=== PATIENT | male | born 1990 | race African-American/Black ===

== ENCOUNTER 2020-01-26 12:09 | Emergency (ER) | payer MEDICARE, MEDICAID, SELFPAY ==
--- NOTE | ~2020-01-26 | XR_ITS ---
EXAMINATION: XR chest 2V EXAM DATE: 01/26/2020 13:12 INDICATION: Chest pain and tightness. TECHNIQUE: Frontal and lateral projections of the chest obtained and reviewed. Comparison is made to prior examination from 10/21/2019. FINDINGS: There is a right-sided portacatheter. The lungs are clear. There are no pleural effusions . Cardiac silhouette is prominent but magnified on this AP technique. There is no pneumothorax elke pected. The bones and soft tissues are unremarkable. IMPRESSION: No acute cardiopulmonary findings. Reviewed, dictated and finalized at location B.
[2020-01-26 12:07] VITALS: BP 138/75; PULSE 74; RESP 16; TEMP 36.3; O2SAT 100
[2020-01-26 12:19] VITALS: PULSE 75
--- NOTE | 2020-01-26 12:29 | ECG_ITS ---
Measurements Intervals [place] Rate: 70 P: 45 MS: 174 QRS: 31 QRSD: 96 T: 28 QT: 389 QTc: 422 Interpretive Statements SINUS RHYTHM POSSIBLE LEFT ATRIAL ENLARGEMENT BORDERLINE ECG Electronically Signed On 01-26-2020 13:02:21 CDT by Jasper Ruiz D.O.
--- NOTE | 2020-01-26 12:30 | ED.GENADULT ---
HPI - General Adult General Chief complaint: Unspecified Stated complaint: CP Time Seen by Provider: 01/26/20 12:21 Source: patient and family Mode of arrival: ambulatory Limitations: no limitations History of Present Illness HPI narrative: Pt is a 29 y/o male who presents to the ED with c/o a sudden onset of lightheadedness, CP, sweats, SOB, and numbness/tingling to his fingers and toes that lasted about 10 minutes. Pt states that he was about to start his dialysis treatment when the Sx started. 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 Ram and he has been getting dialysis for 3 years. Pt got out of [facility] yesterday after he had a parathyroidectomy on Friday. Pt's mother states that he had 3.5 nodules removed. He was Rx Calcium after he had his surgery. He denies a H/o anxiety or panic attacks, but he reports a H/O depression. Pt did not start new medications today. He states that he is not in any pain in the ED bed. MD complaint: lightheadedness Onset (ago): day(s) (this morning) Pain Consistency: now resolved Associated symptoms: other ( CP, sweats, SOB, and numbness/tingling to his fingers and toes) Treatments prior to arrival: none Related Data Home Medications Medication Instructions Recorded Confirmed B complex with C 20-folic acid 1 cap PO DAILY 10/07/19 10/07/19 [[place] Caps] atorvastatin 5 mg PO DAILY 10/07/19 10/07/19 calcitriol 0.25 mcg PO 3XW 10/07/19 10/07/19 cholecalciferol (vitamin D3) 5,000 unit PO DAILY 10/07/19 10/07/19 [Vitamin D3] cinacalcet 90 mg PO DAILY 10/07/19 10/07/19 docusate sodium 100 mg PO BID 10/07/19 10/07/19 folic acid 1 mg PO DAILY 10/07/19 10/07/19 furosemide 80 mg PO BID 10/07/19 10/07/19 metoprolol tartrate 100 mg PO Q12H 10/07/19 10/07/19 mirtazapine 7.5 mg PO HS 10/07/19 10/07/19 omeprazole 40 mg PO BID 10/07/19 10/07/19 ondansetron HCl 4 mg PO DAILY 10/07/19 10/07/19 potassium chloride [Klor-Con M10] 10 meq PO DAILY 10/07/19 10/07/19 senna 8.6 mg PO DAILY 10/07/19 10/07/19 sevelamer carbonate 800 mg PO DIRECTED 10/07/19 10/07/19 warfarin 10 mg PO DAILY 10/07/19 10/07/19 Allergies Allergy/AdvReac Type Severity Reaction Status Date / Time bacitracin Allergy Unknown RASH THAT Verified 10/22/19 10:31 SPREADS benzalkonium chloride Allergy Unknown RASH THAT Verified 10/22/19 10:31 SPREADS gramicidin D Allergy Unknown RASH THAT Verified 10/22/19 10:31 SPREADS hydrocortisone Allergy Unknown RASH THAT Verified 10/22/19 10:31 SPREADS neomycin Allergy Unknown Rash Verified 11/11/19 09:37 polymyxin B Allergy Unknown RASH THAT Verified 10/22/19 10:31 SPREADS Review of Systems Review of Systems: All systems reviewed & are unremarkable except as noted in HPI and below Constitutional: Constitutional: Reports other (sweats) Cardiovascular: Cardiovascular: Reports chest pain and Reports lightheadedness Respiratory: Respiratory: Reports dyspnea Neurologic: Reports numbness (to fingers and toes) and Reports tingling (to fingers and toes) PMFSH Past Medical History Medical History (Updated 01/26/20 @ 14:48 by Marcelo Helm MD) A-fib Anemia Asthma 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 Chronic renal failure CVA (cerebral vascular accident) Dialysis patient DVT (deep venous thrombosis) GERD (gastroesophageal reflux disease) H/O: HTN (hypertension) History of angina History of Clostridium difficile colitis IBS (irritable bowel syndrome) Pneumonia Sleep apnea Surgical History Surgical History (Updated 01/26/20 @ 12:57 by Ila Stanton) H/O parathyroidectomy History of tonsillectomy Social History Social History Smoking status: Never smoker Alcohol intake: never Gender identity (if verbalized by the patient): Male Exam Narrative: Exam Narrative: General appearance: Well-developed, well-nourished Skin: Normal color Head: Normocephalic, nontraumatic
[2020-01-26 12:45] LABS: Basophils Percent Auto 0.2 % (0.2-1.2); Eosinophils Absolute Auto 0.2 K/mm3 (0-0.3); Eosinophils Percent Auto 3.6 % (0-4.4); Hematocrit 28.5 % (42.0-52.0); Immature Granulocyte Absolute 0.02 K/mm3 (0.00-0.031); Immature Granulocyte Percent A 0.3 % (0-0.5); Lymphocytes Absolute Auto 1.72 K/mm3 (0.9-3.2); Lymphocytes Percent Auto 29.6 % (18.3-44.2); Mean Corpuscular HGB Conc 31.6 g/dl (32-36); Mean Corpuscular Hemoglobin 32.4 pg (26-34); Mean Corpuscular Volume 102.5 fl (80-100); Mean Platelet Volume 9.6 fl (7.4-10.4); Monocytes Absolute Auto 0.6 K/mm3 (0.1-0.6); Monocytes Percent Auto 9.8 % (2.6-8.5); Neutrophils Absolute Auto 3.3 K/mm3 (1.3-6.7); Neutrophils Percent Auto 56.5 % (45.5-73.1); Platelet Count Result 202 k/mm3 (150-375); Red Blood Count 2.78 M/mm3 (4.6-6.20); Red Cell Distribution Width 14.2 % (11.5-14.5); White Blood Count 5.8 K/mm3 (4.5-10.0)
[2020-01-26 12:55] LABS: INR 1.1; Prothrombin Time 13.4 Seconds (11.1-14.7)
[2020-01-26 12:56] LABS: Partial Thromboplastin Time 41.3 SECONDS (22.3-36.8)
[2020-01-26 13:03] LABS: Blood Urea Nitrogen 98 mg/dL (9-20); Calcium 8.3 mg/dL (8.4-10.2); Carbon Dioxide 22 mmol/L (22-30); Chloride 96 mmol/L (98-107); Glucose 89 mg/dL (75-110); Potassium 6.3 mmol/L (3.4-5.0); Sodium 132 mmol/L (137-145)
[2020-01-26 13:10] LABS: Estimated CRCL calculation 8 ml/min; Estimated Glomerular Filt Rate 4; Troponin I < 0.012 ng/mL (0.000-0.034)
[2020-01-26 13:31] LABS: Thyroid Stimulating Hormone 0.074 uIU/mL (0.465-4.680)
[2020-01-26 14:02] VITALS: BP 138/87; PULSE 74; RESP 16; O2SAT 96
[2020-01-26 15:13] VITALS: BP 140/84; PULSE 80; RESP 16; O2SAT 98
== END 2020-01-26 15:20 | disposition home or self-care (01) ==
PROVIDERS: Emergency Provider Emergency Medicine; PCP Emergency Medicine
DX: R20.2 Paresthesia of skin (principal); I48.91 Unspecified atrial fibrillation; D64.9 Anemia, unspecified; J45.909 Unspecified asthma, uncomplicated; I12.0 Hypertensive chronic kidney disease with stage 5 chronic kidney disease or end stage renal disease; N18.6 End stage renal disease; Z99.2 Dependence on renal dialysis; G47.30 Sleep apnea, unspecified; Z86.73 Personal history of transient ischemic attack (TIA), and cerebral infarction without residual deficits; Z86.718 Personal history of other venous thrombosis and embolism; Z79.01 Long term (current) use of anticoagulants
CPT/HCPCS: 36415; 71046; 80048; 84443; 84484; 85025; 85610; 85730; 93005; 99284

== ENCOUNTER → 2020-06-21 11:16 | Outpatient (CLI) | payer MEDICARE, MEDICAID, SELFPAY ==
--- NOTE | ~2020-06-21 | MR_ITS ---
EXAMINATION: MR thoracic spine wo con EXAM DATE: 06/21/2020 12:31 INDICATION: Acute mid to low back pain. TECHNIQUE: Multi-sequential, multiplanar MR images of the thoracic spine were obtained without contra st. Sagittal T1, T2, T2 fat saturation, axial T2 weighted images reviewed. Comparison is made to vanesa or examination from 10/15/2017. FINDINGS: There is fluid signal within the T7-8 disc level, with edema throughout these vertebral bod ies. This is new compared to previous examination. Most likely an acute inflammatory process such as discitis and osteomyelitis. No paraspinal or epidural fluid collection suspected. The spinal cord sig nal intensity and intrinsic morphology is normal. Mild diffuse thoracic facet arthropathy. Central ca nal and neural foramen are widely patent. Several small hemangiomata. IMPRESSION: 1. Acute inflammatory process centered at T7-8, suspicious for discitis/osteomyelitis. 2. Mild thoracic facet arthropathy. Kemal Land MD acknowledged receipt of suspected acute finding at 20:52 this evening. Reviewed, dictated and finalized at location A. IMPRESSION: 1. Acute inflammatory process centered at T7-8, suspicious for discitis/osteom yelitis. 2. Mild thoracic facet arthropathy. Kemal Land MD acknowledged receipt of suspected acute finding at 20:52 thi s evening.
--- NOTE | ~2020-06-21 | MR_ITS ---
EXAMINATION: MR lumbar spine wo con EXAM DATE: 06/21/2020 12:38 INDICATION: Acute low back pain. TECHNIQUE: Multi-sequential, multiplanar MR images of the lumbar spine were obtained without contrast . Sagittal T1, T2, T2 fat saturation images. Axial T2 weighted images. Comparison is made to prior examination from 10/15/2017. FINDINGS: There is moderate disc disease at L4-5, mild disc disease at L2-3 and L3-4. The conus medul isabela terminates at the T12-L1 level and has normal signal intensity and morphology. There are scatt ered focal signal abnormalities consistent with hemangiomata, otherwise without focal suspicious adrian ow signal abnormalities. There is 3 mm retrolisthesis L4 on L5. The vertebral bodies are otherwise al igned. Paraspinal soft tissue is unremarkable. Level by level evaluation: T12-L1: Disc does not extend beyond the endplate margin. Facet arthropathy: Mild. Neural foraminal stenosis: No stenosis. Central canal stenosis: No stenosis. L1-L2: Disc does not extend beyond the endplate margin. Facet arthropathy: Mild. Neural foraminal stenosis: No stenosis. Central canal stenosis: No stenosis. L2-L3: There is a mild diffuse disc bulge. Facet arthropathy: Mild. Neural foraminal stenosis: Mild left. Central canal stenosis: No stenosis. L3-L4: There is a mild diffuse disc bulge. Facet arthropathy: Mild to moderate. Neural foraminal stenosis: Mild left. Central canal stenosis: Mild. L4-L5: There is a moderate diffuse disc bulge. Facet arthropathy: Moderate. Neural foraminal stenosis: Mild to moderate bilateral. Central canal stenosis: Moderate. L5-S1: There is a minimal diffuse disc bulge. Facet arthropathy: Mild. Neural foraminal stenosis: No stenosis. Central canal stenosis: No stenosis. There is been mild progression of the disc disease and retrolisthesis at L4-5, and the central canal stenosis. IMPRESSION: 1. L4-5 grade 1 retrolisthesis, moderate disc disease, arthropathy and central canal stenosis. 2. Otherwise mild lumbar spondylosis. Reviewed, dictated and finalized at location A.
== END ==
PROVIDERS: Visit Provider Internal Medicine Hematology & Oncology
DX: D59.3 Hemolytic-uremic syndrome (principal); M47.896 Other spondylosis, lumbar region
CPT/HCPCS: 72146; 72148

== ENCOUNTER 2021-10-18 09:31 | Emergency (ER) | payer OTHER, SELFPAY ==
--- NOTE | ~2021-10-18 | CT_ITS ---
EXAMINATION: CT abdomen pelvis w con EXAM DATE: 10/18/2021 10:30 INDICATION: Abdominal pain, multiple lumps in abdomen. On dialysis. TECHNIQUE: Spiral CT of the abdomen and pelvis was performed following intravenous injection of 100 m L Omnipaque 350. Axial, coronal and sagittal images of the abdomen and pelvis were reviewed. The do se-length product (DLP) for this examination was 1632.53 mGy-cm. The exposure was tailored according to patient size (auto mA exposure control), and iterative reconstruction (ASIR) was used as addition al dose reduction technique. Comparison is made to prior examination from 06/19/2019. FINDINGS: Calcified vasa deferentia indicating patient may have diabetes. Additionally, multiple smal l nodules of subcutaneous density likely insulin injection site granulomas which are not present on p revious examination. Perhaps these correlate to patient's multiple lumps reported, please clinically correlate. Previously seen peritoneal dialysis catheter no longer present. Appearance to kidneys consistent with end-stage renal disease. There is bilateral nephrolithiasis. No hydronephrosis. Liver, spleen, adren al glands and pancreas are unremarkable. There is moderate diffuse colonic colonic diverticulosis. There is no adjacent inflammatory change t o suggest diverticulitis. Expected amount of colonic stool. Small bowel and stomach are unremarkable. No retroperitoneal or pelvic lymphadenopathy. Right femoral bone islands. Lung bases unremarkable. IMPRESSION: 1. Moderate colonic diverticulosis. 2. No acute intra-abdominal findings. Reviewed, dictated and finalized at location A. OLATE PACKER
[2021-10-18 09:33] VITALS: BP 123/70; PULSE 92; RESP 20; O2SAT 99
[2021-10-18 10:00] VITALS: BP 102/51; PULSE 87; RESP 14; O2SAT 97
[2021-10-18] MEDS: HYDROmorphone HCL INJ (*CRX) 1 MG/ML SYR 0.5 MG IV PUSH (10:13)
[2021-10-18] MEDS: ONDANSETRON INJ 4 MG/2 ML VIAL IV PUSH (10:14)
[2021-10-18] MEDS: SODIUM CHLORIDE 0.9% IV 1,000 ML 999 ML IV CONT (10:15)
[2021-10-18 10:57] LABS: Basophils Percent Auto 0.5 % (0.2-1.2); Eosinophils Absolute Auto 0.2 K/mm3 (0-0.3); Eosinophils Percent Auto 1.9 % (0-4.4); Hematocrit 37.9 % (42.0-52.0); Immature Granulocyte Absolute 0.07 K/mm3 (0.00-0.031); Immature Granulocyte Percent A 0.8 % (0-0.5); Lymphocytes Absolute Auto 2.66 K/mm3 (0.9-3.2); Lymphocytes Percent Auto 30.4 % (18.3-44.2); Mean Corpuscular HGB Conc 31.7 g/dl (32-36); Mean Corpuscular Volume 104.1 fl (80-100); Mean Platelet Volume 9.7 fl (7.4-10.4); Monocytes Absolute Auto 0.7 K/mm3 (0.1-0.6); Monocytes Percent Auto 8.2 % (2.6-8.5); Neutrophils Absolute Auto 5.1 K/mm3 (1.3-6.7); Neutrophils Percent Auto 58.2 % (45.5-73.1); Platelet Count Result 282 k/mm3 (150-375); Red Blood Count 3.64 M/mm3 (4.6-6.20); Red Cell Distribution Width 13.9 % (11.5-14.5); White Blood Count 8.7 K/mm3 (4.5-10.0)
[2021-10-18 11:00] VITALS: BP 110/68; PULSE 79; RESP 14; O2SAT 97
[2021-10-18 11:09] LABS: Alanine Aminotransferase 12 U/L (4-50); Albumin Level 4.9 g/dL (3.5-5.1); Alkaline Phosphatase 100 U/L (38-126); Anion Gap 15 mmol/L (8-16); Aspartate Amino Transferase 21 U/L (17-59); Bilirubin,Total 0.4 mg/dL (0.2-1.3); Blood Urea Nitrogen 25 mg/dL (9-20); Calcium 9.2 mg/dL (8.4-10.2); Carbon Dioxide 27 mmol/L (22-30); Chloride 93 mmol/L (98-107); Estimated CRCL calculation 15 ml/min; Estimated Glomerular Filt Rate 8; Glucose 98 mg/dL (65-110); Lipase 212 U/L (23-300); Potassium 4.1 mmol/L (3.4-5.0); Sodium 135 mmol/L (137-145)
--- NOTE | 2021-10-18 12:16 | ED.ABDPAIN ---
HPI - Abdominal Pain General Chief Complaint: Abdominal Pain Stated Complaint: abd pain Time Seen by Provider: 10/18/21 09:52 Source: patient and RN notes reviewed Mode of arrival: ambulatory Limitations: no limitations History of Present Illness HPI narrative: Patient presents with right upper quadrant pain for the last few weeks. Got worse today. Worse with movement, better with certain position. Associated with nausea. Patient reported history of constipation because of the dialysis medication. Patient had hemodialysis this morning prior to arrival to the emergency room. Patient denies any fever, chills, vomiting, or diarrhea. Patient denies any history of abdominal surgery, history of peritoneal dialysis catheter years ago. History of hypertension, hemodialysis, hyperlipidemia, asthma. Also history of parathyroidectomy Related Data Home Medications Medication Instructions Recorded Confirmed B complex with C 20-folic acid 1 cap PO DAILY 10/07/19 09/14/21 [[place] Caps] atorvastatin 5 mg PO DAILY 10/07/19 09/14/21 cholecalciferol (vitamin D3) 5,000 unit PO DAILY 10/07/19 09/14/21 [Vitamin D3] folic acid 1 mg PO DAILY 10/07/19 09/14/21 furosemide 80 mg PO BID 10/07/19 09/14/21 metoprolol tartrate 100 mg PO Q12H 10/07/19 09/14/21 omeprazole 40 mg PO BID 10/07/19 09/14/21 warfarin 9 mg PO DAILY 10/07/19 09/14/21 gabapentin 100 mg capsule 300 mg PO BID cap 04/04/21 09/14/21 potassium chloride 20 meq PO DAILY 07/19/21 09/14/21 Allergies Allergy/AdvReac Type Severity Reaction Status Date / Time bacitracin Allergy Unknown RASH THAT Verified 10/03/21 14:02 SPREADS benzalkonium chloride Allergy Unknown RASH THAT Verified 10/03/21 14:02 SPREADS gramicidin D Allergy Unknown RASH THAT Verified 10/03/21 14:02 SPREADS hydrocortisone Allergy Unknown RASH THAT Verified 10/03/21 14:02 SPREADS neomycin Allergy Unknown Rash Verified 10/03/21 14:02 polymyxin B Allergy Unknown RASH THAT Verified 10/03/21 14:02 SPREADS Review of Systems Review of Systems: CONSTITUTIONAL: Denies fever, chills, or sweats. EYES: Denies visual changes, redness, or discharge. ENT: Denies rhinorrhea, congestion, sore throat, or otalgia. CARDIOVASCULAR: Denies chest pain, palpitations, or edema. RESPIRATORY: Denies cough or dyspnea. GASTROINTESTINAL: Denies abdominal pain, nausea, vomiting, or diarrhea. GENITOURINARY: Denies dysuria or hematuria. SKIN: Denies rash or itching. MUSCULOSKELETAL: Denies back pain, joint pain, or myalgia. NEUROLOGIC: Denies headache, numbness, or weakness. PSYCHIATRIC: Denies anxiety or depression. 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 Chronic renal failure CVA (cerebral vascular accident) Dialysis patient DVT (deep venous thrombosis) GERD (gastroesophageal reflux disease) H/O: HTN (hypertension) History of angina History of Clostridium difficile colitis IBS (irritable bowel syndrome) Pneumonia Sleep apnea Surgical History Surgical History H/O parathyroidectomy History of tonsillectomy Family History Family History Sibling Hypertension Patient's sister is in good health Patient's brother is in good health Mother Family history of rheumatoid arthritis Family history of neuropathy Father Patient's father is in good health Carcinoma of colon Social History Social History Smoking status: Former smoker Alcohol intake: never Gender identity (if verbalized by the patient): Male Exam Narrative: General appearance: Well-developed, well-nourished Skin: Normal color Head: Normocephalic, nontraumatic Eyes: Clear conjunctiva ENT: Oropharynx normal, ears normal, nose
[2021-10-18 12:31] VITALS: BP 113/81; PULSE 78; RESP 14; O2SAT 97
== END 2021-10-18 12:31 | disposition home or self-care (01) ==
PROVIDERS: Emergency Provider Emergency Medicine; PCP Emergency Medicine
DX: R10.9 Unspecified abdominal pain (principal); E78.5 Hyperlipidemia, unspecified; I48.91 Unspecified atrial fibrillation; I12.9 Hypertensive chronic kidney disease with stage 1 through stage 4 chronic kidney disease, or unspecified chronic kidney disease; N18.9 Chronic kidney disease, unspecified; G47.30 Sleep apnea, unspecified; Z99.2 Dependence on renal dialysis; Z86.2 Personal history of diseases of the blood and blood-forming organs and certain disorders involving the immune mechanism; Z87.09 Personal history of other diseases of the respiratory system; Z87.891 Personal history of nicotine dependence; Z86.73 Personal history of transient ischemic attack (TIA), and cerebral infarction without residual deficits; Z86.718 Personal history of other venous thrombosis and embolism; Z87.19 Personal history of other diseases of the digestive system; Z87.01 Personal history of pneumonia (recurrent); Z79.899 Other long term (current) drug therapy; Z79.01 Long term (current) use of anticoagulants
CPT/HCPCS: 36415; 74177; 80053; 83690; 85025; 96361; 96374; 96375; 99284; J1170; J2405; J7030; Q9967

== ENCOUNTER 2022-03-30 23:51 | Emergency (ER) | payer OTHER, SELFPAY ==
--- NOTE | ~2022-03-30 | XR_ITS ---
XR chest 1V portable DATE: 03/31/2022 01:16 INDICATION: DARYA TECHNIQUE: Portable upright AP chest on 03/31/2022 at 0113 hours COMPARISON: 01/26/2020 AP and lateral chest FINDINGS: Right Port-A-Cath catheter tip in the superior vena cava. No pulmonary consolidation, pleural effusion or pneumothorax is evident. Heart size is likely within normal range considering magnification associated with AP projection. IMPRESSION: No active disease Right Port-A-Cath Reviewed, dictated and finalized at location A.
[2022-03-30 23:52] VITALS: BP 103/63; PULSE 79; RESP 17; TEMP 35.7; O2SAT 96
[2022-03-31] VITALS: O2SAT 95
--- NOTE | 2022-03-31 00:08 | ECG_ITS ---
Measurements Intervals [place] Rate: 83 P: 36 UT: 156 QRS: 40 QRSD: 101 T: 1 QT: 378 QTc: 445 Interpretive Statements SINUS RHYTHM DELAYED PRECORDIAL R/S TRANSITION NONSPECIFIC ST & T-WAVE ABNORMALITY- INF/HIGH LAT LEADS BASELINE ARTIFACT- I, AVL, V6 BORDERLINE ECG Electronically Signed On 03-31-2022 7:45:53 CDT by Jasper Ruiz D.O.
[2022-03-31] MEDS: IPRATROPIUM BR 0.02% INH SOLN 0.5 MG/2.5 ML VIAL INHALATION ×3 (00:21→01:10)
[2022-03-31] MEDS: ALBUTEROL SULFATE NEB 2.5 MG/3 ML INH 5 MG INHALATION ×3 (00:21→01:10)
[2022-03-31] MEDS: predniSONE 20 MG TABLET 60 MG PO (00:28)
[2022-03-31 00:30] VITALS: PULSE 80; RESP 20
--- NOTE | 2022-03-31 00:41 | PC.NURSE ---
Patient lacey figueredo, quality assurance lab technician and this RN unable to obtain labs at this time. Notified nurse charge rn, she stated to call phlebotomy. Called [facility] with phlebotomy, she stated she will be on her way draw patient.
--- NOTE | 2022-03-31 00:57 | PC.NURSE ---
Phlebotomy here to draw patient.
[2022-03-31 01:17] LABS: Basophils Absolute Auto 0.1 K/mm3 (0.0-0.1); Basophils Percent Auto 0.3 % (0.2-1.2); Eosinophils Absolute Auto 0.3 K/mm3 (0-0.3); Eosinophils Percent Auto 1.7 % (0-4.4); Hematocrit 39.9 % (42.0-52.0); Hemoglobin 12.3 g/dL (14.0-18.0); Immature Granulocyte Absolute 0.09 K/mm3 (0.00-0.031); Immature Granulocyte Percent A 0.6 % (0-0.5); Lymphocytes Absolute Auto 3.63 K/mm3 (0.9-3.2); Lymphocytes Percent Auto 23.2 % (18.3-44.2); Mean Corpuscular HGB Conc 30.8 g/dl (32-36); Mean Corpuscular Hemoglobin 32.3 pg (26-34); Mean Corpuscular Volume 104.7 fl (80-100); Mean Platelet Volume 10.8 fl (7.4-10.4); Monocytes Absolute Auto 0.5 K/mm3 (0.1-0.6); Monocytes Percent Auto 3.4 % (2.6-8.5); Neutrophils Absolute Auto 11.1 K/mm3 (1.3-6.7); Neutrophils Percent Auto 70.8 % (45.5-73.1); Platelet Count Result 223 k/mm3 (150-375); Red Blood Count 3.81 M/mm3 (4.6-6.20); Red Cell Distribution Width 14.4 % (11.5-14.5); White Blood Count 15.7 K/mm3 (4.5-10.0)
[2022-03-31 01:32] LABS: Alanine Aminotransferase 13 U/L (6-50); Albumin Level 4.8 g/dL (3.5-5.1); Alkaline Phosphatase 97 U/L (38-126); Anion Gap 19 mmol/L (8-16); Aspartate Amino Transferase 20 U/L (17-59); Bilirubin,Total 0.3 mg/dL (0.2-1.3); Blood Urea Nitrogen 51 mg/dL (9-20); Calcium 11.1 mg/dL (8.4-10.2); Carbon Dioxide 24 mmol/L (22-30); Chloride 92 mmol/L (98-107); Glucose 113 mg/dL (65-110); Magnesium 2.4 mg/dL (1.6-2.3); Potassium 4.9 mmol/L (3.4-5.0); Sodium 135 mmol/L (137-145)
[2022-03-31 01:36] LABS: Estimated Glomerular Filt Rate 5; NT Pro B Type Natriuretic Pept 1330 pg/mL (5-100)
[2022-03-31 01:39] LABS: D Dimer 1.15 ug/mL (<0.48)
[2022-03-31 01:40] VITALS: PULSE 78; RESP 19
--- NOTE | 2022-03-31 02:15 | ED.SOB ---
HPI - SOB/Dyspnea General Chief Complaint: Shortness of Breath/Dyspnea Stated Complaint: sob on albuterol neb per EMS Time Seen by Provider: 03/31/22 00:08 History of Present Illness HPI Narrative: 32-year-old male with history of asthma, ESRD on hemodialysis presents here with sudden onset difficulty breathing and chest tightness, he has a nebulizer at home with ipratropium, and this did not help, EMS to give him albuterol the way here and he says that immediately helped him with his symptoms. He has been going dialysis and not missed any appointments, he has been taking more fluid off than usual. No fevers or chills, cough. No nausea or vomiting. He is currently on blood thinners. Related Data Home Medications Medication Instructions Recorded Confirmed B complex with C 20-folic acid 1 cap PO DAILY 10/07/19 03/05/22 [[place] Caps] atorvastatin 5 mg PO DAILY 10/07/19 03/05/22 cholecalciferol (vitamin D3) 5,000 unit PO DAILY 10/07/19 03/05/22 [Vitamin D3] folic acid 1 mg PO DAILY 10/07/19 03/05/22 furosemide 80 mg PO BID 10/07/19 03/05/22 metoprolol tartrate 100 mg PO Q12H 10/07/19 03/05/22 omeprazole 40 mg PO BID 10/07/19 03/05/22 warfarin 9 mg PO DAILY 10/07/19 03/05/22 gabapentin 100 mg capsule 300 mg PO BID cap 04/04/21 03/05/22 Allergies Allergy/AdvReac Type Severity Reaction Status Date / Time bacitracin Allergy Unknown RASH THAT Verified 03/30/22 23:59 SPREADS benzalkonium chloride Allergy Unknown RASH THAT Verified 03/30/22 23:59 SPREADS gramicidin D Allergy Unknown RASH THAT Verified 03/30/22 23:59 SPREADS hydrocortisone Allergy Unknown RASH THAT Verified 03/30/22 23:59 SPREADS neomycin Allergy Unknown Rash Verified 03/30/22 23:59 polymyxin B Allergy Unknown RASH THAT Verified 03/30/22 23:59 SPREADS Review of Systems Review of Systems: CONST: No fever. HEENT: No sore throat C/V: Dizziness RESP: No cough GI: No abdominal pain, nausea, vomiting : No dysuria. M/S: No joint pain. SKIN: No rash. 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 Chronic renal failure CVA (cerebral vascular accident) Dialysis patient DVT (deep venous thrombosis) GERD (gastroesophageal reflux disease) H/O: HTN (hypertension) History of angina History of Clostridium difficile colitis IBS (irritable bowel syndrome) Pneumonia Sleep apnea Surgical History Surgical History H/O parathyroidectomy History of tonsillectomy Family History Family History Sibling Hypertension Patient's sister is in good health Patient's brother is in good health Mother Family history of rheumatoid arthritis Family history of neuropathy Father Patient's father is in good health Carcinoma of colon Social History Social History Smoking status: Former smoker Alcohol intake: never Gender identity (if verbalized by the patient): Male Exam Narrative: EXAMINATION OF ORGAN SYSTEMS/BODY AREAS: Constitutional: Vital signs per nursing GENERAL: Appears to be having difficulty with breathing HEAD: Normal with no signs of head trauma. EYES: EOMI, conjunctiva normal ENT: Hearing grossly intact LUNGS: Nonlabored breathing. HEART: Labored respirations but speaking full sentences, decreased air movement ABD: [Soft], [nontender to palpation] EXT: Normal range of motion SKIN: [No rashes or lesions.] NEURO: [Alert and oriented x 3. No gross focal sensory or strength deficits.] PSYCH: Normal affect Course Course Emergency Course: 32-year-old male presenting with difficulty breathing, vital signs stable, exam shows some labored respirations wi
[2022-03-31 02:31] VITALS: BP 107/65; PULSE 83; RESP 17; TEMP 36.6; O2SAT 96
== END 2022-03-31 02:34 | disposition home or self-care (01) ==
PROVIDERS: Emergency Provider Emergency Medicine; PCP Emergency Medicine
DX: J45.901 Unspecified asthma with (acute) exacerbation (principal); I12.0 Hypertensive chronic kidney disease with stage 5 chronic kidney disease or end stage renal disease; N18.6 End stage renal disease; I48.91 Unspecified atrial fibrillation; D64.9 Anemia, unspecified; K21.9 Gastro-esophageal reflux disease without esophagitis; K58.9 Irritable bowel syndrome, unspecified; G47.30 Sleep apnea, unspecified; Z99.2 Dependence on renal dialysis; Z87.01 Personal history of pneumonia (recurrent); Z86.718 Personal history of other venous thrombosis and embolism; Z86.73 Personal history of transient ischemic attack (TIA), and cerebral infarction without residual deficits; E89.2 Postprocedural hypoparathyroidism; Z79.01 Long term (current) use of anticoagulants; Z87.891 Personal history of nicotine dependence; R06.02 Shortness of breath; R94.31 Abnormal electrocardiogram [ECG] [EKG]
CPT/HCPCS: 36415; 71045; 80053; 83735; 83880; 85025; 85380; 93005; 94640; 99284; J7512

== ENCOUNTER 2023-10-28 14:31 | Outpatient (CLI) | payer MEDICARE, MEDICAID, SELFPAY ==
[2023-10-28 15:32] LABS: SARS-CoV-2 RNA PCR Negative (Negative)
== END 2023-10-28 14:32 | disposition home or self-care (01) ==
PROVIDERS: PCP Emergency Medicine
DX: N18.6 End stage renal disease (principal); Z20.822 Contact with and (suspected) exposure to COVID-19; Z94.0 Kidney transplant status
CPT/HCPCS: 87635

== ENCOUNTER 2023-12-27 14:00 | Emergency (ER) | payer MEDICARE, MEDICAID, SELFPAY ==
[2023-12-27 14:06] VITALS: BP 121/74; PULSE 107; RESP 18; TEMP 36.7; O2SAT 100
[2023-12-27 14:46] VITALS: PULSE 97; RESP 16; O2SAT 100
--- NOTE | 2023-12-27 15:10 | ED.ABDPAIN ---
HPI - Abdominal Pain General Chief Complaint: Abdominal Pain Stated Complaint: ABD PAIN HX KIDNEY TRANSPLANT AT [facility] 11/08 Time Seen by Provider: 12/27/23 15:02 Source: patient, family and EMS Mode of arrival: EMS Limitations: no limitations History of Present Illness HPI narrative: 33 YEARS OLD MALE CAME TO THE EMERGENCY ROOM BY BY AMBULANCE FROM HOME COMPLAINING OF RIGHT LOWER QUADRANT PAIN STARTED 3 DAYS AGO, GOT WORSE THIS MORNING PRIOR TO ARRIVAL. 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 PATIENT HAS BEEN ON HEMODIALYSIS SINCE 2016. HE DENIES ANY FEVER, CHILLS, NAUSEA, VOMITING. Related Data Home Medications Medication Instructions Recorded Confirmed folic acid 1 mg tablet 1 mg PO DAILY 10/07/19 12/10/23 omeprazole 40 mg capsule,delayed 40 mg PO BID 10/07/19 12/10/23 release vitamin B complex and vitamin C 1 cap PO DAILY 10/07/19 12/10/23 no.20-folic acid 1 mg capsule (Jorge Caps) gabapentin 100 mg capsule 300 mg PO BID 04/04/21 12/10/23 ondansetron 8 mg disintegrating 8 mg PO Q8H PRN Nausea 04/30/22 12/10/23 tablet zinc 10 mg tablet 10 mg PO DAILY 08/05/23 12/10/23 Bactrim DS 1 tablet PO 3XW 12/10/23 12/10/23 Envarsus XR 4 tablet PO DAILY 12/10/23 12/10/23 Flomax 1 tablet PO DAILY 12/10/23 12/10/23 Myfortic 1 tablet PO BID 12/10/23 12/10/23 Protonix 1 tablet PO DAILY 12/10/23 12/10/23 Valcyte 1 tablet PO 3XW 12/10/23 12/10/23 amoxicillin 1 cap PO BID 12/10/23 12/10/23 aspirin 1 tablet PO DAILY 12/10/23 12/10/23 atorvastatin 1 tablet PO BID 12/10/23 12/10/23 carvedilol 1 tablet PO DAILY 12/10/23 12/10/23 cholecalciferol (vitamin D3) 1 cap PO BID 12/10/23 12/10/23 prednisone 1 tablet PO DAILY 01/24/24 01/24/24 warfarin 8 mg PO DAILY 12/10/23 12/10/23 Allergies Allergy/AdvReac Type Severity Reaction Status Date / Time bacitracin Allergy Unknown RASH THAT Verified 12/10/23 10:11 SPREADS benzalkonium chloride Allergy Unknown RASH THAT Verified 12/10/23 10:11 SPREADS gramicidin D Allergy Unknown RASH THAT Verified 12/10/23 10:11 SPREADS hydrocortisone Allergy Unknown RASH THAT Verified 12/10/23 10:11 SPREADS neomycin Allergy Unknown Rash Verified 12/10/23 10:11 polymyxin B Allergy Unknown RASH THAT Verified 12/10/23 10:11 SPREADS Review of Systems Review of Systems: All systems reviewed & are unremarkable except as noted in HPI and below PMFSH Past Medical History Medical History A-fib Anemia Asthma 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 Chronic renal failure CVA (cerebral vascular accident) Dialysis patient DVT (deep venous thrombosis) GERD (gastroesophageal reflux disease) H/O: HTN (hypertension) History of angina History of Clostridium difficile colitis IBS (irritable bowel syndrome) Pneumonia Sleep apnea Surgical History Surgical History H/O parathyroidectomy History of tonsillectomy Family History Family History Sibling Hypertension Patient's sister is in good health Patient's brother is in good health Mother Family history of rheumatoid arthritis Family history of neuropathy Father Patient's father is in good health Carcinoma of colon Social History Social History Smoking status: Former smoker Alcohol intake: never Substance use: never Substance use type: does not use Lack of Transportation: YES Lack of Food: Never True Current Housing: I Have Housing Concerned About Future Housing: No Difficulty Paying Gas/Electric Bills: No Difficulty Paying for Meds: YES Currently Unemployed: No Education: High School Diploma/GED Difficulty w/ Childca
--- NOTE | 2023-12-27 15:27 | PC.NURSE ---
attempted to access port with no success. Sterile field used and maintained during procedure. Pt states typically is easily to aspirate blood. Two nurses attempted to access port not flushing.
[2023-12-27 15:43] LABS: Basophils Percent Auto 0.2 % (0.2-1.2); Eosinophils Percent Auto 0.2 % (0-4.4); Hematocrit 38.6 % (42.0-52.0); Immature Granulocyte Absolute 0.08 K/mm3 (0.00-0.031); Immature Granulocyte Percent A 0.7 % (0-0.5); Lymphocytes Absolute Auto 0.53 K/mm3 (0.9-3.2); Lymphocytes Percent Auto 4.7 % (18.3-44.2); Mean Corpuscular HGB Conc 31.1 g/dl (32-36); Mean Corpuscular Hemoglobin 29.8 pg (26-34); Mean Corpuscular Volume 95.8 fl (80-100); Mean Platelet Volume 10.4 fl (7.4-10.4); Monocytes Percent Auto 8.8 % (2.6-8.5); Neutrophils Absolute Auto 9.6 K/mm3 (1.3-6.7); Neutrophils Percent Auto 85.4 % (45.5-73.1); Platelet Count Result 196 k/mm3 (150-375); Red Blood Count 4.03 M/mm3 (4.6-6.20); Red Cell Distribution Width 18.4 % (11.5-14.5); White Blood Count 11.2 K/mm3 (4.5-10.0)
[2023-12-27] MEDS: HYDROmorphone HCL INJ (*CRX) 1 MG/ML SYR 0.5 MG IV PUSH (15:51)
[2023-12-27] MEDS: ONDANSETRON INJ 4 MG/2 ML VIAL IV PUSH (15:51)
[2023-12-27] MEDS: SODIUM CHLORIDE 0.9% IV 1,000 ML 999 ML IV CONT (15:52)
[2023-12-27 15:53] LABS: Alanine Aminotransferase 15 U/L (6-50); Albumin Level 3.9 g/dL (3.5-5.1); Alkaline Phosphatase 87 U/L (38-126); Anion Gap 8 mmol/L (8-16); Aspartate Amino Transferase 23 U/L (17-59); Bilirubin,Total 0.9 mg/dL (0.2-1.3); Blood Urea Nitrogen 19 mg/dL (9-20); Calcium 9.7 mg/dL (8.4-10.2); Carbon Dioxide 28 mmol/L (22-30); Chloride 99 mmol/L (98-107); Estimated CRCL calculation 23 ml/min; Estimated Glomerular Filt Rate 15; Glucose 108 mg/dL (65-110); Lipase 30 U/L (23-300); Potassium 3.8 mmol/L (3.4-5.0); Sodium 135 mmol/L (137-145)
[2023-12-27 16:08] LABS: Appearance Urine Clear (Clear); Bacteria Urine None Seen /hpf; Bilirubin Urine Negative (Negative); Color Urine Yellow (Yellow); Glucose Urine UA Negative (Negative); Ketones Urine Negative (Negative); Leukocyte Esterase Ur 1+ LEU/UL (Negative); Nitrate Urine Negative (Negative); Protein Urine 3+ mg/dL (Negative); Specific Grav Ur 1.015 (1.001-1.035); Squamous Epithelial Cell Urine None seen /hpf (Few); Urobilinogen Urine 0.2 mg/dL (<2.0); pH Urine 8.5 (5.0-9.0)
[2023-12-27 16:12] LABS: Anisocytosis 1+ (NORMAL); Ovalocytes 1+ (NORMAL); Platelet Estimate Adequate (Adequate); Schistocytes None Seen (NORMAL)
[2023-12-27 16:13] LABS: Add Urine Microscopic? YES
--- NOTE | 2024-01-02 14:47 | PC.NURSE ---
LATE ENTRY This note is being entered to document information to the patient's record. The following information was omitted on [12/27/23], by [Chano Oviedo Rn]. NS Stop time 4212
== END 2023-12-27 16:46 | disposition left against medical advice (07) ==
PROVIDERS: Physician Assistant; Emergency Provider Emergency Medicine; PCP Emergency Medicine
DX: T86.12 Kidney transplant failure (principal); R10.31 Right lower quadrant pain; I12.0 Hypertensive chronic kidney disease with stage 5 chronic kidney disease or end stage renal disease; N18.6 End stage renal disease; Z99.2 Dependence on renal dialysis; D59.39 Other hemolytic-uremic syndrome; K58.9 Irritable bowel syndrome, unspecified; G47.30 Sleep apnea, unspecified; Z86.73 Personal history of transient ischemic attack (TIA), and cerebral infarction without residual deficits; Z86.718 Personal history of other venous thrombosis and embolism; Z87.01 Personal history of pneumonia (recurrent); Z87.891 Personal history of nicotine dependence; Z90.89 Acquired absence of other organs; Y83.0 Surgical operation with transplant of whole organ as the cause of abnormal reaction of the patient, or of later complication, without mention of misadventure at the time of the procedure
CPT/HCPCS: 36415; 80053; 81001; 83690; 85025; 87086; 96361; 96374; 96375; 99284; J1170; J2405; J7030

== ENCOUNTER 2024-01-03 13:11 | Outpatient (CLI) | payer MEDICARE, MEDICAID, SELFPAY ==
[2024-01-03 13:54] LABS: Hemoglobin 9.8 g/dL (14.0-18.0); Mean Corpuscular HGB Conc 31.6 g/dl (32-36); Mean Corpuscular Hemoglobin 30.1 pg (26-34); Mean Corpuscular Volume 95.1 fl (80-100); Mean Platelet Volume 8.8 fl (7.4-10.4); Platelet Count Result 202 k/mm3 (150-375); Red Blood Count 3.26 M/mm3 (4.6-6.20); Red Cell Distribution Width 17.8 % (11.5-14.5); White Blood Count 7.7 K/mm3 (4.5-10.0)
[2024-01-03 14:05] LABS: Alanine Aminotransferase 12 U/L (6-50); Albumin Level 3.6 g/dL (3.5-5.1); Alkaline Phosphatase 64 U/L (38-126); Anion Gap 10 mmol/L (8-16); Aspartate Amino Transferase 19 U/L (17-59); Bilirubin,Total 0.4 mg/dL (0.2-1.3); Blood Urea Nitrogen 34 mg/dL (9-20); Calcium 9.2 mg/dL (8.4-10.2); Carbon Dioxide 21 mmol/L (22-30); Chloride 107 mmol/L (98-107); Estimated Glomerular Filt Rate 12; Glucose 131 mg/dL (65-110); Potassium 3.4 mmol/L (3.4-5.0); Sodium 138 mmol/L (137-145)
[2024-01-06 16:18] LABS: Tacrolimus Prograf 4.3 mcg/L
== END 2024-01-03 13:12 | disposition home or self-care (01) ==
PROVIDERS: PCP Emergency Medicine; Visit Provider Internal Medicine Nephrology
DX: Z01.810 Encounter for preprocedural cardiovascular examination (principal)
CPT/HCPCS: 36415; 36591; 80053; 80197; 85027; 99211; G0463

== ENCOUNTER 2024-03-22 10:22 | Emergency (ER) | payer MEDICARE, MEDICAID, SELFPAY ==
[2024-03-22 10:25] VITALS: BP 170/100; PULSE 110; RESP 18; TEMP 36.7; O2SAT 100
[2024-03-22 10:48] LABS: Basophils Percent Auto 0.5 % (0.2-1.2); Eosinophils Absolute Auto 0.2 K/mm3 (0-0.3); Eosinophils Percent Auto 4.4 % (0-4.4); Hematocrit 35.7 % (42.0-52.0); Immature Granulocyte Absolute 0.03 K/mm3 (0.00-0.031); Immature Granulocyte Percent A 0.5 % (0-0.5); Lymphocytes Absolute Auto 0.31 K/mm3 (0.9-3.2); Lymphocytes Percent Auto 5.6 % (18.3-44.2); Mean Corpuscular HGB Conc 30.8 g/dl (32-36); Mean Corpuscular Hemoglobin 29.3 pg (26-34); Mean Corpuscular Volume 94.9 fl (80-100); Mean Platelet Volume 10.4 fl (7.4-10.4); Monocytes Absolute Auto 0.7 K/mm3 (0.1-0.6); Monocytes Percent Auto 13.3 % (2.6-8.5); Neutrophils Absolute Auto 4.2 K/mm3 (1.3-6.7); Neutrophils Percent Auto 75.7 % (45.5-73.1); Platelet Count Result 240 k/mm3 (150-375); Red Blood Count 3.76 M/mm3 (4.6-6.20); Red Cell Distribution Width 13.9 % (11.5-14.5); White Blood Count 5.5 K/mm3 (4.5-10.0)
[2024-03-22 11:00] LABS: Alanine Aminotransferase 25 U/L (6-50); Albumin Level 4.4 g/dL (3.5-5.1); Alkaline Phosphatase 108 U/L (38-126); Anion Gap 10 mmol/L (4-12); Aspartate Amino Transferase 25 U/L (17-59); Bilirubin,Total 0.7 mg/dL (0.2-1.3); Blood Urea Nitrogen 14 mg/dL (9-20); Calcium 9.9 mg/dL (8.4-10.2); Carbon Dioxide 22 mmol/L (22-30); Chloride 107 mmol/L (98-107); Estimated CRCL calculation 40 ml/min; Estimated Glomerular Filt Rate 29; Ethanol < 10 mg/dL (<10); Glucose 107 mg/dL (65-110); Potassium 3.5 mmol/L (3.4-5.0); Sodium 139 mmol/L (137-145)
[2024-03-22 11:30] VITALS: BP 156/80; PULSE 90; RESP 16; TEMP 36.6; O2SAT 100
[2024-03-22 11:34] LABS: Influenza A QL RT-PCR Negative (Negative); Influenza B QL RT-PCR Negative (Negative); RSV RNA, RT-PCR Negative (Negative); SARS-CoV-2 RNA PCR Negative (Negative)
[2024-03-22 11:40] LABS: Thyroid Stimulating Hormone Reflex 0.991 uIU/mL (0.465-4.68)
--- NOTE | 2024-03-22 12:25 | ECG_ITS ---
SEE SCANNED COPY FOR CONFIRMED REPORT MTDD
[2024-03-22 12:30] VITALS: BP 146/90; PULSE 91; RESP 18; TEMP 36.7; O2SAT 99
--- NOTE | 2024-03-22 12:40 | PC.NURSE ---
[place] with [facility] poison control, . States since liver values are normal and he took the medication 2 days ago -, just confer with acetaminophen and salicylate levels are negative. Case # [id number]
--- NOTE | 2024-03-22 12:43 | ED.GENADULT ---
HPI - General Adult General Chief complaint: Psychiatric Symptoms Stated complaint: SI w/ attempt a few nights ago Time Seen by Provider: 03/22/24 11:12 History of Present Illness HPI narrative: 34-year-old male with history of kidney transplant and depression presenting to the emergency department for evaluation after an intentional overdose. Patient states on Friday morning approximately 3:00 a.m. he had an intentional overdose for attempted suicide. Patient states that he did take approximately 15 of 650 mg strength acetaminophen and approximately 30 his 12.5 mg carvedilol. Patient reports approximately 20 minutes after taking the was he did have emesis and did notice some pills in the emesis. Patient states he slept until approximately 4:00 p.m. on Friday. Patient presented emergency department today for evaluation. At time of evaluation patient denies any complaints other than depression. Had the renal transplant and [facility] on October of 2023 Related Data Home Medications Medication Instructions Recorded Confirmed folic acid 1 mg tablet 1 mg PO DAILY 10/07/19 02/18/24 omeprazole 40 mg capsule,delayed 40 mg PO BID 10/07/19 02/18/24 release vitamin B complex and vitamin C 1 cap PO DAILY 10/07/19 02/18/24 no.20-folic acid 1 mg capsule (Jorge Caps) gabapentin 100 mg capsule 300 mg PO BID 04/04/21 02/18/24 zinc 10 mg tablet 10 mg PO DAILY 08/05/23 02/18/24 aspirin 81 mg tablet,delayed 81 mg PO DAILY 02/18/24 release atorvastatin 40 mg tablet 40 mg PO DAILY 02/18/24 cholecalciferol (vitamin D3) 50 50 mcg PO BID 02/18/24 mcg (2,000 unit) capsule mycophenolate sodium 360 mg 360 mg PO BID 02/18/24 tablet,delayed release (Myfortic) pantoprazole 40 mg tablet,delayed 40 mg PO DAILY 02/18/24 release (Protonix) prednisone 5 mg tablet 5 mg PO DAILY 02/18/24 sulfamethoxazole 800 1 tablet PO 3XW 02/18/24 mg-trimethoprim 160 mg tablet (Bactrim DS) tacrolimus 4 mg tablet,extended 12 mg PO DAILY 02/18/24 release 24 hr (Envarsus XR) tamsulosin 0.4 mg capsule (Flomax) 0.4 mg PO DAILY 02/18/24 valganciclovir 450 mg tablet 450 mg PO 3XW 02/18/24 (Valcyte) warfarin 4 mg tablet 8 mg PO DAILY 02/18/24 Allergies Allergy/AdvReac Type Severity Reaction Status Date / Time bacitracin Allergy Unknown RASH THAT Verified 03/22/24 10:32 SPREADS benzalkonium chloride Allergy Unknown RASH THAT Verified 03/22/24 10:32 SPREADS gramicidin D Allergy Unknown RASH THAT Verified 03/22/24 10:32 SPREADS hydrocortisone Allergy Unknown RASH THAT Verified 03/22/24 10:32 SPREADS neomycin Allergy Unknown Rash Verified 03/22/24 10:32 polymyxin B Allergy Unknown RASH THAT Verified 03/22/24 10:32 SPREADS Review of Systems Review of Systems: All systems reviewed & are unremarkable except as noted in HPI and below PMFSH Past Medical History Medical History A-fib Anemia Asthma 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 Chronic renal failure CVA (cerebral vascular accident) Dialysis patient DVT (deep venous thrombosis) Gastroesophageal reflux disease without esophagitis GERD (gastroesophageal reflux disease) H/O: HTN (hypertension) Hemolytic-uremic syndrome History of angina History of Clostridium difficile colitis Hypertension secondary to other renal disorders IBS (irritable bowel syndrome) Other specified disorders of kidney and ureter Pneumonia Sleep apnea Weakness of both lower limbs Surgical History Surgical History H/O parathyroidectomy History of tonsillectomy Kidney transplanted Family History Family History Sibling Hypertension Patient's sister is in good health Patient's brother is in good health Mother Family history of rheumatoid arthritis Family history of neuropa
[2024-03-22 12:54] LABS: Acetaminophen < 10 ug/mL (10-30); Salicylate < 1.0 mg/dL (2-20)
[2024-03-22 12:56] LABS: Appearance Urine Turbid (Clear); Bacteria Urine 4+ /hpf; Bilirubin Urine Negative (Negative); Blood Urine 2+ (Negative); Color Urine Yellow (Yellow); Glucose Urine UA Negative (Negative); Ketones Urine Trace mg/dL (Negative); Leukocyte Esterase Ur 3+ LEU/UL (Negative); Nitrate Urine Negative (Negative); Non Pathogenic Casts 0-2; Protein Urine 2+ mg/dL (Negative); Specific Grav Ur 1.013 (1.001-1.035); Squamous Epithelial Cell Urine None Seen /hpf (Few); Urobilinogen Urine 0.2 mg/dL (<2.0); WBC Urine >100 /hpf (0-3)
[2024-03-22 13:00] VITALS: BP 168/94; PULSE 98; RESP 18; TEMP 36.7; O2SAT 100
[2024-03-22 13:01] LABS: Add Urine Microscopic? YES
[2024-03-22 13:35] LABS: Amphetamine Screen Urine Negative (Negative); Benzodiazepines Screen Urine Negative (Negative); Cannabinoid Screen Urine Negative (Negative); Cocaine Screen Urine Negative (Negative); Methadone Screen Urine Negative (Negative); Opiate Screen Urine Negative (Negative); Phencyclidine Screen Urine Negative (Negative)
[2024-03-22 13:59] LABS: Barbiturate Screen Urine Negative (Negative)
--- NOTE | 2024-03-22 14:16 | PC.NURSE ---
Per poison control in regards to case [id number] case is closed
[2024-03-22 14:23] VITALS: BP 158/79; PULSE 96; RESP 24; O2SAT 100
[2024-03-22 20:11] VITALS: TEMP 37
== END 2024-03-22 20:06 | disposition short-term general hospital (02) ==
PROVIDERS: Emergency Provider Emergency Medicine; PCP Emergency Medicine
DX: T39.1X2A Poisoning by 4-Aminophenol derivatives, intentional self-harm, initial encounter (principal); N39.0 Urinary tract infection, site not specified; Z20.822 Contact with and (suspected) exposure to COVID-19; I48.91 Unspecified atrial fibrillation; D64.9 Anemia, unspecified; J45.909 Unspecified asthma, uncomplicated; I12.9 Hypertensive chronic kidney disease with stage 1 through stage 4 chronic kidney disease, or unspecified chronic kidney disease; N18.9 Chronic kidney disease, unspecified; Z86.718 Personal history of other venous thrombosis and embolism; K21.9 Gastro-esophageal reflux disease without esophagitis; Z86.73 Personal history of transient ischemic attack (TIA), and cerebral infarction without residual deficits
CPT/HCPCS: 36415; 80053; 80307; 81001; 84443; 85025; 87040; 87077; 87086; 87088; 87186; 87637; 93005; 96365; 99285; J0696

== ENCOUNTER 2024-08-24 12:09 | Outpatient (CLI) | payer MEDICARE, MEDICAID, SELFPAY ==
--- NOTE | ~2024-08-24 | XR_ITS ---
Left foot Technique: AP and lateral views were obtained. Clinical History: Pain Findings: No acute fracture or dislocation is seen. Osseous alignment is anatomic. Joint spaces are p reserved without erosive or degenerative change. Soft tissues are unremarkable. Impression: Unremarkable left foot radiographs. Reviewed, dictated and finalized at location . Impression: Unremarkable left foot radiographs.
--- NOTE | ~2024-08-24 | XR_ITS ---
Left ankle Technique: AP and lateral views were obtained. Clinical History: Pain Findings: No acute fracture or dislocation is seen. Osseous alignment is anatomic. Ankle mortise and other visualized joint spaces are preserved. Soft tissues are otherwise unremarkable. Impression: Unremarkable left ankle. Reviewed, dictated and finalized at location . Impression: Unremarkable left ankle.
== END 2024-08-24 12:10 | disposition home or self-care (01) ==
LOC: ANHIMG 12:12
PROVIDERS: PCP Emergency Medicine; Visit Provider Emergency Medicine
DX: M79.672 Pain in left foot (principal); M25.572 Pain in left ankle and joints of left foot
CPT/HCPCS: 73600; 73620

== ENCOUNTER 2025-08-10 12:49 | Emergency (ER) | payer MEDICARE, MEDICAID, SELFPAY ==
--- OUTSIDE RECORDS SUMMARY | 2023-07-11 13:30 | XMS_ITS | Encounter Summary ---
Author Organization [facility] Address [address] [place] [address] Care Team Providers Care Library Information Technician Name Role Phone Brooke Lawton RN Unavailable [phone] Kemal Land MD Unavailable [phone] Jesu Alonso MD Primary Care Provide r Shiv Gonslaves MD Unavailable [phone] Aly Mims MD Unavailable Ellen Pickett OD Unavailable [phone] Jasper Ruiz DO Unavailable [phone] Reason for Referral * Diagnostic Imaging (Routine) - Closed Specialty Diagnoses / Procedures Referred By Contac t Referred To Contact Diagnoses Dependence on renal dialysis End stage renal disease Other complication of arteriovenous dialysis fistula, initial encounter Procedures US Hemodialysis Access Bud Moore MD [address] [place] [address] Phone: tel: fax: [facility] 2 [facility] [place] [address] Referral ID Status Reason Start Date Expiration Date Visits Re quested Visits Authorized [id number] Closed 07/11/2023 08/09/2024 1 1 Reason for Visit * Auth/Cert Specialty Diagnoses / Procedures Referred By Arlyn t Referred To Contact Diagnoses ESRD on dialysis Procedures NA Referral ID Status Reason Start Date Expiration Date Visits Re quested Visits Authorized [id number] 1 1 Encounter Details Date Type Department Care Team (Latest Contact Info) Description 07/11/2023 1:30 PM CDT Hospital Encounter [facility] [address] [place] [id number] Dependence on renal dialysis; End stage renal disease (HCC); Other complication of arteriovenous dialysis fistula, initial encounter Social History Tobacco Use Types Packs/Day Years Used Date Smoking Tobacco: Never Smokeless Tobacco: Never Alcohol Use Standard Drinks/Week Comments No 0 (1 standard drink = 0.6 oz pur e alcohol) OASIS D0700: Social Isolation Answer Da te Recorded Frequency of experiencing loneliness or isolatio n Never 02/09/2024 OASIS A1250: Transportation Answer Date Recorded Lack of Transportation (Medical) No 02/09/2024 Lack of Transportation (Non-Medical) No 02/09/2024 Patient Unable or Declines to Respond No 02/09/2024 OASIS B1300: Health Literacy Answer [place] e Recorded Frequency of needing help to read materials from doctor or pharmacy Never 02/09/2024 [facility] Utilities Answer Date Recorded In the past 12 months has e [employer], [employer], oil, or water [employer] threatened to shut off services in your home? No 03/25/2024 Social Connection and Isolation Panel Answer Date Recorded In a typical week, how many times do you talk on the phone with family, friends, or neighbors? Three times a week 03/25/2024 How often do you get togethe r with friends or relatives? Three times a week 03/25/2024 How often do you attend chur or hinduism services? More than 4 times per year 03/25/2024 Do you belong to any clubs o r organizations such as catholic groups, unions, fraternal or athletic groups, or school groups? No 03/25/2024 How often do you attend meet ings of the clubs or organizations you belong to? Never 03/25/2024 Are you , , di vorced, , never , or living with a partner? Never 03/25/2024 AUDIT-C Answer Date Recorded Q1: How often do you have a drink containing alcohol? Never 03/25/2024 Q2: How many drinks containi ng alcohol do you have on a typical day when you are drinking? Patient does not drink Q3: How often do you have si x or more drinks on one occasion? Never 03/25/2024 Overall Financial Resource Strain (CARDIA) Answe r Date Recorded How hard is it for you to pa y for the very basics like food, housing, medical care, and heating? Not very hard 03/25/2024 PHQ-2 Answer Date Recorded PHQ-2 Total Score 0 01/18/2024 [facility] Occupat ional [facility] - Occupational Stress Questionnaire Answer Date Recorded Do you feel stress - tense, restless, nervous, or anxious, or unable to sleep at night because your mind is troubled all the time - these days? Very much 03/25/2024 Exercise Vital Sign Answer Date Recorde d On average, how many days pe r week do you engage in moderate to strenuous exercise (like a brisk walk)? 0 days 03/25/2024 On average, how many minutes do you engage in exercise at this level? 0 min 03/25/2024 Hunger Vital Sign Answer Date Recorded Within the past 12 months, y ou worried that your food would run out before you got the money to buy more. Never true 03/25/20 24 Within the past 12 months, t he food you bought just didn't last and you didn't have money to get more. Never true 03/25/2024 PRAPARE - Transportation Answer Date Re corded In the past 12 months, has l ack of transportation kept you from medical appointments or from getting medications? No 07/2024 In the past 12 months, has l ack of transportation kept you from meetings, work, or from getting things needed for daily living? No 03/25/2024 Housing Stability Vital Sign Answer [place] e Recorded In the last 12 months, was t here a time when you were not able to pay the mortgage or rent on time? No 03/25/2024 In the last 12 months, how many places have you lived? 1 03/25/2024 In the last 12 months, was t here a time when you did not have a steady place to sleep or slept in a half-way (including now)? No 03/25/2024 Personal Safety Answer Date Recorded Have you ever been in or are you currently in a harmful physical or emotional relationship or is someone making you feel afraid or unsafe? Denies 03/24/2024 Education Answer Date Recorded What is the highest level of school you have completed or the highest degree you have received? Some college, no degree 03/25/2024 Sex and Gender Information Value Date Recorded Sex Assigned at Not on file Legal Sex Male 2:58 PM CDT Gender Identity Male 08/11/2020 6:09 AM CDT Sexual Orientation Straight 07/15/2020 10 :56 AM CDT documented as of this encounter Functional Status * AUDIT-C Score Answer Date of Assessment Author 0 03/25/2024 2:52 PM CDT [place] Rich LCSW * Question Answer Date of Assessment Author Q1: How often do you have a drink containing alcohol? Never 03/25/2024 2:52 PM [place] Rich LCSW Q2: How many drinks containing alcohol do you have on a typical day when you are drinking? Patient does not drink 03/25/2024 2:52 PM CDT [place] Rich LCSW Q3: How often do you have six or more drinks on one occasion? Never 03/25/2024 2:52 PM CDT [place] Rich LCSW documented as of this encounter Plan of Treatment Scheduled Procedures Name Priority Associated Diagnoses Date/Ti me TRANSPLANT KIDNEY ESRD (end stage renal disease) (HCC) documented as of this encounter Procedures Procedure Name Priority Date/Time Associated Diagnosis Comments US HEMODIALYSIS ACCESS Schedule Routine, Read Routine (OP Routine) 07/11/2023 2:07 PM CDT Dependence on renal dialysis End stage renal disease (HCC) Other complication of arteriovenous dialysis fistula, initial encounter documented in this encounter Results * US Hemodialysis Access (07/11/2023 2:07 PM CDT) Anatomical Region Laterality Modality Vascular N/A Ultrasound 07/11/2023 Narrative 07/12/2023 12:22 PM CDT Am[employer]ion Job ID: [id number] Amphion Document ID: [id number] Dictated date/time: [id number] REASON FOR STUDY Thrombosed right upper arm AV fistula. The patient has a thrombosed right upper arm AV fistula which is a cephalic vein transposition. There is patency of the right axillary vein. IMPRESSION Thrombosis of the right upper arm AV fistula with patency of the right axillary vein. Job ID/Internal Job ID: [id number] Bud Moore MD [facility] PROCEDURES Final Res ult documented in this encounter Visit Diagnoses Diagnosis Dependence on renal dialysis Renal dialysis status End stage renal disease Other complication of arteriovenous dialysis fistula, initial encounter documented in this encounter Additional Health Concerns Infection Onset Date Last Indicated Resolved Time COVID: Suspected 11/09/2023 11/09/2023 11/09/2023 1:06 PM QUALITY ASSURANCE/R&D LAB TECHNICIAN COVID: Suspected 01/16/2024 01/16/2024 01/16/2024 3:33 PM QUALITY ASSURANCE/R&D LAB TECHNICIAN Rhino/Enterovirus 01/16/2024 01/16/2024 01/23/2024 3:08 AM QUALITY ASSURANCE/R&D LAB TECHNICIAN documented as of this encounter Care Teams Library Information Technician Relationship Specialty Start Date End Date Jesu Alonso MD [address] [place] [address] PCP - General 10/19/20 Brooke Lawton, RN [address] [address] Registered Nurse 09/15/18 10/30/23 Kemal Land MD [address] [facility] [address] [place] [address] Referring Physician Hematology 01/17/19 Shiv Gonsalves MD [address] [place] [address] Consulting Physician Nephrology 01/01/22 Aly Mims MD [address] [place] [address] Surgeon Vascular Surgery 03/15/22 Eleln Pickett, BREE [address] [place] [address] Referring Physician Optometry 07/25/22 Jasper Ruiz DO [address] [place] [address] Cardiology 06/24/23 documented as of this encounter
--- OUTSIDE RECORDS SUMMARY | 2023-07-11 13:30 | XMS_ITS | Encounter Summary ---
Author Organization [facility] Address [address] [place] [address] Care Team Providers Care Security Control Center Operator Name Role Phone Brooke Lawton RN Unavailable [phone] Kemal Land MD Unavailable [phone] Jesu Alonso MD Primary Care Provide r Shiv Gonsalves MD Unavailable [phone] Aly Mims MD Unavailable [phone] Ellen Pickett OD Unavailable [phone] Jasper Ruiz DO Unavailable [phone] Reason for Referral * Diagnostic Imaging (Routine) - Closed Specialty Diagnoses / Procedures Referred By Contac t Referred To Contact Diagnoses Dependence on renal dialysis End stage renal disease Other complication of arteriovenous dialysis fistula, initial encounter Procedures US Hemodialysis Access Bud Moore MD [address] [facility] [address] [address] [place] [address] Phone: tel: fax: [facility] Office Building 2 [facility] [place] [address] Referral ID Status Reason Start Date Expiration Date Visits Re quested Visits Authorized [id number] Closed 07/11/2023 08/09/2024 1 1 Reason for Visit * Auth/Cert Specialty Diagnoses / Procedures Referred By Arlyn t Referred To Contact Diagnoses ESRD on dialysis Procedures NA Referral ID Status Reason Start Date Expiration Date Visits Re quested Visits Authorized [id number] 1 1 Encounter Details Date Type Department Care Team (Latest Contact Info) Description 07/11/2023 1:30 PM CDT Hospital Encounter [facility] Office Building [address] [place] [id number] Dependence on renal dialysis; End stage renal [...] In the past 12 months has e [employer], [employer], oil, or water [employer] threatened to shut off services in your [...] How often do you attend chur or presybeterian services? More than 4 times per year 03/25/2024 Do you belong to any clubs o r organizations such as latter day groups, unions, fraternal or athletic groups, or [...] Date Recorded PHQ-2 Total Score 0 01/18/2024 [facility] of Occupat ional [facility] - Occupational Stress Questionnaire Answer Date Recorded [...] place to sleep or slept in a fci (including now)? No 03/25/2024 Personal Safety Answer [...] 07/12/2023 12:22 PM CDT Amphion Job ID: [id number] Amphion Document ID: [id number] Dictated date/time: [id number] REASON FOR STUDY Thrombosed right upper arm AV fistula. The patient has a thrombosed right upper arm AV fistula which is a cephalic vein transposition. There is patency of the right axillary vein. IMPRESSION Thrombosis of the right upper arm AV fistula with patency of the right axillary vein. Job ID/Internal Job ID: [id number] Bud Moore MD [facility] PROCEDURES Final Res ult documented in this encounter Visit Diagnoses Diagnosis Dependence on renal dialysis Renal dialysis status End stage renal disease Other complication of arteriovenous dialysis fistula, initial encounter documented in this encounter Additional Health Concerns Infection Onset Date Last Indicated Resolved Time COVID: Suspected 11/09/2023 11/09/2023 11/09/2023 1:06 PM BROOMCORN SEEDER COVID: Suspected 01/16/2024 01/16/2024 01/16/2024 3:33 PM BROOMCORN SEEDER Rhino/Enterovirus 01/16/2024 01/16/2024 01/23/2024 3:08 AM BROOMCORN SEEDER documented as of this encounter Care Teams Security Control Center Operator Relationship Specialty Start Date End Date Jesu Alonso MD [address] [place] [address] PCP - General 10/19/20 Brooke Lawton, RN [address] [address] Registered Nurse 09/15/18 10/30/23 Kemal Land MD [address] [facility] [address] [place] [address] Referring Physician Hematology 01/17/19 Shiv Gonsalves MD [address] [place] [address] Consulting Physician Nephrology 01/01/22 Aly Mims MD [address] [place] [address] Surgeon Vascular Surgery 03/15/22 Ellen Pickett, BREE [address] [place] [address] Referring Physician Optometry 07/25/22 Jasper Ruiz DO [address] [place] [address] Cardiology 06/24/23 documented as of this encounter
[2025-08-10] VITALS (13 sets, daily range): BP systolic 160–190; BP diastolic 99–108; PULSE 69–81; RESP 14–27; TEMP 36.6; O2SAT 95–100
--- NOTE | ~2025-08-10 | XR_ITS ---
EXAMINATION: XR chest 1V portable 08/10/2025 14:01 INDICATION: Fever PROCEDURE: AP portable chest COMPARISON: Comparison to multiple prior studies sequentially, with oldest reviewed study dated 01/20/2018. FINDINGS: The lungs are clear. The cardiomediastinal silhouette is within normal limits. There are no pleural effusions. There is no pneumothorax suspected. There is a right-sided portacatheter, tip in the SVC. IMPRESSION: 1: NO ACUTE CARDIOPULMONARY DISEASE. Reviewed, dictated and finalized at location O.
--- NOTE | ~2025-08-10 | CT_ITS ---
EXAMINATION: CT abdomen pelvis w con DATE: 08/10/2025 16:18 INDICATION: Right lower quadrant abdominal pain TECHNIQUE: Computed tomography (CT) of the abdomen and pelvis was performed with 100 mL Omnipaque-350 intravenous contrast. Automated exposure control and iterative reconstruction technique were employed. The dose-length product was 1616.99 mGy-cm. COMPARISON: 10/18/2021 FINDINGS: Mild discoid atelectasis in the left lower lobe. Heart size is normal. No pericardial or pleural effusion. Liver, gallbladder, spleen, pancreas and bilateral adrenal glands are normal. Moderate bilateral renal atrophy and multiple bilateral renal cysts the largest on the left measuring up to 2.8 cm. There are also several nonobstructing bilateral renal stones with 4 stones in the right kidney measuring up to 5 mm and 3 stones in the left kidney measuring up to 7 mm. Right pelvic transplant kidney with mild enhancement at the renal pelvis which suggests possible ascending urinary tract infection. There is extensive diverticulosis throughout the colon without adjacent from trace stranding to suggest diverticulitis. No bowel obstruction. Bladder is normal. Trace amount of free fluid in the deep pelvis. Small fat-containing umbilical hernia. No pathologically enlarged abdominal or pelvic lymphadenopathy. Moderate lower thoracic and mild to moderate lumbar spondylosis. IMPRESSION: 1. Mild urothelial enhancement at the renal pelvis of a right pelvic transplant kidney. Correlate with urinalysis to assess for potential ascending urinary tract infection. 2. Moderate bilateral renal atrophy with multiple renal cysts and nonobstructing bilateral nephrolithiasis. 3. Extensive colonic diverticulosis. Reviewed, dictated and finalized at location A. IMPRESSION: 1. Mild urothelial enhancement at the renal pelvis of a right pelvic transplant kidney. Correlate with urinalysis to assess for potential ascending urinary tr act infection. 2. Moderate bilateral renal atrophy with multiple renal cysts and nonobstructin g bilateral nephrolithiasis. 3. Extensive colonic diverticulosis.
--- OUTSIDE RECORDS SUMMARY | 2025-08-10 12:53 | XMS_ITS | Encounter Summary ---
Author Organization [facility] Address [address] [place] [address] Care Team Providers Care Stereo Map Plotter Operator Name Role Phone Jesu Alonso MD Primary Care Provider [phone] Encounter Details Date Type Department Care Team (Late st Contact Info) Description 02/01/1999 Outpatient Historical [facility] [address] [facility] [address] [place] [phone] [place] [address] [facility] [address] [place] [address] Social History Tobacco Use Types Packs/Day Years Used Date Smoking Tobacco: Never Assessed Sex and Gender Information Value Date Recorded Sex Assigned at Male 09/18/2024 12:16 PM CDT Legal Sex Male 3:26 AM VERSE WRITER Gender Identity Male 09/18/2024 12:16 PM CDT Sexual Orientation Straight 04/26/2025 10 :00 AM CDT documented as of this encounter Plan of Treatment Upcoming Encounters Date Type Department Care Team (Late st Contact Info) Description 09/15/2025 8:30 AM CDT Office Visit [facility] Oncology and Hematology - [place] [address] [facility] [address] [address] Kemal Land MD [address] [facility] [address] [place] [address] documented as of this encounter Visit Diagnoses Not on filedocumented in this encounter Care Teams Stereo Map Plotter Operator Relationship Specialty Start Date End Date Jesu Alonso MD [address] [facility] [place] [address] PCP - General Internal Medicine 11/24/19 documented as of this encounter
--- OUTSIDE RECORDS SUMMARY | 2025-08-10 12:53 | XMS_ITS ---
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 b.i.d. in the setting of infection. - continue Bactrim, valganciclovir prophylaxis. - continue sodium bicarb 650 mg b.i.d. - transplant nephrology follow-up Dyslipidemia 11/25/2023 Assessment & Plan (03/25/2024 6:47 AM CDT): -Atorvastatin 40 mg Perinephric fluid collection 11/19/2023 Localized edema 11/19/2023 Kidney replaced by transplant 11/19/2023 Encounter for long-term (cur rent) use of high-risk medication 11/19/2023 Urine leak in renal parenchyma after kidney castro splant 11/19/2023 Fever, unspecified fever cause 11/09/2023 Delayed renal graft function 10/31/2023 AV fistula thrombosis, initial encounter 023 ESRD (end stage renal disease) on dialysis 07/11 Assessment & Plan (10/06/2023 12:37 PM KETTLE FRY COOK OPERATOR): Impression: He is status post thrombectomy of right upper extremity AV graft. Suture remains intact to the right antecubital fossa no concern for infection. Audible bruit and palpable thrill noted on exam. Patient denies any issues during dialysis. Plan: Sutures removed at bedside. -continue utilizing right upper extremity AV graft for dialysis as per Nephrology. 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 Recommend continued follow-up with his established vascular surgeon. Assessment & Plan (09/19/2023 1:59 PM CDT): Impression: Patient was found to have no bruit or thrill to a right upper extremity AV graft during dialysis today. Patient was last dialyzed on Friday without any complications. Potassium today was 4.8. Patient denies eating or drinking today. Av duplex reveals a thrombosed graft. Plan: Recommend thrombectomy right upper extremity AV graft, possible revision, possible Perma catheter insertion. Risks of the procedure communicate with the patient with full understanding. Patient wishes to proceed. Assessment & Plan (08/12/2023 1:38 PM CDT): Risks benefits alternatives to catheter removal discussed. He wished to proceed. See procedure note. ESRF (end stage renal failure) 07/11/2023 Hyperkalemia 01/06/2023 Interstitial keratitis of left eye 07/25/2022 Assessment & Plan (07/25/2022 9:18 AM CDT): Patient reports seen at [facility] 2018 and prescribed drops OS for cornea infection. Lesions appear inactive. Patient has documented negative RPR within the last year. May be associated with patients significant light sensitivity. Consider referral to cornea for evaluation. Hypertensive retinopathy of both eyes 07/25/2022 Assessment & Plan (07/25/2022 12:40 PM CDT): Pt with history of HUS, ESRD and previously with episodes of severe htn per report. Now very well controlled medically. Vessels appear attenuated and slightly sclerotic OU. Angiography demonstrates some patchy areas of non perfusion in the far periphery of the left eye. However there is no active macular non perfusion or evidence for artery occlusion or vasculitis. I recommend observation at this time Chest pain 03/12/2022 Assessment & Plan (03/14/2022 9:30 AM CDT): - Patient with chest pain intraop for fistulogram - EKG unremarkable - Trop unremarkable - Cardiology consulted: -Coronary CTA shows mild non obstructive coronary disease. Given lack of flow limiting disease, his chest pain is likely not from large epicardial coronary obstruction and he would not benefit from further testing at this time. - Pro BNP 1152 -ASA started this admission (03/14) Anemia in chronic kidney disease 12/14/2021 Chronic ischemic heart disease, unspecified 11/18 Neuropathy 12/09/2021 Assessment & Plan (12/11/2021 3:50 PM KETTLE FRY COOK OPERATOR): Patient complaining of neuropathy of bilateral feet and right hand. This is likely secondary to ESRD - AVERY +1:160. HIV/RF/HIV/B12/folate wnl. - continue gabapentin, cymbalta Assessment & Plan (12/10/2021 11:54 AM KETTLE FRY COOK OPERATOR): Patient complaining of neuropathy of bilateral feet and right hand. This is likely secondary to ESRD - AVERY +1:160. HIV/RF/HIV/B12/folate wnl. - continue gabapentin 100 mg BID Assessment & Plan (12/09/2021 7:18 AM KETTLE FRY COOK OPERATOR): Patient complaining of neuropathy of bilateral feet and right hand. This is likely secondary to ESRD - AVERY pending. HIV/RF/HIV/B12/folate wnl. - continue gabapentin 100 mg BID Subcutaneous nodules 12/09/2021 Assessment & Plan (12/11/2021 3:52 PM KETTLE FRY COOK OPERATOR): Patient reports subcutaneous nodules on abdomen. Unclear etiology, ?ESRD. - Dermatology referral a discharge Assessment & Plan (12/10/2021 11:54 AM KETTLE FRY COOK OPERATOR): Patient reports subcutaneous nodules on abdomen. Unclear etiology, ?ESRD. - Dermatology referral a discharge Assessment & Plan (12/09/2021 7:19 AM KETTLE FRY COOK OPERATOR): Patient reports subcutaneous nodules on abdomen. Unclear etiology, ?ESRD. - Dermatology referral a discharge Leg weakness, bilateral 11/29/2021 Abnormal MRI, spine 08/17/2020 Assessment & Plan (08/22/2020 12:57 PM CDT): - Reviewed lab results with pt, ID workup overall negative. Cocci complement 1:2, discussed with Dr. Varela and not likely to be clinically significant given other test results. Still awaiting final mycobacterial cx results from 08/01/20. 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 - START Vancomycin 2g three times a week after dialysis. - START Cefepime 2g-2g-3g after dialysis. - START Bi-weekly CMP, weekly CBC, bi-weekly Vanc level before dialysis. Pt will be on Vanc dialysis protocol. - Discussed with patient the rational for treatment, culture results, risk of recurrent infection, signs/symptoms of recurrent infection, and to contact ID clinic with any questions or concerns. - Vancomycin can cause renal impairment, neutropenia, eosinophilia, DRESS, ototoxicity, and thrombocytopenia. Due to the side effects, CBC and BMP should be monitored weekly while on vancomycin. - Cefepime may be associated with allergic reactions, diarrhea, but is overall well tolerated. Rarely, may be associated with convulsions, encephalopathy, myoclonus, confusion, hallucinations, neutropenia, thrombocytopenia, hepatitis, hemolytic anemia, agranulocytosis. Therefore, CBC and CMP should be checked weekly while on this medication. Assessment & Plan (08/17/2020 8:47 AM CDT): -Pt noted to have c/f osteomyelitis on MRI of spine, now s/p IR biopsy, NGTD, pathology reveals normal bone marrow elements and no evidence of acute inflammation. -Upon review of lab work, extensive history, and imaging results, it is unlikely, however not conclusive, that pt's symptoms are related to traditional infection. Given his status on the transplant list, would pursue full ID workup, and will likely pursue treatment for Cx negative osteomyelitis. -As pt is currently doing 4x/week home dialysis, he and mother will look into what dialysis center could be used during the 6 weeks of IV abx for 3x/in center dialysis and abx therapy. -Labs ordered today: Bartonella antibody panel, Blasto antibodies, Cocci antibodies, Histo antibody/antigen blood (as pt does not make urine), Q fever. -Will await final results of AFB and fungal Cx from IR biopsy. -Pending negative test results, will plan on treatment for culture negative spinal osteomyelitis with Vanc 3x week after dialysis, and Cefepime 2g-2g-3g after dialysis. - Discussed with patient the rational for treatment, culture results, risk of recurrent infection, signs/symptoms of recurrent infection, and to contact ID clinic with any questions or concerns. 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 Attending reported that pt has transitional lumbar anatomy, imaging was used during biopsy to confirm location. Neuropathy of hand, right 07/19/2020 Assessment & Plan (12/11/2021 3:50 PM KETTLE FRY COOK OPERATOR): - Continue home gabapentin. Assessment & Plan (12/10/2021 11:53 AM KETTLE FRY COOK OPERATOR): - Continue home gabapentin. Assessment & Plan (12/07/2021 1:07 PM KETTLE FRY COOK OPERATOR): Continue home gabapentin. Assessment & Plan (12/05/2021 6:07 PM KETTLE FRY COOK OPERATOR): Continue home gabapentin. Assessment & Plan (07/19/2020 7:37 AM CDT): > new onset progressive numbness and weakness of the RUE beginning distally in the radial distribution and progressing up the arm over 2-3 hours with onset of cold RUE following evolution of AV fistula > pulses intact to signal with palmar arch RUE, temperature symmetric, minimal residual neurological sx improving since presentation - c/f steal from evolving fistula - formal fistula US today - q2 NV checks - NPO until fistula status fully elucidated - holding mIVF given plan for possible HD with nephrology today, will discuss with nephrology Optic neuropathy, bilateral 06/15/2020 Assessment & Plan (07/25/2022 12:41 PM CDT): Previously seen by Dr. Chapa with possibly optic neuropathy vs. Low- tension glaucoma vs. Stroke associated vision loss. Plan previously was for MRI brain/orbits which patient was unable to obtain due to hospitalization. Patient underwent CT hear 11/29/21 which was normal per report. He has noticed recent vision loss in the left eye especially. Will repeat the Anthony visual field size 5 test and see if there has been interval changes. Depending on the results of this test will recommend evaluation with Dr. Chapa. Visual field testing of the left eye was essentially unchanged, however in the right eye he now has a inferonasal visual field defect. Recommend evaluation with Dr. Chapa to help us decipher if optic neuropathy versus cortical changes are part of his visual complaints. ESRD (end stage renal disease) 01/06/2019 Assessment & Plan (07/11/2023 2:23 PM CDT): Impression: Patient has a right brachial axillary AV fistula being utilized for dialysis. Patient was found to have no bruit or thrill during today's dialysis session. Av duplex reveals a thrombosed fistula. Patient reports he has had multiple failed interventions to his left upper extremity AV graft. Potassium today is Plan: Assessment & Plan (03/15/2022 12:31 PM CDT): - Patient presented on 03/12 for fistula gram, found stenosis but no intervention 2/2 chest pain intra op (see other problem) - HD at [facility] through [facility] - Nephrology consult for inpatient HD - 03/15: to OR for fistulogram - HD today with discharge plans Assessment & Plan (12/11/2021 3:49 PM KETTLE FRY COOK OPERATOR): Receiving HD TTS via AVF, having problems with his current facilty and does not want to go back for HD there. Nephrology consulted and recommended outpatient dialysis however due to issue with current facility admitted for HD inpatient until new facility found. Renal SW following. - Nephology consulted, [facility] - stopped sevelamer per renal recs - new outpt HD placement in progress via [facility], with unknown timeframe for completion. Per renal SW, [facility] is still able to accommodate pt's HD until new placement is obtained. Pt and family agreeable to continued HD at [facility] until new placement found. Assessment & Plan (12/10/2021 11:54 AM KETTLE FRY COOK OPERATOR): Receiving HD TTS via [facility], having problems with his current facilty and does not want to go back for HD there. Nephrology consulted and recommended outpatient dialysis however due to issue with current facility admitted for HD inpatient until new facility found. Renal SW following. - Nephology consulted, [facility]. Pending new dialysis facility - stopped sevelamer per renal recs Assessment & Plan (12/09/2021 7:21 AM KETTLE FRY COOK OPERATOR): Receiving HD TTS via [facility], having problems with his current facilty and does not want to go back for HD there. Nephrology consulted and recommended outpatient dialysis however due to issue with current facility admitted for HD inpatient until new facility found. Renal SW following. - Nephology consulted, [facility]. Pending new dialysis facility - Continue home sevelamer Assessment & Plan (12/08/2021 3:21 PM KETTLE FRY COOK OPERATOR): Receiving HD TTS via [facility], having problems with his current facilty and does not want to go back for HD there. Nephrology consulted and recommended outpatient dialysis however due to issue with current facility admitted for HD inpatient until new facility found. Renal SW following. - Nephology consulted, [facility]. Pending new dialysis facility - Continue home sevelamer Assessment & Plan (12/07/2021 1:29 PM KETTLE FRY COOK OPERATOR): Receiving HD TTS via [facility], having problems with his current facilty and does not want to go back for HD there. Nephrology consulted and recommended outpatient dialysis however due to issue with current facility admitted for HD tomorrow and plan for dischage after - Nephology consulted, [facility] - Continue home sevelamer Assessment & Plan (12/06/2021 4:05 PM KETTLE FRY COOK OPERATOR): Receiving HD TTS via [facility], having problems with his current facilty and does not want to go back for HD there. Nephrology consulted and recommended outpatient dialysis however due to issue with current facility admitted for HD tomorrow and plan for dischage after - Nephology consulted, HD today - Continue home sevelamer Assessment & Plan (07/19/2020 7:39 AM CDT): > dialysis access through right upper chest tunneled line, MWF HD at home, did not receive M dialysis - consult to nephrology for management of dialysis - holding home lasix 80 PO BID until renal consult - daily BMP - home phos binder Hyperparathyroidism, tertiary ([facility]) 05/28/20 18 Assessment & Plan (08/25/2018 10:35 AM CDT): Check PTH, Serum Ca Adjust dose of Sensipar , accordingly Assessment & Plan (05/28/2018 3:46 PM CDT): Hypercalcemia, probably related to tertiary hyperparathyroidism. I am going to go ahead and request a repeat BMP with serum levels, PTH and 25 hydroxy vitamin-D Depending on results, should the patient be hypercalcemic with high PTH will start on Sensipar. Depending on serum calcium levels will request some further workup for other causes of hypercalcemia Hypercalcemia 05/28/2018 Assessment & Plan (08/25/2018 10:35 AM CDT): Related to tertiary hyperparathyroidism. 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 05/07/2018 Assessment & Plan (03/14/2022 9:31 AM CDT): - Dx in 2018 patient on warfarin at home (held x3 days preoperatively for fistulogram) - Continue to hold AC - Heparin sub Q for DVT prophylaxis - BLE venous duplex ordered Assessment & Plan (12/11/2021 3:50 PM KETTLE FRY COOK OPERATOR): - On warfarin for DVT, continue warfarin 9 mg daily - Recent LE duplex 11/30/2020 without evidence of DVT - Daily INR, goal 2-3 Assessment & Plan (12/10/2021 11:51 AM KETTLE FRY COOK OPERATOR): - On warfarin for DVT, continue warfarin 9 mg daily - Recent LE duplex 11/30/2020 without evidence of DVT - Daily INR, goal 2-3 Assessment & Plan (12/09/2021 7:22 AM KETTLE FRY COOK OPERATOR): - On warfarin for DVT, continue warfarin 9 mg daily - Recent LE duplex 11/30/2020 without evidence of DVT - Daily INR, goal 2-3. Currently 2.6 (12/09) Assessment & Plan (12/08/2021 3:21 PM KETTLE FRY COOK OPERATOR): - On warfarin for DVT, continue warfarin 9 mg daily - Recent LE duplex 11/30/2020 without evidence of DVT - Daily INR, goal 2-3. Currently 2.9 Assessment & Plan (12/07/2021 1:29 PM KETTLE FRY COOK OPERATOR): - On warfarin for DVT, continue warfarin 9 mg daily - Recent LE duplex 11/30/2020 without evidence of DVT - Daily INR, goal 2-3. Currently 2.8 Assessment & Plan (12/06/2021 4:05 PM KETTLE FRY COOK OPERATOR): - On warfarin for DVT, continue warfarin 9 mg daily - Recent LE duplex 11/30/2020 without evidence of DVT - Daily INR, goal 2-3. Currently 2.8 Assessment & Plan (07/19/2020 7:45 AM CDT): > notes associated baseline distal pedal neuropathy at present, relieved by dependence of BLE, sensorimotor intact - holding home warfarin, INR currently 2.8 - will start heparin gtt prn for subtherapeutic INR Renal osteodystrophy 01/02/2018 Assessment & Plan (12/11/2021 3:50 PM KETTLE FRY COOK OPERATOR): - Vit D and PTH per outpatient HD unit. - cont home medications. Assessment & Plan (12/10/2021 11:52 AM KETTLE FRY COOK OPERATOR): - Vit D and PTH per outpatient HD unit. - cont home medications. Assessment & Plan (12/08/2021 3:19 PM KETTLE FRY COOK OPERATOR): - Vit D and PTH per outpatient HD unit. - Calcium normal. - Resume home medications. Assessment & Plan (12/07/2021 1:07 PM KETTLE FRY COOK OPERATOR): - Vit D and PTH per outpatient HD unit. - Calcium normal. - Resume home medications. Assessment & Plan (12/05/2021 6:05 PM KETTLE FRY COOK OPERATOR): - Vit D and PTH per outpatient HD unit. - Calcium normal. - Resume home medications. Assessment & Plan (07/19/2020 7:19 AM CDT): - home calcitriol Essential (primary) hypertension 01/02/2018 Assessment & Plan (03/25/2024 6:44 AM CDT): - Resume home dose coreg 6.25mg BID Assessment & Plan (03/22/2024 10:27 PM CDT): - hold home coreg Assessment & Plan (03/12/2022 12:17 PM CDT): - VS Q 4 hrs and PRN - Continue home metoprolol Assessment & Plan (12/11/2021 3:50 PM KETTLE FRY COOK OPERATOR): BP above goal - started lisinopril 10 mg daily - cont home metop Assessment & Plan (12/10/2021 11:53 AM KETTLE FRY COOK OPERATOR): BP above goal - started lisinopril 10 mg daily - cont home metop Assessment & Plan (12/09/2021 7:20 AM KETTLE FRY COOK OPERATOR): Continue metoprolol 100 mg BID. Blood pressure elevated. - starting lisinopril 10 mg daily Assessment & Plan (12/08/2021 3:20 PM KETTLE FRY COOK OPERATOR): Continue metoprolol 100 mg BID. Blood pressure elevated. - starting lisinopril 10 mg daily Assessment & Plan (12/07/2021 1:27 PM KETTLE FRY COOK OPERATOR): Continue metoprolol 100 mg BID. Blood pressure elevated. - consider adding ACEi/ARB Assessment & Plan (12/05/2021 6:05 PM KETTLE FRY COOK OPERATOR): Continue metoprolol 100 mg BID. Assessment & Plan (07/19/2020 7:20 AM CDT): - holding home lisinopril, continuing home metoprolol Morbid obesity with body mass index of 40.0-49.9 01/01/2018 Assessment & Plan (12/11/2021 3:50 PM KETTLE FRY COOK OPERATOR): Educated on need for weight loss. Assessment & Plan (12/05/2021 6:06 PM KETTLE FRY COOK OPERATOR): Educated on need for weight loss. 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 Assessment & Plan (03/22/2024 10:27 PM CDT): On Ultomiris every 2 months outpatient. Assessment & Plan (12/11/2021 3:49 PM KETTLE FRY COOK OPERATOR): Chronic history and follows without patient hematology. - Currently on immunotherapy Assessment & Plan (12/10/2021 11:51 AM KETTLE FRY COOK OPERATOR): Chronic history and follows without patient hematology. - Currently on immunotherapy Assessment & Plan (12/09/2021 7:20 AM KETTLE FRY COOK OPERATOR): Chronic history and follows without patient hematology. Currently on immunotherapy Assessment & Plan (12/07/2021 1:07 PM KETTLE FRY COOK OPERATOR): Chronic history and follows without patient hematology. Currently on immunotherapy Assessment & Plan (12/05/2021 5:59 PM KETTLE FRY COOK OPERATOR): Chronic history and follows without patient hematology Currently on immunotherapy Assessment & Plan (07/19/2020 7:20 AM CDT): - home TMP-SMX given immunosuppression related to AHUS - receives q8wks ravulizumab Immunizations Immunization Administration Dates Next Due Influenza, Quadrivalent, Rec ombinant, Egg Free, Preservative Free, Intramuscular 08/29/2023 Influenza, Quadrivalent, Spl it, Preservative Free, Intramuscular 08/19/2022,01/24/2020 Influenza, Unspecified 08/29/2023,08/17/2021 Td (J&J) SARS-CoV-2 Vaccination 01/20/2021 Meningococcal A,C,W,Y-TT (Aka Menquadfi) 024 Meningococcal ACWY, Unspecified 09/15/2017 Meningococcal B, OMV (Bexsero) 05/13/2025,2017,02/10/2018 Meningococcal MCV4P (Menactra) 02/10/2018 Pfizer SARS-CoV-2 Monovalent Vaccination (12+ Yrs) PURPLE 07/19/2022 Social History Tobacco Use Types Packs/Day Years Used Date Smoking Tobacco: Never Smokeless Tobacco: Never Tobacco Cessation:Counseling Given: Not Answered Alcohol Use Standard Drinks/Week Comments No 0 [...] materials from doctor or pharmacy Never 02/09/2024 [facility] Utilities Answer Date Recorded In the past 12 months has th e electric, gas, oil, or water company threatened to shut off services in your home? No 03/25/2024 Social Connection and Isolation Panel Answer Date Recorded In a typical week, how many times do you talk on the phone with family, friends, or neighbors? Three times a week 03/25/2024 How often do you get togethe r with friends or relatives? Three times a week 03/25/2024 How often do you attend chur ch or sikh services? More than 4 times per year 03/25/2024 Do you belong to any clubs o r organizations such as christian groups, unions, fraternal or athletic groups, or [...] Date Recorded PHQ-2 Total Score 0 01/18/2024 [facility] Occupat ional Health - Occupational Stress Questionnaire Answer Date Recorded [...] place to sleep or slept in a retirement (including now)? No 03/25/2024 Personal Safety Answer [...] Orientation Straight 07/15/2020 10 :56 AM CDT Last Filed Vital Signs Vital Sign Reading Time Taken Comments Blood Pressure 149/88 02/02/2025 10:00 AM CDT Pulse 74 02/02/2025 10:00 AM CDT Temperature 36.8 C (98.3 F) 02/02/2025 10:00 AM CDT Respiratory Rate 18 03/26/2024 7:46 AM CDT Oxygen Saturation 98% 03/26/2024 7:46 AM CDT Inhaled Oxygen Concentration - - Weight 142.9 kg (315 lb) 06/16/2025 2:40 PM CDT Height 185.4 cm (6' 1) 06/16/2025 2:40 PM CDT Body Mass Index 41.56 06/16/2025 2:40 PM CDT Functional Status * Are you deaf or do you have serious difficulty hearing? Answer Date of Assessment Author No 03/25/2024 2:44 PM CDT Carolina Rich LCSW * Are you blind or do you have serious difficulty seeing, even when wearing glasses? Answer Date of Assessment Author No 03/25/2024 2:44 PM CDT Carolina Rich LCSW * Do you have serious difficulty walking or climbing stairs? Answer Date of Assessment Author No 03/25/2024 2:44 PM CDT Carolina Rich LCSW * Do you have serious difficulty dressing or bathing? Answer Date of Assessment Author No 03/25/2024 2:44 PM CDT Carolina Rich LCSW * Because of a physical, mental, or emotional condition, do you have serious difficulty doing errandsalone such as visiting the doctor? Answer Date of Assessment Author Yes 03/25/2024 2:44 PM CDT Carolina Rich LCSW Mental Status * Because of a physical, mental, or emotional condition, do you have serious difficulty concentrating, remembering, or making decisions? (5 years old or older) Answer Entry Date Author Yes 03/25/2024 2:44 PM CDT Carolina Rich LCSW Results * PORTABLE/HOME SLEEP STUDY (07/13/2025 10:00 PM CDT) Narrative Fuad Marmolejo MD - 07/13/2025 10:00 PM CDT Fuad Marmolejo MD 07/29/2025 10:02 PM Portable/Home Sleep Study Date/Time: 07/13/2025 10:00 PM Performed by: Fuad Marmolejo MD Authorized by: Kaylee Peterson PA [facility] ORDER SEN Final Result * Allosure kidney donor-derived cell-free DNA (cFDNA) (07/06/2025 6:15 PM CDT) Allosure CFDNA 0.49% [facility] Comment: INTERPRETATION OF ALLOSURE KIDNEY RESULTS AlloSure measures the percent of donor-derived cell-free DNA (dd-cfDNA) in the total cell-free DNA present in kidney transplant recipients.(1),(2) AlloSure Relative Change Value (RCV) represents the percentage change from previous AlloSure Result.(4),(5) When interpreting AlloSure Result: >=1.0% dd-cfDNA is associated with a higher probability of active rejection compared to scores less than 1.0%.(2),(3) 0.21% dd-cfDNA is the median observed in a reference population of stable recipients.(4) When interpreting AlloSure RCV:* >61% increase in AlloSure Result from prior result exceeds the biological variability observed in the reference population.(4) >=149% increase in AlloSure Result from prior result may indicate a high likelihood of allograft injury.(5) NR - No Result, US - Unacceptable Sample, N/A - RCV is not calculated due to AlloSure Result below 0.20%. *The RCV threshold for Simultaneous Pancreas-Kidney (SPK) has not been established. Clinical validity of the AlloSure test was established in kidney transplant recipients who were at least 14 days post-transplant. AlloSure should be interpreted in the context of clinical findings and relevant patient history. For more information about AlloSure, please visit [email or web address]. Specimens from kidney retransplant recipients in whom the prior kidney allograft(s) remain in situ and from SPK recipients(6),(7) are acceptable for testing. AlloSure is not intended for use in kidney transplant recipients who are , recipients of a transplant from a monozygotic twin, recipients of allogenic bone marrow transplant, or the recipients of multiple transplanted organs other than simultaneous pancreas-kidney transplant. Transfusion of blood components containing white blood cells in the 30 days prior to blood draw may lead to aberrant result. Renal biopsies performed in the 24 hours prior to AlloSure specimen collection may elevate dd-cfDNA. (1)Surendra et al., J Mol Diagn 2016; (2)Jimi et al., J Am Soc Nephrol 2017; (3)Jaleel et al., Pediatric Transplantation 2019; (4)Ariella et al., J Appl Lab Med 2017; (5)Arsen et al., Kidney International 2020;(6) Kang et al.,Transplantation Direct 2021; (7)Hansel et al., Transplantation Direct 2022 The AlloSure donor-derived cell-free DNA test was developed and its performance characteristics were determined by the [facility]. The test has not been cleared or approved by the U.S. Food and Drug Administration, nor is it currently required to be. The laboratory is certified under the Clinical Laboratory Improvement Amendments of 1988 (CLIA '88) and accredited by the [employer] (CAP) as qualified to perform high complexity clinical laboratory testing. The contents of this report are confidential and intended solely for the use of authorized personnel. AlloSure testing performed at [facility]. [address] [place] [id number] (CLIA No: [id number], CAP No: [id number]) Service Rig Operator: Serge Rushing M.D. Plasma 07/06/2025 6:15 PM CDT us Sissy Lancaster MD LAB BLOOD ORDERABLES Final Resu lt CRYSTAL * (ABNORMAL) Tacrolimus level trough (07/06/2025 3:20 PM CDT) Tacrolimus (FK506), Blood 4.4(L) 5.0 - 20.0 ng/mL [facility] - 01 Comment: Target steady state trough concentration for Tacrolimus varies based on type of organ transplant immunosuppressive protocol and other patient specific factors. Tacrolimus trough concentrations should be interpreted in conjunction with clinical assessments of rejection and tolerability. Values obtained with different assay methods cannot be used interchangeably due to differences in assay methods and cross-reactivty with metabolites, nor should correction factors be applied. Therefore, consistent use of one assay for individual patients is recommended. Detection Limit = 0.5 ng/mL Performed by LC-MS/MS technology. Blood 07/06/2025 3:20 PM CDT 07/06/2025 Narrative [facility] - 07/11/2025 4:11 PM CDT Test(s) [id number] (FK506), Blood was developed and its performance characteristics determined by [facility]. It has not been cleared or approved by the Food and Drug Administration. Performed at: [address] [id number] Service Rig Operator: Haider Carter MD, Phone: [phone] Sissy Lancaster MD LAB BLOOD ORDERABLES Final Resu lt Performing Organization Address [facility] Co de Phone Number [facility] - * (ABNORMAL) Tacrolimus level trough (06/22/2025 3:55 PM CDT) [facility] Tacrolimus (FK506), Blood 2.4(L) 5.0 - 20.0 ng/mL [facility] - Comment: Target steady state trough concentration for Tacrolimus varies based on type of organ transplant immunosuppressive protocol and other patient specific factors. Tacrolimus trough concentrations should be interpreted in conjunction with clinical assessments of rejection and tolerability. Values obtained with different assay methods cannot be used interchangeably due to differences in assay methods and cross-reactivty with metabolites, nor should correction factors be applied. Therefore, consistent use of one assay for individual patients is recommended. Detection Limit = 0.5 ng/mL Performed by LC-MS/MS technology. Blood 06/22/2025 3:55 PM CDT 06/22/2025 Narrative [facility] - 06/25/2025 4:10 PM CDT Test(s) [id number] (FK506), Blood was developed and its performance characteristics determined by [facility]. It has not been cleared or approved by the Food and Drug Administration. Performed at: [address] [id number] Service Rig Operator: Haider Carter MD, Phone: [phone] Sissy Lancaster MD LAB BLOOD ORDERABLES Final Resu lt Performing Organization Address [facility] Co de Phone Number [facility] - 01 * CBC with auto differential (06/22/2025 3:55 PM CDT) [facility] WBC 5.7 3.4 - 10.8 x10E3/uL [facility] - 01 RBC 4.55 4.14 - 5.80 x10E6/uL [facility] - 01 Hgb 13.5 13.0 - 17.7 g/dL [facility] - 01 Hct 42.0 37.5 - 51.0 % [facility] - 01 MCV 92 79 - 97 fL [facility] - 01 MCH 29.7 26.6 - 33.0 pg [facility] - 01 MCHC 32.1 31.5 - 35.7 g/dL [facility] - 01 Rdw 13.7 11.6 - 15.4 % [facility] - 01 Platelets 168 150 - 450 x10E3/uL [facility] - 01 Neutrophils pct 69 Not Estab. % [facility] - 01 Lymphs pct 18 Not Estab. % [facility] - 01 Monocytes pct 9 Not Estab. % [facility] - 01 Eosinophils pct 3 Not Estab. % [facility] - 01 Basophil pct 0 Not Estab. % [facility] - 01 Neutrophil abs 3.9 1.4 - 7.0 x10E3/uL [facility] - 01 Lymphs (Absolute) 1.0 0.7 - 3.1 x10E3/uL [facility] - 01 Monocyte abs 0.5 0.1 - 0.9 x10E3/uL [facility] - 01 Eosinophils, abs 0.2 0.0 - 0.4 x10E3/uL [facility] - 01 Basophils, abs 0.0 0.0 - 0.2 x10E3/uL [facility] - 01 Immature Granulocytes 1 Not Estab. % [facility] - 01 Immature Grans (Abs) 0.1 0.0 - 0.1 x10E3/uL [facility] - 01 Blood 06/22/2025 3:55 PM CDT 06/22/2025 Narrative [facility] - 06/23/2025 5:08 AM CDT Performed at: [facility] [id number] Service Rig Operator: Deonte Villa PhD, Phone: [phone] us Sissy Lancaster MD LAB BLOOD ORDERABLES Final Resu lt Performing Organization Address [facility]/ZIP Co de Phone Number [facility] - 01 * (ABNORMAL) Hemoglobin A1c (06/22/2025 3:55 PM CDT) [facility] Hgb A1C 5.9(H) 4.8 - 5.6 % [facility] - 01 Comment: Prediabetes: 5.7 - 6.4 Diabetes: >6.4 Glycemic control for adults with diabetes: <7.0 Blood 06/22/2025 3:55 PM CDT 06/22/2025 Narrative [facility] - 06/23/2025 6:09 AM CDT Performed at: [address] [place] [id number] Service Rig Operator: Deonte Villa PhD, Phone: [phone] Sissy Lancaster MD LAB BLOOD ORDERABLES Final Resu lt Performing Organization Address [facility] Co de Phone Number [facility] - 01 * (ABNORMAL) Hepatic function panel (06/22/2025 3:55 PM CDT) [facility] Protein, sr 6.8 6.0 - 8.5 g/dL [facility] - 01 Albumin 4.1 4.1 - 5.1 g/dL [facility] - 01 Bilirubin, Total 0.4 0.0 - 1.2 mg/dL [facility] - 01 Bilirubin, direct 0.13 0.00 - 0.40 mg/dL [facility] - 01 Alk phos 144(H) 44 - 121 IU/L [facility] - 01 AST 35 0 - 40 IU/L [facility] - 01 ALT 36 0 - 44 IU/L [facility] - 01 Blood 06/22/2025 3:55 PM CDT 06/22/2025 Narrative [facility] - 06/23/2025 8:12 AM CDT Performed at: [employer] [address] [id number] Service Rig Operator: Deonte Villa PhD, Phone: [phone] us Sissy Lancaster MD LAB BLOOD ORDERABLES Final Resu lt [facility] - * (ABNORMAL) Renal function panel (06/22/2025 3:55 PM CDT) Glucose 91 70 - 99 mg/dL [facility] - 01 BUN 16 6 - 20 mg/dL [facility] - 01 Creatinine, Serum 2.04(H) 0.76 - 1.27 mg/dL [facility] - 01 eGFR 42(L) >59 mL/min/1.7 3 [facility] - 01 BUN/creat ratio 8(L) 9 - 20 [facility] - 01 Sodium 140 134 - 144 mmol/L [facility] - 01 Potassium, sr 3.8 3.5 - 5.2 mmol/L [facility] - 01 Chloride 105 96 - 106 mmol/L [facility] - 01 CO2 21 20 - 29 mmol/L [facility] - 01 Calcium 9.3 8.7 - 10.2 mg/dL [facility] - 01 Phosphorus, sr 2.3(L) 2.8 - 4.1 mg/dL [facility] - 01 Albumin 4.1 4.1 - 5.1 g/dL [facility] - 01 Blood 06/22/2025 3:55 PM CDT 06/22/2025 Narrative [facility] - 06/23/2025 8:12 AM CDT Performed at: [address] [place] [id number] Service Rig Operator: Deonte Villa PhD, Phone: [phone] us Sissy Lancaster MD LAB BLOOD ORDERABLES Final Resu lt [facility] - * (ABNORMAL) Lipid panel (06/22/2025 3:55 PM CDT) Cholesterol 128 100 - 199 mg/dL [facility] - 01 Triglycerides 161(H) 0 - 149 mg/dL [facility] - 01 HDL Cholesterol 29(L) >39 mg/dL [facility] - 01 VLDL 28 5 - 40 mg/dL [facility] - 01 LDL, calculated 71 0 - 99 mg/dL [facility] - 01 Blood 06/22/2025 3:55 PM CDT 06/22/2025 Narrative [facility] - 06/23/2025 7:09 AM CDT Performed at: 01 - [facility] [id number] Service Rig Operator: Deonte Villa PhD, Phone: [phone] us Sissy Lancaster MD LAB BLOOD ORDERABLES Final Resu lt Performing Organization Address [facility]/ZIP Co de Phone Number [facility] - 01 * HLA Donor Specific Antibody Report (06/22/2025 10:00 AM CDT) us Noni Whittington NP LAB BLOOD ORDERABLES Final R esult * HLA Antibody Screen - DSA (Class I and Class II) (06/22/2025 10:00 AM CDT) Blood 06/22/2025 10:0 0 AM CDT 06/29/2025 12:15 PM CDT Narrative [facility] - 06/29/2025 12:15 PM CDT us Noni Whittington NP LAB BLOOD ORDERABLES Final R esult Performing Organization Address [facility] Co de Phone Number [facility] * Hepatitis C antibody Blood (01/20/2024 9:20 AM KETTLE FRY COOK OPERATOR) Hep C Ab Nonreactive Nonreactive [facility] Comment:Antibodies to HCV no t detected. Does NOT exclude the possibility of recent exposure to HCV. Current interpretive data was last revised on 22 Blood 01/20/2024 9:20 AM KETTLE FRY COOK OPERATOR 01/20/2024 12:47 PM KETTLE FRY COOK OPERATOR us Soto Lehman MD PhD LAB MICROBIOLOGY - GENERAL TRACEY MEREDITH Final Result Performing Organization Address City/[facility]/ZIP Co de Phone Number [facility] [address] [facility] [place] [address] from Last 3 Months or Most Recently Relevant to Health Maintenance
--- OUTSIDE RECORDS SUMMARY | 2025-08-10 12:53 | XMS_ITS | Data Portability ---
Author Organization [facility], Main Office Address [address] [place] [address] Care Team Providers Care Balance Wheel Hand Filer Name Role Phone BIPIN BUSTILLO Primary Care Provider BIPIN BUSTILLO Referring Provider [phone] Assessment No assessment recorded. Plan of Treatment Reminders Order Date Submit Date Provider Last Modified By Organization Details Last Modified Time Details Appointments None record ed. Lab None record ed. Referral None record ed. Procedures None record ed. Surgeries None record ed. Imaging None record ed. Medication Orders None record ed. Patient TargetsNo targets recorded. Patient InstructionsNo instructions recorded. Reason for Referral None Reported. Problems Name Problem SNOMED Code Status Onset Date Resolution Date Notes Provider Name and Address Organization Details Recorded Time Impacted cerumen of bilateral ears 23491121711604 08 Active 2023 Osmani Johnson MD [address] [place] [address], [place], [address] [facility] 14:27:02 Problem Notes None recorded. Procedures Surgical History Date Name Laterality Status Provider Name and Address Organization Details Recorded Time 023 transplant of kidney completed Eve Hylton [facility] 03/04/2024 09:20:57 parathyroidectomy completed Eve Concetta, [facility] 03/04/2024 09:21:13 Imaging Results None recorded. Procedure Notes None recorded. Medical Equipment None Reported. Allergies Allergen ID Allergen Name Allergen Category Reaction Reaction Severity Criticality Documentation Date Start Date Code Code System Note Provider Name and Address Organization Details Recorded Time 41431 bacitraci n / neomycin / polymyxin B medicatio n Not available Not available Not available 01/15/2023 42205 9 RxNorm Not Available [facility] 3 19:30:14 20674 hydrocodo ne Not available Not available Not available Not available 01/15/2023 5489 RxNorm SOB Not Available [facility] 3 19:30:14 Medications Name Sig Start Date Stop Date Status Note LastModified by Organization Details LastModified Time amoxicillin 500 mg capsule active Not Available Not Available Not Available latanoprost 0.005 % eye drops INSTILL 1 DROP INTO BOTH EYES AT BEDTIME active Not Available Not Available No t Available atorvastati n 40 mg tablet active Not Available Not Available Not Available valganciclo vir 450 mg tablet active Not Available Not Available Not Available nystatin 100,000 unit/mL oral suspension 1 ML ORALLY FOUR TIMES DAILY SWISH AND SWALLOW active Not Available Not Available No t Available carvedilol 6.25 mg tablet active Not Available Not Available Not Available carvedilol 12.5 mg tablet TAKE 1 TABLET BY MOUTH EVERY DAY active Not Available Not Available No t Available atorvastati n 10 mg tablet TAKE 1/2 TABLET BY MOUTH EVERY DAY active Not Available Not Available No t Available azithromyci n 250 mg tablet active Not Available Not Available Not Available metoprolol tartrate 100 mg tablet TAKE 1 TABLET BY MOUTH TWICE A DAY active Not Available Not Available No t Available hydrocodone 5 mg-acetamin ophen 325 mg tablet active Not Available Not Available No t Available warfarin 10 mg tablet active Not Available Not Available No t Available prochlorper azine maleate 5 mg tablet TAKE 1 TABLET BY MOUTH EVERY 6 HOURS NEEDED FOR NAUSEA OR VOMITING. active Not Available Not Available No t Available ondansetron HCl 4 mg tablet TAKE 1 TABLET BY MOUTH TWICE A DAY active Not Available Not Available No t Available Maxidex 0.1 % eye drops,suspe nsion INSTILL 1 DROP INTO LEFT EYE 4 TIMES A DAY DIRECTED active Not Available Not Available No t Available prednisone 5 mg tablet active Not Available Not Available Not Available ciprofloxac in 500 mg tablet 04/01 completed Not Available Not Available Not Available sulfamethox azole 800 mg-trimetho prim 160 mg tablet TAKE 1 TABLET BY MOUTH TWICE A DAY FOR 7 DAYS active Not Available Not Available No t Available omeprazole 40 mg capsule,del ayed release TAKE 1 CAPSULE BY MOUTH EVERY DAY active Not Available Not Available No t Available tramadol 50 mg tablet TAKE 1 TABLET BY MOUTH EVERY 12 HOURS NEEDED FOR PAIN. active Not Available Not Available No t Available ondansetron 8 mg disintegrat ing tablet active Not Available Not Available N ot Available warfarin 4 mg tablet TAKE 1 TABLET BY MOUTH EVERY DAY active Not Available Not Available No t Available trifluridin e 1 % eye drops INSTILL ONE DROP INTO RIGHT EYE 5 TIMES PER DAY active Not Available Not Available No t Available oxycodone-a cetaminophe n 5 mg-325 mg tablet TAKE 1 TABLET BY MOUTH EVERY 4 HOURS NEEDED FOR PAIN (MAX 6 TABS/DAY) active Not Available Not Available No t Available warfarin 6 mg tablet active Not Available Not Available No t Available metoclopram jose 5 mg tablet TAKE 1 TABLET BY MOUTH THREE TIMES A DAY NEEDED FOR NAUSEA, VOMITING, AND HICCUPS active Not Available Not Available No t Available tamsulosin 0.4 mg capsule active Not Available Not Available Not Available sodium bicarbonate 650 mg tablet TAKE 1 TABLET BY MOUTH 2 TIMES A DAY active Not Available Not Available No t Available pantoprazol e 40 mg tablet,tim yed release active Not Available Not Available Not Available lisinopril 10 mg tablet TAKE 1 TABLET BY MOUTH TWICE A DAY active Not Available Not Available No t Available warfarin 5 mg tablet TAKE 1 TABLET BY MOUTH EVERY DAY 04/01 completed Not Available Not Available Not Available metoprolol tartrate 50 mg tablet PLEASE SEE ATTACHED FOR DETAILED DIRECTION S active Not Available Not Available No t Available docusate sodium 100 mg capsule TAKE 1 CAPSULE BY MOUTH TWICE A DAY 04/01 completed Not Available Not Available Not Available Senna Laxative 8.6 mg tablet TAKE 1 TABLET BY MOUTH 2 (TWO) TIMES A DAY NEEDED FOR CONSTIPAT ION 11/01 completed Not Available Not Available Not Available folic acid 1 mg tablet TAKE 1 TABLET BY MOUTH EVERY DAY active Not Available Not Available No t Available acyclovir 200 mg capsule active Not Available Not Available Not Available gabapentin 100 mg capsule TAKE 1 CAPSULE BY MOUTH TWICE A DAY active Not Available Not Available No t Available warfarin 1 mg tablet 04/01 completed Not Available Not Available Not Available albuterol sulfate HFA 90 mcg/actuati on aerosol inhaler INHALE 1 PUFF EVERY 8 (EIGHT) HOURS NEEDED FOR WHEEZING active Not Available Not Available No t Available oxybutynin chloride 5 mg tablet TAKE 1 TABLET BY MOUTH 3 TIMES A DAY NEEDED (BLADDER SPASMS). active Not Available Not Available No t Available ondansetron 4 mg disintegrat ing tablet TAKE 1 TABLET BY MOUTH EVERY 6 HOURS NEEDED FOR NAUSEA AND VOMITING active Not Available Not Available No t Available fluticasone propionate 50 mcg/actuati on nasal spray,suspe nsion INSTILL 1 SPRAY INTRANASA LLY TWICE A DAY ADMINISTE R INTO EACH NOSTRIL active Not Available Not Available No t Available sertraline 50 mg tablet active Not Available Not Available Not Available ipratropium bromide 0.02 % solution for inhalation INHALE 2.5 ML (0.5 MG) VIA NEBULIZER EVERY 4-6 HOURS NEEDED active Not Available Not Available No t Available oxycodone 5 mg tablet TAKE 1 TABLET BY MOUTH EVERY 4 HOURS NEEDED FOR PAIN active Not Available Not Available No t Available midodrine 10 mg tablet active Not Available Not Available Not Available escitalopra m 10 mg tablet active Not Available Not Available Not Available mycophenola te sodium 360 mg tablet,tim yed release active Not Available Not Available Not Available mirtazapine 7.5 mg tablet TAKE 1 TABLET BY MOUTH AT BEDTIME active Not Available Not Available No t Available atorvastati n 5 mg 2019 active Not Available Not Available Not Avai lable sevelamer carbonate 800 mg tablet active Not Available Not Available Not Available Renvela 2 mg 2019 active Not Available Not Available Not Avai lable Scott Caps 1 mg capsule TAKE ONE CAPSULE BY MOUTH EVERY DAY active Not Available Not Available No t Available Myrbetriq 25 mg tablet,exte nded release active Not Available Not Available Not Available Envarsus XR 1 mg tablet,exte nded release active Not Available Not Available Not Available Envarsus XR 4 mg tablet,exte nded release active Not Available Not Available Not Available Veltassa 8.4 gram oral powder packet MIX 1 PACKET DIRECTED TWICE DAILY AND DRINK active Not Available Not Available No t Available Lokelma 10 gram oral powder packet active Not Available Not Available Not Available Vitals Date Recorded Body height Body mass index (BMI) Body weight Body temperature Provider Name and Address Organization Details Last Updated DateTime 04/01/2024 185.42 cm 31.9 kg/m2 224385.64 g 97.8 [degF] Lisseth Trejo RN [place] [facility] 04/01/2024 14:11:25 Social History None recorded. Functional Status Question Answer Note LastModified by Organization D etails LastModified Time What is your level of alcohol consumption? None [email or web address] Information not available 03/04/2024 Mental Status None recorded. Family History Relationship Description Onset Age of this Age Resolved Age Notes LastModified by Organization Details LastModified Time Father No current problems or disability [email or web address] Not available 04/01 14:10:24 Mother No current problems or disability [email or web address] Not available 04/01 14:10:24 Notes:No ENT Medical History Condition Response ENT Y LUNG DISEASE/DISORDER Y Past Encounters Encounter ID Performer Location Encounter Start Date Encounter Closed Date Diagnosis/Indication Diagnosis SNOMED-CT Code Diagnosis ICD10 Code Diagnosis IMO Codes Diagnosis Note [id number] Osmani Johnson MD [facility] [address] [place] [id number] 04/01/2024 14:01:56 04/01/2024 15:50:46 Impacted cerumen of bilateral ears [id number] 217972 H61.23 Health Concerns Section Related Observation LastModified by Organization Detai ls LastModified Time None Recorded Concern Status LastModified by Organization Details LastModified Time None Recorded Advance Directives Directive None Recorded Payers Insurance Date Sequence Insurance Name Policy Number Policy Gonzalez Covered Member ID Gonzalez Member ID Guarantor Name 04/05/2024 2 [place] [employer] Aleksandra Kumar [id number] Aleksandra Kumar 04/05/2024 2 [place] (MEDICARE) Aleksandra Kumar [id number] Aleksandra Kumar 04/05/2024 1 [facility] (MEDICARE REPLACEMENT/A DVANTAGE - HMO) [id number] Aleksandra Kumar [id number] Aleksandra Kumar Notes Date Note Type Note Provider Name and Address Organization Details Recorded Time 04/01/2024 text/html a cerumen impaction. He also has a history of parathyroidectomy some years ago and wanted his anterior neck examined for goiter Osmani Johnson MD [address] [place] [address], [facility] [address], [place], [address], [facility] 04/01/2024 14:27:33
--- OUTSIDE RECORDS SUMMARY | 2025-08-10 12:53 | XMS_ITS | Encounter Summary ---
Author Organization [facility] Address [address] [place] [address] Care Team Providers Care Bias Machine Operator Helper Name Role Phone Jesu Alonso MD Primary Care Provider [phone] Encounter Details Date Type Department Care Team (Late st Contact Info) Description 02/01/1999 Outpatient Historical [facility] [address] [facility] [address] [place] [phone] [place] [address] [facility] [address] [place] [address] Social History Tobacco Use Types Packs/Day Years Used Date Smoking Tobacco: Never Assessed Sex and Gender Information Value Date Recorded Sex Assigned at Male 09/18/2024 12:16 PM CDT Legal Sex Male 3:26 AM [employer]GRAM [employer]NA[employer] Gender Identity Male 09/18/2024 12:16 PM CDT Sexual Orientation Straight 04/26/2025 10 :00 AM CDT documented as of this encounter Plan of Treatment Upcoming Encounters Date Type Department Care Team (Late st Contact Info) Description 09/15/2025 8:30 AM CDT Office Visit [facility] Hematology - [place] [address] [facility] [address] [address] Kemal Land MD [address] [facility] [address] [place] [address] documented as of this encounter Visit Diagnoses Not on filedocumented in this encounter Care Teams Bias Machine Operator Helper Relationship Specialty Start Date End Date Jesu Alonso MD [address] [facility] [address] [place] [address] PCP - General Internal Medicine 11/24/19 documented as of this encounter
--- OUTSIDE RECORDS SUMMARY | 2025-08-10 12:53 | XMS_ITS | Encounter Summary ---
Author Organization [facility] Address [address] [place] [address] Care Team Providers Care Siebel Architect Name Role Phone Jesu Alonso MD Primary Care Provider [phone] Encounter Details Date Type Department Care Team (Late st Contact Info) Description 06/01/1999 Outpatient Historical [facility] [address] [facility] [address] [place] [phone] [place] [address] [facility] [address] [place] [address] Social History Tobacco Use Types Packs/Day Years Used Date Smoking Tobacco: Never Assessed Sex and Gender Information Value Date Recorded Sex Assigned at Male 09/18/2024 12:16 PM CDT 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 Gender Identity Male 09/18/2024 12:16 PM CDT Sexual Orientation Straight 04/26/2025 10 :00 AM CDT documented as of this encounter Plan of Treatment Upcoming Encounters Date Type Department Care Team (Late st Contact Info) Description 09/15/2025 8:30 AM CDT Office Visit [facility] Oncology and Hematology - [place] [address] [facility] [address] [address] Kemal Land MD [address] [facility] [address] [place] [address] documented as of this encounter Visit Diagnoses Not on filedocumented in this encounter Care Teams Siebel Architect Relationship Specialty Start Date End Date Jesu Alonso MD [address] [facility] [address] [place] [address] PCP - General Internal Medicine 11/24/19 documented as of this encounter
--- OUTSIDE RECORDS SUMMARY | 2025-08-10 12:53 | XMS_ITS | Encounter Summary ---
Author Organization [facility] Healthcare Address [address] [place] [address] Care Team Providers Care Cath Lab Radiological Technologist Name Role Phone Brooke Lawton RN Unavailable [phone] Kemal Land MD Unavailable [phone] Jesu Alonso MD Primary Care Provide r Shiv Gonsalves MD Unavailable [phone] Aly Mims MD Unavailable Ellen Pickett OD Unavailable [phone] Joseph Jasper Roberson Unavailable [phone] Bud Moore MD Unavailable [phone] Aly Chavis MD Unavailable [phone] Maria Luz De La Paz RN Unavailable Unava ilable Encounter Details Date Type Department Care Team (Late st Contact Info) Description 09/22/[address] [facility] Dialysis Access Center at [facility] [address] [facility] [address] [place] [address] Aly Chavis MD [address] [facility] [address] [place] [address] Social History Tobacco Use Types Packs/Day Years Used Date Smoking Tobacco: Never Smokeless Tobacco: Never Alcohol Use Standard Drinks/Week Comments No 0 (1 standard drink = 0.6 oz pur e alcohol) Social Connection and Isolation Panel Answer Date Recorded In a typical week, how many times do you talk on the phone with family, friends, or neighbors? More than three times a week 07/14/2023 How often do you get togethe r with friends or relatives? More than three times a week 07/14/2023 How often do you attend chur ch or mu-ism services? Never 07/14/2023 Do you belong to any clubs o r organizations such as congregation groups, unions, fraternal or athletic groups, or school groups? No 07/14/2023 How often do you attend meet ings of the clubs or organizations you belong to? Never 07/14/2023 Are you , , di vorced, , never , or living with a partner? Never 07/14/2023 AUDIT-C Answer Date Recorded Q1: How often do you have a drink containing alcohol? Never 09/19/2023 Q2: How many drinks containi ng alcohol do you have on a typical day when you are drinking? Patient does not drink Q3: How often do you have si x or more drinks on one occasion? Never 09/19/2023 Overall Financial Resource Strain (CARDIA) Answe r Date Recorded How hard is it for you to pa y for the very basics like food, housing, medical care, and heating? Not hard at all 07/14/2023 PHQ-2 Answer Date Recorded PHQ-2 Total Score (If total score is 3 or more points, staff should administer the PHQ-9) 0 12/05/2021 Hunger Vital Sign Answer Date Recorded Within the past 12 months, y ou worried that your food would run out before you got the money to buy more. Never true 07/14/20 23 Within the past 12 months, t he food you bought just didn't last and you didn't have money to get more. Never true 07/14/2023 PRAPARE - Transportation Answer Date Re corded In the past 12 months, has l ack of transportation kept you from medical appointments or from getting medications? No 06/18 In the past 12 months, has l ack of transportation kept you from meetings, work, or from getting things needed for daily living? No 07/14/2023 Housing Stability Vital Sign Answer Hamilton e Recorded In the last 12 months, was t here a time when you were not able to pay the mortgage or rent on time? No 07/14/2023 In the last 12 months, how many places have you lived? 1 07/14/2023 In the last 12 months, was t here a time when you did not have a steady place to sleep or slept in a retirement (including now)? No 07/14/2023 Sex and Gender Information Value Date Recorded Sex Assigned at Not on file Legal Sex Male 2:58 PM CDT Gender Identity Male 08/11/2020 6:09 AM CDT Sexual Orientation Straight 07/15/2020 10 :56 AM CDT documented as of this encounter Plan of Treatment Scheduled Procedures Name Priority Associated Diagnoses Date/Ti me TRANSPLANT KIDNEY ESRD (end stage renal disease) (HCC) documented as of this encounter Visit Diagnoses Not on filedocumented in this encounter Additional Health Concerns Infection Onset Date Last Indicated Resolved Time COVID: Suspected 11/09/2023 11/09/2023 11/09/2023 1:06 PM CHIEF SERVICE OBSERVER COVID: Suspected 01/16/2024 01/16/2024 01/16/2024 3:33 PM CHIEF SERVICE OBSERVER Rhino/Enterovirus 01/16/2024 01/16/2024 01/23/2024 3:08 AM CHIEF SERVICE OBSERVER documented as of this encounter Care Teams Cath Lab Radiological Technologist Relationship Specialty Start Date End Date Jesu Alonso MD [address] [place] [address] PCP - General 10/19/20 Brooke Lawton, RN [address] [address] Registered Nurse 09/15/18 10/30/23 Kemal Land MD [address] [place] [address] Referring Physician Hematology 01/17/19 Shiv Gonsalves MD [address] [place] [address] Consulting Physician Nephrology 01/01/22 Aly Mims MD [address] [place] [address] Surgeon Vascular Surgery 03/15/22 Ellen Pickett OD [address] [place] [address] Referring Physician Optometry 07/25/22 Jasper Ruiz DO [address] [place] [address] Cardiology 06/24/23 Bud Moore MD [address] [facility] [address] [place] [address] Consulting Physician Vascular Surgery 07/15/23 Aly Chavis MD [address] [facility] [address] [facility] [address] [place] [address] Surgeon Surgery 09/19/23 Maria Luz De La Paz, outbound telemarketerManager Health 10/30/23 documented as of this encounter
--- OUTSIDE RECORDS SUMMARY | 2025-08-10 12:53 | XMS_ITS | Encounter Summary ---
Author Organization [facility] Healthcare Address [address] [place] [address] Care Team Providers Care Telecommunications Linesworker Name Role Phone Chicho Ram MD Unavailable [phone] Brooke Lawton RN Unavailable Kemal Land MD Unavailable Jesu Alonso MD Primary Care Provide r Shiv Gonsalves MD Unavailable [phone] Aly Mims MD Unavailable Ellen Pickett OD Unavailable Jasper Ruiz DO Unavailable [phone] Bud Moore MD Unavailable [phone] Aly Chavis MD Unavailable [phone] Maria Luz De La Paz RN Unavailable Unava ilable Encounter Details Date Type Department Care Team (Late st Contact Info) Description 03/16/2021 Telephone [facility] Radiology [address] [facility] [place] [address] Serge Wilkerson, SANDY [address] [place] [address] Social History Tobacco Use Types Packs/Day Years Used Date Smoking Tobacco: Never Smokeless Tobacco: Never Alcohol Use Standard Drinks/Week Comments No 0 (1 standard drink = 0.6 oz pur e alcohol) Social Connection and Isolation Panel Answer Date Recorded Frequency of Communication w ith Friends and Family More than three times a week 11/20/2019 Frequency of Social Gatherin gs with Friends and Family More than three times a week 11/20/2019 Attends Shinto Services Not on file 11/20 Active Member of Clubs or Organizations No 11/20/2019 Attends Club or Organization Meetings Never 11/20/2019 Marital Status Never 11/20/2019 Overall Financial Resource Strain (CARDIA) Answe r Date Recorded Difficulty of Paying Living Expenses Not hard at all 11/20/2019 PHQ-2 Answer Date Recorded PHQ-2 Score 0 11/19/2019 Hunger Vital Sign Answer Date Recorded Worried About Running Out of Food in the Last Ye ar Never true 11/20/2019 Ran Out of Food in the Last Year Never true 11/20/2019 PRAPARE - Transportation Answer Date Re corded Lack of Transportation (Medical) No 11/20/2019 Lack of Transportation (Non-Medical) No 11/20/2019 Sex and Gender Information Value Date Recorded [...] Infection Onset Date Last Indicated Resolved Time C. difficile Comment:11/201711/29/2021 REVIEWED AND RESOLVED. NO ACTIVE MEDS RELATED TO C-DIFF AND PER RN IN ED PT NOT HAVING ANY DIARRHEA. 09/09/2018 09/08/2018 11/29/2021 12:41 PM KOSHER DIETARY SERVICE SUPERVISOR COVID: Suspected 11/09/2023 11/09/2023 11/09/2023 1:06 PM KOSHER DIETARY SERVICE SUPERVISOR COVID: Suspected 01/16/2024 01/16/2024 01/16/2024 3:33 PM KOSHER DIETARY SERVICE SUPERVISOR Rhino/Enterovirus 01/16/2024 01/16/2024 01/23/2024 3:08 AM KOSHER DIETARY SERVICE SUPERVISOR documented as of this encounter Care Teams Telecommunications Linesworker Relationship Specialty Start Date End Date Jesu Alonso MD [address] [place] [address] PCP - General 10/19/20 Chicho Ram MD Referring Physician Nephrology 09/08/18 12/31/21 Brooke Lawton, RN [address] [address] Registered Nurse 09/15/18 10/30/23 Kemal Land MD [address] [place] [address] Referring Physician Hematology 01/17/19 Shiv Gonsalves MD [address] [place] [address] Consulting Physician Nephrology 01/01/22 Aly Mims MD [address] [place] [address] Surgeon Vascular Surgery 03/15/22 Ellen Pickett OD [address] [place] [address] Referring Physician Optometry 07/25/22 Jasper Ruiz DO [address] [place] [address] Cardiology 06/24/23 Bud Moore MD [address] [facility] [address] [place] [address] Consulting Physician Vascular Surgery 07/15/23 Aly Chavis MD [address] [facility] [address] [place] [address] [place] [address] Surgeon Surgery 09/19/23 Maria Luz De La Paz, tacking machine operatorUnit Support Representative 10/30/23 documented as of this encounter
--- OUTSIDE RECORDS SUMMARY | 2025-08-10 12:53 | XMS_ITS | Encounter Summary ---
Author Organization [facility] Healthcare Address [address] [place] [address] Care Team Providers Care Senior Talent Management Consultant Name Role Phone Brooke Lawton RN Unavailable Kemal Land MD Unavailable [phone] Jesu Alonso MD Primary Care Provide r Shiv Gonsalves MD Unavailable [phone] Aly Mims MD Unavailable Ellen Pickett OD Unavailable [phone] Joseph Jasper Roberson Unavailable [phone] Bud Moore MD Unavailable [phone] Aly Chavis MD Unavailable [phone] Maria Luz De La Paz RN Unavailable Unava ilable Encounter Details Date Type Department Care Team (Late st Contact Info) Description 08/05/2023 Telephone [facility] Dialysis Access Center at [facility] [address] [facility] [address] [place] [address] Jignesh Chavis MD [address] [facility] [address] [place] [address] Social History Tobacco Use Types Packs/Day Years [...] 07/14/2023 How often do you attend chur or nondenominational services? Never 07/14/2023 Do you belong to any clubs o r organizations such as zoroastrian groups, unions, fraternal or athletic groups, or school groups? No 07/14/2023 How often do you attend meet ings of the clubs or organizations you belong to? Never 07/14/2023 Are you , , di vorced, , never , or living with a partner? Never 07/14/2023 AUDIT-C Answer Date Recorded Q1: How often do you have a drink containing alcohol? Never 02/27/2023 Q2: How many drinks containi ng alcohol do you have on a typical day when you are drinking? Patient does not drink Q3: How often do you have si x or more drinks on one occasion? Never 02/27/2023 Overall Financial Resource Strain (CARDIA) Answe r [...] place to sleep or slept in a custodial (including now)? No 07/14/2023 Sex and Gender [...] COVID: Suspected 11/09/2023 11/09/2023 11/09/2023 1:06 PM SENIOR HYDROGEOLOGIST COVID: Suspected 01/16/2024 01/16/2024 01/16/2024 3:33 PM SENIOR HYDROGEOLOGIST Rhino/Enterovirus 01/16/2024 01/16/2024 01/23/2024 3:08 AM SENIOR HYDROGEOLOGIST documented as of this encounter Care Teams Senior Talent Management Consultant Relationship Specialty Start Date End Date Jesu Alonso MD [address] [place] [address] PCP - General 10/19/20 Brooke Lawton, RN [address] [address] Registered Nurse 09/15/18 10/30/23 Kemal Land MD [address] [place] [address] Referring Physician Hematology 01/17/19 Shiv Gonsalves MD [address] [place] [address] Consulting Physician Nephrology 01/01/22 Aly Mims MD [address] [place] [address] Surgeon Vascular Surgery 03/15/22 Ellen Pickett, BREE [address] [place] [address] Referring Physician Optometry 07/25/22 Jasper Ruiz DO [address] [place] [address] Cardiology 06/24/23 Bud Moore MD [address] [facility] [address] [place] [address] Consulting Physician Vascular Surgery 07/15/23 Aly Chavis MD [address] [facility] [address] [facility] [address] [place] [address] Surgeon Surgery 09/19/23 Maria Luz De La Paz, com writerNutritionist Public Health 10/30/23 documented as of this encounter
--- OUTSIDE RECORDS SUMMARY | 2025-08-10 12:53 | XMS_ITS | Encounter Summary ---
Author Organization [facility] Address [address], [place] [address] Phone Care Team Providers Care Conditioner Tumbler Operator Name Role Phone Unavailable Primary Care Provider Unavailabl e Reason for Visit * Reason Comments Med Refill Encounter Details Date Type Department Care Team (Late st Contact Info) Description 10/04/2020 Refill [facility] Nephrology and Hypertension [address] [place] [address], [address] [place] [address] Mason Bruce MD [address] [facility], [address] [place] [address] Social History Tobacco Use Types Packs/Day Years Used Date Smoking Tobacco: Never Assessed Sex and Gender Information Value Date Recorded Sex Assigned at Not on file Legal Sex Male 9:42 AM [facility] Gender Identity Male 12/22/2018 9:42 AM [facility] Sexual Orientation Not on file documented as of this encounter Plan of Treatment Not on file documented as of this encounter Visit Diagnoses Not on filedocumented in this encounter
--- OUTSIDE RECORDS SUMMARY | 2025-08-10 12:53 | XMS_ITS | Clinical Summary ---
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 Left: Arm Artegraft Inc 03/16/2022 [id number] / / [id number] Wl [place] [employer] [place] Acuseal 4-7mm 45cm Taper Graft Vascular Sterile [id number] - [id number] - [id number] Implanted:Qty: 1 on 07/12/2023 by Bud Moore MD at [facility] Right: Arm Wl [employer] [id number] 12/30/2025 [id number] / [id number] / Angio Dynamics Duraflow Embosafe 15.5fr 32cm Basic 2 Lumen Kit Catheter [id number] - [id number] Implanted:Qty: 1 on 07/15/2023 by Bud Moore MD at [facility] Left: Subclavian [employer] Systems 11/16/2025 [id number] / / [id number] Explanted Type Area Motor Coach Chauffeur Device Identifier Shelf Expiration Date Model / Serial / Lot Prolify Medical Inc Universa 6fr 20cm Radiopaque Positioner Monofilament Tether 2 [id number] - [id number] Implanted:Qty: 1 on 10/30/2023 by Soto Lehman MD PhD at 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 Specimens from kidney retransplant recipients in whom [...] its performance characteristics were determined by the [facility] laboratory. The test has not been cleared or approved by the U.S. Food and Drug Administration, nor is it currently required to be. The laboratory is certified under the Clinical Laboratory Improvement Amendments of 1988 (CLIA '88) and accredited by the College [employer] (CAP) as qualified to perform high complexity clinical laboratory testing. The contents of this report are confidential and intended solely for the use of authorized personnel. AlloSure testing performed at [facility]. [address] [place] [id number] (CLIA No: [id number], CAP No: [id number]) Food And Beverage Coordinator: Serge Rushing M.D. Plasma 07/06/2025 6:15 PM CDT us Sissy Lancaster MD LAB BLOOD ORDERABLES Final Resu lt [facility] * (ABNORMAL) Tacrolimus level trough (07/06/2025 3:20 [...] [facility] - 07/11/2025 4:11 PM CDT Test(s) [id number] (FK506), Blood was developed and its performance characteristics determined by [employer]. It has not been cleared or approved by the Food and Drug Administration. Performed at: - [address] [id number] Food And Beverage Coordinator: Haider Carter MD, Phone: [phone] us Sissy Lancaster MD LAB BLOOD ORDERABLES Final Resu lt [facility] - 01 * (ABNORMAL) Tacrolimus level trough (06/22/2025 3:55 PM CDT) [facility] Tacrolimus (FK506), Blood 2.4(L) 5.0 - 20.0 ng/mL [facility] - 01 Comment: Target steady state trough [...] [facility] - 06/25/2025 4:10 PM CDT Test(s) [id number] (FK506), Blood was developed and its performance characteristics determined by [facility]. It has not been cleared or approved by the Food and Drug Administration. Performed at: - [address], [place] [id number] Food And Beverage Coordinator: Haider Carter MD, Phone: [phone] us Sissy Lancaster MD LAB BLOOD ORDERABLES Final Resu lt [facility] - 01 * CBC with auto differential (06/22/2025 3:55 PM CDT) Pathologist [facility] WBC 5.7 3.4 - 10.8 x10E3/uL [facility] [...] - 06/23/2025 5:08 AM CDT Performed at: [address] [place] [id number] Food And Beverage Coordinator: Deonte Villa PhD, Phone: [phone] Sissy Lancaster MD LAB BLOOD ORDERABLES Final Resu lt Performing Organization Address [facility] de Phone Number [facility] - * (ABNORMAL) Hemoglobin A1c (06/22/2025 3:55 PM CDT) Pathologist [facility] Hgb A1C 5.9(H) 4.8 - 5.6 % [facility] - 01 Comment: Prediabetes: 5.7 - 6.4 Diabetes: >6.4 Glycemic control for adults with diabetes: <7.0 Blood 06/22/2025 3:55 PM CDT 06/22/2025 Narrative [facility] - 06/23/2025 6:09 AM CDT Performed at: [address] [place] [id number] Food And Beverage Coordinator: Deonte Villa PhD, Phone: [phone] Sissy Lancaster MD LAB BLOOD ORDERABLES Final Resu Performing Organization Address [facility] de Phone Number [facility] - 01 * (ABNORMAL) Hepatic function panel (06/22/2025 3:55 PM CDT) Pathologist [facility] Protein, sr 6.8 6.0 - 8.5 g/dL [...] - 06/23/2025 8:12 AM CDT Performed at: [address] [id number] Food And Beverage Coordinator: Deonte Villa PhD, Phone: [phone] us Sissy Lancaster MD LAB BLOOD ORDERABLES Final Resu lt Performing Organization Address City/[facility]/ZIP Co de Phone [facility] - 01 * (ABNORMAL) Renal function panel (06/22/2025 3:55 PM CDT) [facility] Glucose 91 70 - 99 mg/dL [facility] [...] - 06/23/2025 8:12 AM CDT Performed at: [address] [id number] Food And Beverage Coordinator: Deonte Villa PhD, Phone: [phone] us Sissy Lancaster MD LAB BLOOD ORDERABLES Final Resu lt [facility] - 01 * (ABNORMAL) Lipid panel (06/22/2025 3:55 PM CDT) Pathologist [facility] Cholesterol 128 100 - 199 mg/dL [facility] - 01 Triglycerides 161(H) 0 - 149 mg/dL [facility] - 01 HDL Cholesterol 29(L) >39 mg/dL [facility] - 01 VLDL 28 5 - 40 mg/dL [facility] - 01 LDL, calculated 71 0 - 99 mg/dL [facility] - 01 Blood 06/22/2025 3:55 PM CDT 06/22/2025 Narrative [facility] - 06/23/2025 7:09 AM CDT Performed at: [address] [id number] Food And Beverage Coordinator: Deonte Villa PhD, Phone: [phone] us Sissy Lancaster MD LAB BLOOD ORDERABLES Final Resu lt Performing Organization Address [facility] Co de Phone Number [facility] - 01 * HLA Donor Specific Antibody Report (06/22/2025 10:00 AM CDT) Noni Whittington NP LAB BLOOD ORDERABLES Final R esult * HLA Antibody Screen - DSA (Class I and Class II) (06/22/2025 10:00 AM CDT) Blood 06/22/2025 10:0 0 AM CDT 06/29/2025 12:15 PM CDT Narrative [facility] - 06/29/2025 12:15 PM CDT Noni Whittington NP LAB BLOOD ORDERABLES Final R esult Performing Organization Address [facility] Co de Phone Number [facility] * Hepatitis C antibody Blood (01/20/2024 9:20 AM AWS ARCHITECT) Pathologist [facility] Hep C Ab Nonreactive Nonreactive FRANK OCONNOR Comment:Antibodies to HCV no t detected. Does NOT exclude the possibility of recent exposure to HCV. Current interpretive data was last revised on 22 Blood 01/20/2024 9:20 AM AWS ARCHITECT 01/20/2024 12:47 PM AWS ARCHITECT Soto Lehman MD PhD LAB MICROBIOLOGY - GENERAL TRACEY MEREDITH Final Result [facility] Department [place] [address] from Last 3 Months or Most Recently Relevant to Health Maintenance Insurance GT [employer] [facility] MEDICARE ADVANTAGE [facility] MEDICARE ADVANTAGE MEDICARE IDPA IDPA [facility] MEDICARE ADVANTAGE IDWI [facility] [address] [place] [address] Advance Directives For more information, please contact: [phone] Documents on File Type Date Recorded Patient Drier Tender Naphthalene Expl anation ADVANCE DIRECTIVE 10/30/2023 1:20 PM Micky r of Wax Room Supervisor-Medical ADVANCE DIRECTIVE 09/10/2018 12:00 AM DNR ADVANCE DIRECTIVE 09/10/2018 12:00 AM POW ER OF IC DESIGNER STANDARD CELLS FINANCIAL/MEDICAL * Full Code (Latest Code Status on File) Date Activated Date Inactivated Comments 03/22/2024 9:11 PM 03/26/2024 10:45 PM * Full Code Date Activated Date Inactivated Comments 01/27/2024 1:09 PM 01/28/2024 5:24 AM * Full Code Date Activated Date Inactivated Comments 01/16/2024 7:37 PM 01/18/2024 6:50 PM * Full Code Date Activated Date Inactivated Comments 01/15/2024 7:44 AM 01/15/2024 12:58 PM * Full Code Date Activated Date Inactivated Comments 12/27/2023 7:04 PM 01/01/2024 6:46 PM Healthcare Agents on File Name Relationship Healthcare Agent Relationshi p Communication Lauryn Mooney Mother Health Care Agent [email or web address] Care Teams Degree Clerk Relationship Specialty Start Date End Date Jesu Alonso MD [address] [place] [address] PCP - General 10/19/20 Kemal Land MD [address] [place] [address] Referring Physician Hematology 01/17/19 Shiv Gonsalves MD [address] [place] [address] Consulting Physician Nephrology 01/01/22 Aly Mims MD [address] [place] [address] Surgeon Vascular Surgery 03/15/22 Ellen Pickett OD [address] [place] [address] Referring Physician Optometry 07/25/22 Jasper Ruiz DO [address] [place] [address] Cardiology 06/24/23 Bud Moore MD [address] [facility] [place] [address] Consulting Physician Vascular Surgery 07/15/23 Aly Chavis MD [address] [facility] [place] [address] [place] [address] Surgeon Surgery 09/19/23 Maria Luz De La Paz, cotton stripperHead Of Biology 10/30/23
--- OUTSIDE RECORDS SUMMARY | 2025-08-10 12:53 | XMS_ITS | Encounter Summary ---
Author Organization [facility] [employer] [facility] Address [address] [place] [address] Care Team Providers Care Legal Mediator Name Role Phone Jesu Alonso MD Primary Care Provider [phone] Encounter Details Date Type Department Care Team (Late st Contact Info) Description 08/08/2025 Orders Only [facility] Oncology and Hematology - [place] [address] [facility] [address] [place] [address] Kemal Land MD [address] [facility] [address] [place] [address] Malignant neoplasm of lung, unspecified laterality, unspecified part of lung (CMS/HCC) Social History Tobacco Use Types Packs/Day Years Used Date Smoking Tobacco: Never Alcohol Use Standard Drinks/Week Comments No 0 (1 standard drink = 0.6 oz pur e alcohol) Sex and Gender Information Value Date Recorded Sex Assigned at Male 09/18/2024 12:16 PM CDT 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 Gender Identity Male 09/18/2024 12:16 PM CDT Sexual Orientation Straight 04/26/2025 10 :00 AM CDT documented as of this encounter Plan of Treatment Upcoming Encounters Date Type Department Care Team (Late st Contact Info) Description 09/15/2025 8:30 AM CDT Office Visit [facility] Oncology and Hematology [facility] [address] [facility] [address] [place] [address] Kemal Land MD [address] [facility] [address] [place] [address] documented as of this encounter Visit Diagnoses Diagnosis Malignant neoplasm of lung, unspecified laterality, unspecified part of lung (CMS/HCC) documented in this encounter Care Teams Legal Mediator Relationship Specialty Start Date End Date Jesu Alonso MD [address] [facility] [address] [place] [address] PCP - General Internal Medicine 11/24/19 documented as of this encounter
--- OUTSIDE RECORDS SUMMARY | 2025-08-10 12:53 | XMS_ITS | Encounter Summary ---
Author Organization [facility] Address [address] [place] [address] Care Team Providers Care Medical Geneticist Name Role Phone Jesu Alonso MD Primary Care Provider [phone] Encounter Details Date Type Department Care Team (Late st Contact Info) Description 02/01/[address] 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 Oncology and Hematology - [place] [address] [facility] [address] [address] Kemal Land MD [address] [facility] [address] [place] [address] documented as of this encounter Visit Diagnoses Not on filedocumented in this encounter Care Teams Medical Geneticist Relationship Specialty Start Date End Date Jesu Alonso MD [address] [facility] [address] [place] [address] PCP - General Internal Medicine 11/24/19 documented as of this encounter
--- OUTSIDE RECORDS SUMMARY | 2025-08-10 12:53 | XMS_ITS | Clinical Summary ---
Author Organization [facility] Address [address] [place] [address] Care Team Providers Care Can Sealer Name Role Phone Fito Pena MD Primary Care Provider [phone] Source Comments [facility],non-owned Affiliates and Associated Physician Practices is amultiple site organization consisting of ambulatory clinics and hospital sitesin [place], [place], [place]. This disclosure is being madepursuant to the Care Everywhere program and may not contain all information available regarding this patient. Last updated 18.[facility] [employer] Allergies Active Allergy Reactions Criticality Noted Date Comments Wvejdumj-Scbhmunpqj-Bqxfk yxin Rash Medium 06/18/2018 THIS IS TO ALL TOPICAL OINTMENTS Medications * Be aware that medications may not be up to date on this document. Alwaysverify current medications with the patient. aspirin EC (ECOTRIN) 325 MG tablet Take 325 mg by mouth 8 Active atorvastatin (LIPITOR) 10 MG tablet Take 1 tablet by mouth 8 Active carvedilol (COREG) 25 MG tablet Take 1 tablet by mouth 8 Active enoxaparin (LOVENOX) injection Inject 150 mg subcutaneously 8 Active Ferric Citrate (AURYXIA) 1 GM 210 MG(Fe) Take 1 tablet by mouth 8 Active folic acid (FOLVITE) 1 MG tablet Take 1 mg by mouth 8 Active albuterol-ipra tropium (DUO-NEB) 0.5-2.5 (3) MG/3ML nebulizer solution Inhale 3 mL by mouth Active lisinopril (PRINIVIL; ZESTRIL) 30 MG tablet Take 30 mg by mouth Active omeprazole (PRILOSEC) 40 MG capsule Take 1 capsule by mouth 8 Active cinacalcet (SENSIPAR) 30 MG tablet Take 1 tablet by mouth 8 Active ondansetron (ZOFRAN) 4 MG tablet Take 4 mg by mouth 7 Active warfarin (COUMADIN) 5 MG tablet Take 1 tablet by mouth 8 Active vitamin D3 (CHOLECALCIFER OL) 5000 units capsule Take 5,000 Units by mouth once daily Active mirtazapine (REMERON) 7.5 MG tablet TAKE 1 TABLET BY MOUTH EVERY NIGHT AT BEDTIME 9 Active prochlorperazi ne (COMPAZINE) 10 MG tablet Take 10 mg by mouth every 6 hours as needed 8 Active B Bfitojo-G-Dlux c Acid (RENAL VITAMIN PO) TAKE ONE CAPSULE BY MOUTH EVERY DAY 9 Active sevelamer carbonate (RENVELA) 800 MG Take 800 mg by mouth Active Potassium Chloride (KLOR-CON 10 PO) TAKE 1 TABLET BY MOUTH EVERY DAY 9 Active metoprolol tartrate (LOPRESSOR) 100 MG tablet Take 100 mg by mouth once daily Active Family History Medical History Relation Name Comments Hypertension Brother 1 Hypertension Brother 2 Hypertension Brother 3 Cancer - Colon Father Hypertension Father Arthritis - Rheumatoid Mother Hypertension Mother Other Mother Relation Name Status Comments Brother 1 Alive Brother 2 Alive Brother 3 Alive Father Alive Maternal Grandfather Maternal Grandmother Mother Alive neuropathy Paternal Grandfather Paternal Grandmother Social History Tobacco Use Types Packs/Day Years Used Date Smoking Tobacco: Never Smokeless Tobacco: Never Alcohol Use Standard Drinks/Week Comments No 0 (1 standard drink = 0.6 oz pur e alcohol) Sex and Gender Information Value Date Recorded Sex Assigned at Not on file Legal Sex Male 11:45 AM CDT Gender Identity Not on file Sexual Orientation Not on file Last Filed Vital Signs Vital Sign Reading Time Taken Comments Blood Pressure 139/91 03/18/2019 8:30 AM CDT Pulse - - Temperature - - Respiratory Rate 18 03/18/2019 8:30 AM CDT Oxygen Saturation 100% 03/18/2019 8:30 AM CDT Inhaled Oxygen Concentration - - Weight - - Height - - Body Mass Index - - Plan of Treatment Health Maintenance Due Date Last Done Comments MEDICARE AWV 12 MONTHS 1988 HIV SCREENING 01/30/2003 HEPATITIS C SCREENING 01/26/2006 DTAP/TDAP/TD VACCINES (1 - Tdap) 01/30/2007 HEPATITIS B VACCINE (1 of 3 - 19+ 3-dose series) 01/30/2007 HPV VACCINE (1 - 3-dose SCDM series) 01/30/2015 DEPRESSION SCREENING 11/17/2024 COVID-19 VACCINE (1 - 2023-2 5 season) 2025 INFLUENZA VACCINE (#1) 2025 ZOSTER VACCINE (1 of 2) 01/30/2038 HIB VACCINE Aged Out No longer eligi ble based on patient's age to complete this topic MENINGOCOCCAL (Group B) VACC INE SHARED DECISION-MAKING Aged Out No longer eligibl e based on patient's age to complete this topic MENINGOCOCCAL GROUPS A/C/Y/W VACCINE Aged Out No longer eligible b ased on patient's age to complete this topic PNEUMOCOCCAL VACCINE Aged Out No long er eligible based on patient's age to complete this topic Insurance [employer] MEDICARE MEDICAID - [place] Care Teams Can Sealer Relationship Specialty Start Date End Date Fito Pena MD [address] [place] [address] 3 [place] [address] PCP - General Family Medicine 05/27/18
--- OUTSIDE RECORDS SUMMARY | 2025-08-10 12:53 | XMS_ITS | Clinical Summary ---
Author Organization [facility] Address [address] [place] [place] [address] Phone Care Team Providers Care Seat Installer Name Role Phone Jesu Alonso MD Primary Care Provider Allergies Active Allergy Reactions Criticality Noted Date Comments Adhesive Tape-Silicones Rash Medium 10/03/2017 Hydrocodone Itching,Nausea and Vomiting Low 04/13/2020 Patient reports only tolerating tramadol for pain. - S November, PharmD 11/2019 Patient reports only tolerating tramadol for pain. - S November, PharmD 11/2019 Patient reports only tolerating tramadol for pain. - S November, PharmD 11/2019 Hydrocodone-Acetaminophe n Nausea and Vomiting Low 11/19/2019 Patient reports only tolerating tramadol for pain. - S November, PharmD 11/2019 Hydrocortisone Rash Low 02/01/2021 Hydrocortisone-Acetic Acid Rash Medium 07/18/2020 Dgrfy-Mxvum-Oehjjkp-Pram oxine Rash Low 02/01/2021 Neomycin Rash Medium 06/18/2018 THIS IS TO ALL TOPICAL OINTMENTS THIS IS TO ALL TOPICAL OINTMENTS Pkrvzobo-Nqixsyxgvs-Nzgk myxin Rash Medium 07/18/2020 Lyscuvih-Jjsjcnbzdqk-Dfv ymyxnb Rash Medium 06/18/2018 THIS IS TO ALL TOPICAL OINTMENTS Medications ipratropium-albu terol (DUONEB) 0.5 mg-3 mg(2.5 mg base)/3 mL Solution for Nebulization Take 3 mL by inhalation every 6 hours as needed for Shortness of Breath. Active folic acid (FOLVITE) 1 mg tablet Take 1 mg by mouth daily. Active omeprazole (PriLOSEC) 40 mg Capsule, Delayed Release(E.C.) TAKE ONE CAPSULE BY MOUTH BEFORE A MEAL 11 8 Active mirtazapine (REMERON) 7.5 mg tablet TAKE 1 TABLET BY MOUTH EVERY NIGHT AT BEDTIME 5 9 Active cholecalciferol, Vitamin D3, 5,000 unit Capsule Take 5,000 Units by mouth daily. Active metoprolol tartrate (LOPRESSOR) 100 mg tablet Take 100 mg by mouth 2 times daily. Active sennosides (SENOKOT) 8.6 mg tablet Take 1 Tablet by mouth. Active furosemide (LASIX) 80 mg tablet Take 80 mg by mouth. 9 Active RAVULIZUMAB-CWVZ IV Inject 3,600 mg by intraveous injection Every Eight Weeks. Active calcitRIOL (ROCALTROL) 0.5 mcg capsule Take 1 mcg by mouth daily. Active gabapentin (NEURONTIN) 100 mg capsule TAKE 2 CAPSULES BY MOUTH EVERY MORNING AND 1 CAPSULE IN THE EVENING 1 Active midodrine (PROAMATINE) 10 mg Tablet TAKE 1 TABLET BY MOUTH THREE TIMES A DAY NEEDED FOR SEVERE HYPOTENSION 0 Active atorvastatin calcium (LIPITOR ORAL) atorvastatin 5 mg Active ondansetron (ZOFRAN ODT) 8 mg Tablet, Rapid Dissolve Dissolve 1 tablet on top of tongue then swallow with saliva every 8 hours as needed for nausea or vomiting 30 Tablet 2 2 Active metoclopramide HCl (REGLAN) 5 mg tablet TAKE 1 TABLET BY MOUTH THREE TIMES A DAY NEEDED FOR NAUSEA, VOMITING, AND HICCUPS 3 Active escitalopram oxalate (LEXAPRO) 10 mg tablet Take 10 mg by mouth daily. Active warfarin (COUMADIN) 4 mg tabletIndication s: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 (CMS/HCC) TAKE TWO TABLETS BY MOUTH EVERY DAY 60 Tablet 4 Active potassium chloride (KLOR-CON M20) 20 mEq Extended Release tablet Take 1 tablet by mouth BID. 60 Tablet 1 5 Active ELDERBERRY FRUIT ORAL Take by mouth daily. Active COQ10, UBIQUINOL, ORAL Take 400 mg by mouth daily. 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 Encounters Date Type Department Care Team Description 08/08/2025 Orders Only [facility] Oncology and Hematology - [place] [address] [place] [id number] Kemal Land MD Malignant neoplasm of lung, unspecified laterality, unspecified part of lung (CMS/HCC) 08/02/2025 External Device Data STL ABSTRACTION Provider, Abstract 08/01/2025 Orders Only [facility] Oncology and Hematology - [place] [address] [place] [address] Kemal Land MD Malignant neoplasm of lung, unspecified laterality, unspecified part of lung (CMS/HCC) 07/25/2025 Orders Only [facility] Oncology and Hematology - [place] [address] [place] [address] Kemal Land MD Malignant neoplasm of lung, unspecified laterality, unspecified part of lung (CMS/HCC); Chronic anemia 07/22/2025 Orders Only [facility] Oncology and Hematology - [place] [address] [place] [address] Kemal Land MD 07/20/2025 Orders Only [facility] Oncology and Hematology - [place] [address] [place] [address] Kemal Land MD Malignant neoplasm of lung, unspecified laterality, unspecified part of lung (CMS/HCC) (Primary Dx) 07/19/2025 External Device Data STL ABSTRACTION Provider, Abstract 07/11/2025 Orders Only [facility] Oncology and Hematology - [place] [address] Kemal Land MD Malignant neoplasm of lung, unspecified laterality, unspecified part of lung ([facility]/HCC); Chronic anemia 07/05/2025 External Device Data STL ABSTRACTION Provider, Abstract 06/27/2025 Orders Only [facility] Oncology and Hematology - [place] [address] [place] [phone] Kemal Land MD Malignant neoplasm of lung, unspecified laterality, unspecified part of lung ([facility]/HCC); Chronic anemia 06/22/2025 External Device Data STL ABSTRACTION Provider, Abstract 06/21/2025 External Device Data STL ABSTRACTION Provider, Abstract 06/13/2025 Orders Only [facility] Oncology and Hematology - [place] [address] [place] [id number] Kemal Land MD Malignant neoplasm of lung, unspecified laterality, unspecified part of lung ([facility]/HCC); Chronic anemia 06/01/2025 External Device Data STL ABSTRACTION Provider, Abstract 05/31/2025 External Device Data STL ABSTRACTION Provider, Abstract 05/30/2025 Orders Only [facility] Oncology and Hematology - [place] [address] [place] [address] Kemal Land MD Malignant neoplasm of lung, unspecified laterality, unspecified part of lung ([facility]/HCC); Chronic anemia 05/24/2025 External Device Data STL ABSTRACTION Provider, Abstract 05/18/2025 Orders Only [facility] Oncology and Hematology - [place] [address] [place] [address] Kemal Land MD 05/17/2025 8:30 AM CDT Office Visit [facility] Oncology and Hematology - [place] [address] [place] [id number] Kemal Land MD Hemolytic-uremic syndrome, unspecified subtype (CMS/HCC) (Primary Dx); Deep vein thrombosis (DVT) of other vein of both lower extremities, unspecified chronicity (CMS/HCC) 05/16/2025 Orders Only [facility] Oncology and Hematology [facility] [address] [place] [address] Kemal Land MD Malignant neoplasm of lung, unspecified laterality, unspecified part of lung ([facility]/HCC); Chronic anemia 05/12/2025 Refill [facility] Oncology and Hematology [facility] [address] [place] [address] Kemal Land MD 05/10/2025 External Device Data STL ABSTRACTION Provider, Abstract 05/10/2025 Refill [facility] Oncology [facility] Hematology [facility] [address] [place] [address] Kemal Land MD from Last 3 Months Immunizations Immunization Administration Dates Next Due (TELOS) COVID-19 VACCINE - EMERGENCY USE AUTHORIZATION, AD26,COV2S(PF) 0.5 ML IM SUSP 01/20/2021 Family History Medical History Relation Name Comments Colon Cancer Father Other Mother Healthy Sister Relation Name Status Comments Father Alive Mother Alive Sister Alive Social History Tobacco Use Types Packs/Day Years Used Date Smoking Tobacco: Never Tobacco Cessation:Counseling Given: Not Answered Alcohol Use Standard Drinks/Week Comments No 0 (1 standard drink = 0.6 oz pur e alcohol) Sex and Gender Information Value Date Recorded Sex Assigned at Male 09/18/2024 12:16 PM CDT Legal Sex Male 3:26 AM 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 Gender Identity Male 09/18/2024 12:16 PM CDT Sexual Orientation Straight 04/26/2025 10 :00 AM CDT Last Filed Vital Signs Vital Sign Reading Time Taken Comments Blood Pressure 164/99 05/17/2025 8:46 AM CDT Pulse 83 05/17/2025 8:43 AM CDT Temperature 36.1 C (96.9 F) 05/17/2025 8:43 AM CDT Respiratory Rate 16 05/17/2025 8:43 AM CDT Oxygen Saturation 96% 05/17/2025 8:43 AM CDT Inhaled Oxygen Concentration - - Weight 138.2 kg (304 lb 9.6 oz) 05/17/2025 8:43 AM CDT Height 185.4 cm (6' 1) 08/20/2022 9:59 AM CDT Body Mass Index 40.19 08/20/2022 9:59 AM CDT Plan of Treatment Upcoming Encounters Date Type Department Care Team (Late st Contact Info) Description 09/15/2025 8:30 AM CDT Office Visit [facility] Oncology and Hematology - [place] [address] [facility] [address] [place] [address] Kemal Land MD [address] [facility] [address] [place] [address] Health Maintenance Due Date Last Done Comments Pre-Diabetes and Diabetes Screening 1988 DTAP/TDAP/TD VACCINES (1 - Tdap) 01/30/2007 HEPATITIS B VACCINES (1 of 3 - 19+ 3-dose series) 01/30/2007 HPV VACCINES (1 - Risk 3-dos e SCDM series) 01/30/2015 INFLUENZA VACCINE (#1) 2025 , 08/27/2023, 08/19/2022, Additional history exists COVID-19 Vaccine (3 - 2024-2 6 season) 2025 07/19/2022, 01/20/2021 Procedures Procedure Name Priority Date/Time Associated Diagnosis Comments COMPREHENSIVE METABOLIC PANEL Routine 07/21/2025 11:26 AM CDT CBC WITH AUTODIFFERENTIAL Routine 2024 10:57 AM CDT COMPREHENSIVE METABOLIC PANEL Routine 05/17/2025 7:46 AM CDT BASIC METABOLIC PANEL Routine 05/17/2025 7:37 AM CDT from Last 3 Months Results * COMPREHENSIVE METABOLIC PANEL (07/21/2025 11:26 AM CDT) Only the most recent of2 resultswithin the time period is included. Blood us Kemal Land MD CHEMISTRY ORDERABLES Final Resu lt * CBC WITH AUTODIFFERENTIAL (07/21/2025 10:57 AM CDT) Blood Kemal Land MD HEMATOLOGY ORDERABLES Final Res ult * BASIC METABOLIC PANEL (05/17/2025 7:37 AM CDT) Blood Kemal Land MD CHEMISTRY ORDERABLES Final Resu lt from Last 3 Months Insurance MEDICAID [place] Care Teams Seat Installer Relationship Specialty Start Date End Date Jesu Alonso MD [address] [place] [id number] PCP - General Internal Medicine 11/24/19
--- OUTSIDE RECORDS SUMMARY | 2025-08-10 12:54 | XMS_ITS | Clinical Summary ---
Author Organization [facility] Address [address] [place] [address] Care Team Providers Care Management Architect Name Role Phone Fito Pena MD Primary Care Provider [phone] Allergies Active Allergy Reactions Criticality Noted Date Comments Neomycin-Bacitracin Zn-Polymyx Rash Medium 06/18/2018 THIS IS TO ALL TOPICAL OINTMENTS Medications aspirin EC 325 MG EC tablet Take 325 mg by mouth daily. Will stop 5 days prior to surgery 9 07/17/2018 Active warfarin 5 MG tablet Take 1 tablet by mouth nightly. Will stop 5 days prior to surgery 02/27/2018 Active folic acid 1 MG tablet Take 1 mg by mouth daily. 08/14/2018 Active atorvastatin 10 MG tablet Take 1 tablet by mouth daily. 08/14/2018 Active omeprazole 40 MG capsule Take 1 capsule by mouth daily. 08/14/2018 Active Ferric Citrate (AURYXIA) 1 GM 210 MG(Fe) Tab Take 1 tablet by mouth 3 (three) times daily with meals. 04/21/2018 Active carvedilol 25 MG tablet Take 1 tablet by mouth 2 (two) times a day. 08/14/2018 Active lisinopril 30 MG tablet Take 30 mg by mouth 2 (two) times a day. Active ondansetron 4 MG tablet Take 4 mg by mouth every 8 (eight) hours as needed. 10/03/2017 Active SENSIPAR 30 MG tablet Take 1 tablet by mouth nightly. 6 07/29/2018 Active enoxaparin 150 MG/ML injection Inject 150 mg into the skin daily. Will start 09/02/18 08/26/2018 Active ipratropium-alb uterol 0.5-2.5 (3) MG/3ML Solution Inhale 3 mLs into the lungs as needed. Active Family History Medical History Relation Comments Cancer Father colon Hypertension Father Hypertension Mother Relation Status Comments Father Alive Mother Alive Social History Tobacco Use Types Packs/Day Years Used Date Smoking Tobacco: Never Smokeless Tobacco: Never Alcohol Use Standard Drinks/Week Comments No 0 (1 standard drink = 0.6 oz pur e alcohol) AUDIT-C Answer Date Recorded Frequency of Alcohol Consumption Never 08/31/2018 Average Number of Drinks Not on file 018 Frequency of Binge Drinking Not on file 08/17 Sex and Gender Information Value Date Recorded Sex Assigned at Not on file Legal Sex Male 1:30 PM CDT Gender Identity Not on file Sexual Orientation Not on file Last Filed Vital Signs Vital Sign Reading Time Taken Comments Blood Pressure 150/92 11/14/2023 4:46 PM LOGISTICS SUPPORT Pulse 90 11/14/2023 4:46 PM LOGISTICS SUPPORT Temperature 36.6 C (97.9 F) 11/14/2023 4:46 PM LOGISTICS SUPPORT Respiratory Rate 18 11/14/2023 4:46 PM LOGISTICS SUPPORT Oxygen Saturation 97% 11/14/2023 4:46 PM LOGISTICS SUPPORT Inhaled Oxygen Concentration - - Weight 132.8 kg (292 lb 12.3 oz) 11/14/2023 4:46 PM LOGISTICS SUPPORT Height 185.4 cm (6' 1) 11/14/2023 4:46 PM LOGISTICS SUPPORT Body Mass Index 38.63 11/14/2023 4:46 PM LOGISTICS SUPPORT Plan of Treatment Health Maintenance Due Date Last Done Comments Annual Physical 01/30/1991 DTaP, Tdap and Td Vaccines (1 - Tdap) 01/30/2007 Hepatitis B Vaccines (1 of 3 - 19+ 3-dose series) 01/30/2007 HPV Vaccines (1 - 3-dose SCDM series) 01/30/2015 COVID-19 Vaccine ( - 2024- season) 2025 07/19/2022, 01/20/2021 Meningococcal Vaccine Aged Out 03/24/2018 , 02/10/2018, 02/10/2018, Additional history exists No longer eligible based on patient's age to complete this topic Hepatitis C Completed 10/30/2023, 10/17, 10/16/2023, Additional history exists Meningococcal B Vaccine Aged Out No l onger eligible based on patient's age to complete this topic Pneumococcal Vaccine: Pediatrics (0 to 5 Years) and At-Risk Patients (6 to 49 Years) Aged Out No longer eligible based on patient's age to complete this topic RSV Immunizations Under 20 Months Aged Out No longer eligible based on patient's age to complete this topic Insurance MEDICAID [place] Care Teams Management Architect Relationship Specialty Start Date End Date Fito Pena MD [address] [address] PCP - General FAMILY PRACTICE 08/31/18
--- OUTSIDE RECORDS SUMMARY | 2025-08-10 12:54 | XMS_ITS | Encounter Summary ---
Author Organization [facility] Address [address] [place] [address] Phone Care Team Providers Care Color Maker Formulator Name Role Phone Kemal Land MD Unavailable [phone] Jesu Alonso MD Primary Care Provide r Shiv Gonsalves MD Unavailable [phone] Aly Mims MD Unavailable [phone] Ellen Pickett OD Unavailable [phone] Joseph Jaspermirna Roberson DO Unavailable [phone] Bud Moore MD Unavailable [phone] Aly Chavis MD Unavailable [phone] Maria Luz De La Paz RN Unavailable Unava ilable Encounter Details Date Type Department Care Team (Late st Contact Info) Description 08/01/2025 Results Follow-Up [facility] [address] [place] [address] Medical Office Building [address], [address] [place] [address] Kaylee Peterson PA [address] [place] [address] Portable/Home Sleep Study Social History Tobacco Use Types Packs/Day Years [...] materials from doctor or pharmacy Never 02/09/2024 [facility] Utilities Answer Date Recorded In the past 12 months has [employer], gas, oil, or water [employer] threatened to shut off services in your home? No 03/25/2024 Social Connection and Isolation Panel Answer Date Recorded In a typical week, how many times do you talk on the phone with family, friends, or neighbors? Three times a week 03/25/2024 How often do you get togethe r with friends or relatives? Three times a week 03/25/2024 How often do you attend [facility] or rastafarian services? More than 4 times per year 03/25/2024 Do you belong to any clubs o r organizations such as holiness groups, unions, fraternal or athletic groups, or [...] Date Recorded PHQ-2 Total Score 0 01/18/2024 [facility] - Occupational Stress Questionnaire Answer Date [...] place to sleep or slept in a residential (including now)? No 03/25/2024 Personal Safety Answer [...] as of this encounter Functional Status * Are you deaf or [...] of Assessment Author Yes 03/25/2024 2:44 PM Carolina Waters LCSW documented as of this encounter Mental Status * Because of a physical, mental, or emotional condition, do you have serious difficulty concentrating, remembering, or making decisions? (5 years old or older) Answer Entry Date Author Yes 03/25/2024 2:44 PM Carolina Waters LCSW documented in this encounter Plan of Treatment Scheduled Procedures Name Priority Associated Diagnoses Date/Ti me TRANSPLANT KIDNEY ESRD (end stage renal disease) (HCC) documented as of this encounter Visit Diagnoses Not on filedocumented in this encounter Care Teams Color Maker Formulator Relationship Specialty Start Date End Date Jesu Alonso MD [address] [place] [address] PCP - General 10/19/20 Kemal Land MD [address] [place] [address] Referring Physician Hematology 01/17/19 Shiv Gonsalves MD [address] [place] [address] Consulting Physician Nephrology 01/01/22 Aly Mims MD [address] [place] [address] Surgeon Vascular Surgery 03/15/22 Ellen Pickett OD [address] [place] [address] Referring Physician Optometry 07/25/22 Jasper Ruiz DO [address] [place] [address] Cardiology 06/24/23 Bud Moore MD [address] [place] [address] Consulting Physician Vascular Surgery 07/15/23 Aly Chavis MD [address] [facility] [address] [place] [address] Surgeon Surgery 09/19/23 Maria Luz De La Paz, cloth spongerNetwork Operations Center Technician 10/30/23 documented as of this encounter
--- OUTSIDE RECORDS SUMMARY | 2025-08-10 12:54 | XMS_ITS | Encounter Summary ---
Author Organization [facility] Address [address] [place] [address] Care Team Providers Care Financial Aid Advisor Name Role Phone Kemal Land MD Unavailable Jesu Alonso MD Primary Care Provide r Shiv Gonsalves MD Unavailable [phone] Aly Mims MD Unavailable Ellen Pickett OD Unavailable [phone] Jasper Ruiz DO Unavailable [phone] Bud Moore MD Unavailable [phone] Aly Chavis MD Unavailable [phone] Maria Luz De La Paz RN Unavailable Unava ilable Encounter Details Date Type Department Care Team (Late st Contact Info) Description 06/28/2025 Results Follow-Up [facility] Transplant Kidney [address] [facility] [phone] [place] [address] Shirin Magana RN Hemoglobin A1c, Hepatic function panel, Lipid panel, Additional followed-up results: 3 Social History Tobacco Use Types Packs/Day Years [...] materials from doctor or pharmacy Never 02/09/2024 [facility] Utilities Answer Date Recorded In the past 12 months has e [employer], gas, oil, or water [employer] threatened to shut off services in your home? No 03/25/2024 Social Connection and Isolation Panel Answer Date Recorded In a typical week, how many times do you talk on the phone with family, friends, or neighbors? Three times a week 03/25/2024 How often do you get togethe r with friends or relatives? Three times a week 03/25/2024 How often do you attend [facility] or quaker services? More than 4 times per year 03/25/2024 Do you belong to any clubs o r organizations such as hinduism groups, unions, fraternal or athletic groups, or [...] 0 01/18/2024 [facility] - Occupational Stress [...] place to sleep or slept in a assisted (including now)? No 03/25/2024 Personal Safety Answer [...] 03/25/2024 2:44 PM CDT Carolina Rich LCSW documented as of this encounter Mental Status * Because of a physical, mental, or emotional condition, do you have serious difficulty concentrating, remembering, or making decisions? (5 years old or older) Answer Entry Date Author Yes 03/25/2024 2:44 PM CDT Carolina Rich LCSW documented in this encounter Miscellaneous Notes * Result Encounter Note - Shirin Magana RN - 06/28/2025 7:37 AM CDT Noted FKL 2.4, previous FKL within goal. [employer] message sent to the patient documented in this encounter Plan of Treatment Scheduled Procedures Name Priority Associated Diagnoses Date/Ti me TRANSPLANT KIDNEY ESRD (end stage renal disease) (HCC) documented as of this encounter Visit Diagnoses Not on filedocumented in this encounter Care Teams Financial Aid Advisor Relationship Specialty Start Date End Date Jesu Alonso MD [address] [place] [address] PCP - General 10/19/20 Kemal Land MD [address] [facility] [address] [place] [address] Referring Physician Hematology 01/17/19 Shiv Gonsalves MD [address] [place] [address] Consulting Physician Nephrology 01/01/22 Aly Mims MD [address] [place] [address] Surgeon Vascular Surgery 03/15/22 Ellen Pickett, BREE [address] [place] [address] Referring Physician Optometry 07/25/22 Jasper Ruiz DO [address] [facility] [address] [place] [address] Cardiology 06/24/23 Bud Moore MD [address] [facility] [address] [address] Consulting Physician Vascular Surgery 07/15/23 Aly Chavis MD [address] [facility] [address] [address] Surgeon Surgery 09/19/23 Maria Luz De La Paz, care services managerDirector Child Development Center 10/30/23 documented as of this encounter
--- OUTSIDE RECORDS SUMMARY | 2025-08-10 12:54 | XMS_ITS ---
Author Organization [facility] [place] [address] Address [address] [place] [address] Care Team Providers Care Pool Attendant Name Role Phone Kemal Land MD Unavailable [phone] Jesu Alonso MD Primary Care Provide r Shiv Gonsalves MD Unavailable [phone] Aly Mims MD Unavailable [phone] Ellen Pickett OD Unavailable [phone] [place] Ruiz DO Unavailable [phone] Bud Moore MD Unavailable [phone] Aly Chavis MD Unavailable [phone] Maria Luz De La Paz RN Unavailable Unava ilable Transplant Episode Kidney Recipient [facility] ([place], [place]) - [facility] Organ Received: 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 Marked as Active Follow-up on 10/30/2023 Reason: Transplanted at [facility] Kidney CoordinatorMaria Luz De La Paz RN Phone: N/A Fax: N/A Email: N/A [place] Organ Diagnosis Organ Primary Contributory Kidney Hemolytic Uremic Syndrome Infection History Noted Survival Infection Treatment Organism Resolved 01/17/2024 79 days UTI (urinary tract infection) Donor Information Organ ABO Source Meets Risk Criteria HLA Match Mismatches Cross Match Right Kidney Transplanted O Negative Live A: 1 B: 2 DR: 1 B cell (Negative) T cell (Positive) Right Kidney Donor Serology Results Anti-CMV CMV IgG: Negative EBV IgG EBV VCA IgG: Positive Anti-HBcAb HBC Total: Nonreactive HBsAg HBsAg: Nonreactive HBV DNA HBV DNA: Not Detected Anti-HCV HCV Ab: Nonreactive HCV RNA: Not Detected Anti-HIV I/II HIV Ag/Ab Combo Assay: Nonreactive Anti-HTLV I/II No results on file RPR/VDRL RPR: Nonreactive EBV IgM No results on file HBsAb HBsAb: Nonreacti ve EBNA No results on file SARS CoV-2 No results on file Care Team Name Role Phone Fax Email Maria Luz De La Paz RN Kidney Coordinator N/A N/A N/A Kia [place] Primary Supervisor Plating And Point Assembly N/A N/A N/A Katerin Neri Secondary Supervisor Plating And Point Assembly N/A N/A N/A Nita Little RN Secondary Coordinator [phone] N/A N/A Kylee Acevedo Marketing Assistant [phone] N/A N/A Maria Luz De La Paz RN Rivet Sticker N/A N/A N/A Shiv Gonsalves MD Referring Physician [phone] N/A Events Post-Transplant Pre-Transplant Admitted: 10/30/2023 Referred: 07/09/2018 Transplanted: 10/30/2023 Evaluation began: 9 Discharged: 11/06/2023 Committee: 04/22/2019 UNOS qualified: 01/23/2018 Center waitlisted: 9 Dialysis History Dialysis History Start End Type Comments Center 01/23/2018 10/30/2023 Hemo M/W/F AM [facility] Dialysis Center Information Center Phone Fax Address [facility] [phone] [address] [facility] [address]
--- OUTSIDE RECORDS SUMMARY | 2025-08-10 12:54 | XMS_ITS | Encounter Summary ---
Author Organization [facility] Address [address] [place] [address] Care Team Providers Care Paper Ruler Name Role Phone Jesu Alonso MD Primary Care Provider [phone] Reason for Visit * Reason Onset Date Comments Imaging for review 06/23/2020 Encounter Details Date Type Department Care Team (Late st Contact Info) Description 06/23/2020 Telephone [facility] - [address] [facility] [place] [address] [facility] [address] [place] [address] [place] [address] [facility] [address] [place] [address] Imaging for review Social History Tobacco Use Types Packs/Day Years Used Date Smoking Tobacco: Never Alcohol Use Standard Drinks/Week Comments No 0 (1 standard drink = 0.6 oz pur e alcohol) Sex and Gender Information Value Date Recorded Sex Assigned at Male 09/18/2024 12:16 PM CDT Legal Sex Male 3:26 AM EP TECH Gender Identity Male 09/18/2024 12:16 PM CDT Sexual Orientation Straight 04/26/2025 10 :00 AM CDT COVID-19 Exposure Response Date Recorded In the last month, have you been in contact with someone who was confirmed or suspected to have Coronavirus / COVID-19? No / Unsure 06/08/2020 12:36 PM CDT documented as of this encounter Miscellaneous Notes * Telephone Encounter - Mei Huddleston RN - 06/23/2020 2:37 PM CDT Reports in system for your review Requested imaging disc. 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 Very mild around anal areas only No fevers. Kidney failure - dialysis Instructed pt if symptoms worsen ( increased pain, weakness, n/t, difficulty w/ b/b or he starts running a fever to seek further medical assitance - ER - pt v/u. documented in this encounter Plan of Treatment Upcoming Encounters Date Type Department Care Team (Late st Contact Info) Description 09/15/2025 8:30 AM CDT Office Visit [facility] Oncology and Hematology - [place] [address] [place] [address] Kemal Land MD [address] [facility] [address] [place] [address] documented as of this encounter Visit Diagnoses Not on filedocumented in this encounter Care Teams Paper Ruler Relationship Specialty Start Date End Date Jesu Alonso MD [address] [place] [address] PCP - General Internal Medicine 11/24/19 documented as of this encounter
--- OUTSIDE RECORDS SUMMARY | 2025-08-10 12:54 | XMS_ITS | Clinical Summary ---
Author Organization [facility] Address [address] [place] [address] Phone Care Team Providers Care Manager Environmental Affairs Name Role Phone Unavailable Primary Care Provider Unavailabl e Medications warfarin (COUMADIN) 10 MG tablet TAKE 1 TABLET BY MOUTH 3 TIMES A WEEK (FRI-FRI-FRI) 12 tablet 9 Active furosemide (LASIX) 80 MG tablet Take 80 mg by mouth 2 (two) times a day 1 9 Active mirtazapine (REMERON) 7.5 MG tablet Take 7.5 mg by mouth every night 5 9 Active ZUPLENZ [address] ONE FILM ON THE TONGUE 3 TIMES A DAY IF NEEDED FOR NAUSEA 40 each 3 9 Active midodrine (PROAMATINE) 10 MG tablet TAKE 1 TABLET BY MOUTH THREE TIMES A DAY NEEDED FOR SEVERE HYPOTENSION 270 tablet 3 0 Active lisinopril (PRINIVIL) 10 MG tablet TAKE 1 TABLET BY MOUTH TWICE A DAY 180 tablet 3 1 Active atorvastatin (LIPITOR) 10 MG tablet TAKE 1/2 TABLET BY MOUTH EVERY DAY 45 tablet 3 1 Active Active Problems Problem Noted Date Diagnosed Date 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 Essential (primary) hypertension 01/02/2018 Anemia in chronic kidney disease 01/02/2018 Renal osteodystrophy 01/02/2018 Obesity 01/02/2018 Acute kidney failure 10/11/2017 Other acute kidney failure 10/10/2017 Social History Tobacco Use Types Packs/Day Years Used Date Smoking Tobacco: Never Assessed Sex and Gender Information Value Date Recorded Sex Assigned at Not on file Legal Sex Male 9:42 AM [facility] Gender Identity Male 12/22/2018 9:42 AM MST Sexual Orientation Not on file Last Filed Vital Signs Vital Sign Reading Time Taken Comments Blood Pressure 118/63 01/21/2019 12:01 AM ELECTRIC POWER MACHINE OPERATOR Pulse - - Temperature - - Respiratory Rate - - Oxygen Saturation - - Inhaled Oxygen Concentration - - Weight 127 kg (281 lb) 01/07/2019 12:01 AM ELECTRIC POWER MACHINE OPERATOR Height 185.4 cm (6' 1) 01/21/2019 12:01 AM ELECTRIC POWER MACHINE OPERATOR Body Mass Index 37.07 01/07/2019 12:01 AM ELECTRIC POWER MACHINE OPERATOR Plan of Treatment Health Maintenance Due Date Last Done Comments Influenza Vaccine (#1) 2025
--- OUTSIDE RECORDS SUMMARY | 2025-08-10 12:54 | XMS_ITS | Encounter Summary ---
Author Organization [facility] Care Team Providers Care Industrial Technology Education Teacher Name Role Phone Fito Pena MD Primary Care Provider [phone] Chicho Ram MD Unavailable [phone] Brooke Lawton RN Unavailable [phone] Kemal Land MD Unavailable [phone] Jesu Alonso MD Primary Care Provide r Fito Pena MD Primary Care Provider [phone] Jesu Alonso MD Primary Care Provide r Chicho Ram MD Primary Care Provider [phone] Jesu Alonso MD Primary Care Provide r Shiv Gonsalves MD Unavailable [phone] Aly Mims MD Unavailable [phone] Ellen Pickett OD Unavailable [phone] [place] Ruiz DO Unavailable [phone] Bud Moore MD Unavailable [phone] Aly Chavis MD Unavailable [phone] Maria Luz De La Paz RN Unavailable Unava ilable Encounter Details Date Type Department Care Team (Latest Contact Info) Description 10/26/2018 Orders Only [facility] Provider, MD Aditya [address] [place], [place] [id number] Social History Tobacco Use Types Packs/Day Years [...] Procedure Name Priority Date/Time Associated Diagnosis Comments PROCEDURE - RESULT 10/21/2018 12 :00 AM WASTEWATER TREATMENT SUPERVISOR documented in this encounter Results * PROCEDURE - RESULT (10/21/2018 12:00 AM WASTEWATER TREATMENT SUPERVISOR) Narrative 10/21/2018 12:00 AM WASTEWATER TREATMENT SUPERVISOR Ordered by an unspecified provider. Historical Provider Final Res ult documented in this encounter Visit Diagnoses Not on filedocumented in this encounter Additional Health Concerns Infection Onset Date Last Indicated Resolved Time C. difficile Comment:11/201711/29/2021 REVIEWED AND RESOLVED. NO ACTIVE MEDS RELATED TO C-DIFF AND PER RN IN ED PT NOT HAVING ANY DIARRHEA. 09/09/2018 09/08/2018 11/29/2021 12:41 PM WASTEWATER TREATMENT SUPERVISOR COVID: Suspected 11/09/2023 11/09/2023 11/09/2023 1:06 PM WASTEWATER TREATMENT SUPERVISOR COVID: Suspected 01/16/2024 01/16/2024 01/16/2024 3:33 PM WASTEWATER TREATMENT SUPERVISOR Rhino/Enterovirus 01/16/2024 01/16/2024 01/23/2024 3:08 AM WASTEWATER TREATMENT SUPERVISOR documented as of this encounter Care Teams Industrial Technology Education Teacher Relationship Specialty Start Date End Date Fito Pena MD PCP - General Emergency Medicine 05/28/18 08/23/19 Jesu Alonso MD [address] [place] [address] PCP - General 08/24/19 08/31/19 Fito Pena MD [address] [place] [address] PCP - General 09/01/19 09/24/19 Jesu Alonso MD [address] [place] [address] PCP - General 09/25/19 10/10/20 Chicho Ram MD PCP - General 10/11/20 10/18/20 Jesu Alonso MD [address] [place] [address] PCP - General 10/19/20 Chicho Ram MD Referring Physician Nephrology 09/08/18 12/31/21 Brooke Lawton, RN [address] [address] Registered Nurse 09/15/18 10/30/23 Kemal Land MD [address] [address] Referring Physician Hematology 01/17/19 Shiv Gonsalves MD [address] [place] [address] Consulting Physician Nephrology 01/01/22 Aly Mims MD [address] [place] [address] Surgeon Vascular Surgery 03/15/22 Ellen Pickett OD [address] [place] [address] Referring Physician Optometry 07/25/22 [place] Ruiz DO [address] [place] [address] Cardiology 06/24/23 Bud Moore MD [address] [facility] [address] [place] [address] Consulting Physician Vascular Surgery 07/15/23 Aly Chavis MD [address] [facility] [address] [place] [address] Surgeon Surgery 09/19/23 Maria Luz De La Paz, identification printing machine setterGuest House Manager 10/30/23 documented as of this encounter
--- OUTSIDE RECORDS SUMMARY | 2025-08-10 12:54 | XMS_ITS ---
Author Organization [facility] Address [address] [place] [address] Care Team Providers Care Automotive Refinisher Name Role Phone Unavailable Unavailable Unavailable Allergies, Adverse Reactions, Alerts This patient has no known allergies or adverse reactions. Problems This patient has no known problems. Immunizations Ordered Immunization Name Filled Immunization Name Date Status Comments Refusal Reason Covid-19 Vaccination 2021-01-20 08:00:00
--- OUTSIDE RECORDS SUMMARY | 2025-08-10 12:54 | XMS_ITS | Encounter Summary ---
Author Organization [facility] Address [address] [place] [address] Care Team Providers Care Molding And Trim Installer Name Role Phone Jesu Alonso MD Primary Care Provider [phone] Reason for Visit * Reason Comments Medication Refill Encounter Details Date Type Department Care Team (Late st Contact Info) Description 12/16/2021 Refill [facility] Oncology and Hematology - [place] [address] [facility] [address] [place] [address] Kemal Land MD [address] [facility] [address] [place] [address] 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 (CMS/HCC) Social History Tobacco Use Types Packs/Day Years Used Date Smoking Tobacco: Never Alcohol Use Standard Drinks/Week Comments No 0 (1 standard drink = 0.6 oz pur e alcohol) Sex and Gender Information Value Date Recorded Sex Assigned at Male 09/18/2024 12:16 PM CDT Legal Sex Male 3:26 AM DIRECTOR OF ADULT EPILEPSY Gender Identity Male 09/18/2024 12:16 PM CDT Sexual Orientation Straight 04/26/2025 10 :00 AM CDT documented as of this encounter Plan of Treatment Upcoming Encounters Date Type Department Care Team (Late st Contact Info) Description 09/15/2025 8:30 AM CDT Office Visit [facility] Oncology and Hematology - [place] [address] [place] [address] Kemal Land MD [address] [facility] [address] [place] [address] documented as of this encounter Visit Diagnoses Diagnosis 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
--- NOTE | 2025-08-10 13:25 | ECG_ITS ---
Test Date: 2025-08-10 13:43:30 Measurements Intervals [place] Rate: 74 P: 49 ID: [id number] QRS: 35 QRSD: 102 T: 192 QT: 408 QTc: 453 Interpretive Statements SINUS RHYTHM ST AND T-WAVE ABNORMALITY CONSIDER ANTERIOR INJURY OR ISCHEMIA ABNORMAL ECG NO PRIOR ECG AVAILABLE FOR COMPARISON No previous ECG available for comparison Electronically Signed On 08-11-2025 16:27:57 CDT by Jesu Victoria M.D.
--- OUTSIDE RECORDS SUMMARY | 2025-08-10 13:41 | XMS_ITS | Encounter Summary ---
Author Organization [facility] Address [address] [place] [address] Care Team Providers Care Cured Meats Supervisor Name Role Phone Chicho Ram MD Unavailable [phone] Brooke Lawton RN Unavailable Kemal Land MD Unavailable [phone] Jesu Alonso MD Primary Care Provide r Shiv Gonsalves MD Unavailable [phone] Aly Mims MD Unavailable Ellen Pickett OD Unavailable [phone] [place] Ruiz DO Unavailable [phone] Bud Moore MD Unavailable [phone] Aly Chavis MD Unavailable [phone] Maria Luz De La Paz RN Unavailable Unava ilable Encounter Details Date Type Department Care Team (Late st Contact Info) Description 03/16/[address] [facility] Radiology [address] [facility] [place] [address] Serge Wilkerson, [place] [address] [place] [address] Social History Tobacco Use Types Packs/Day Years [...] than three times a week 11/20/2019 Attends Orthodox Services Not on file 11/20 Active Member [...] ANY DIARRHEA. 09/09/2018 09/08/2018 11/29/2021 12:41 PM WATERPROOFING MIXER COVID: Suspected 11/09/2023 11/09/2023 11/09/2023 1:06 PM WATERPROOFING MIXER COVID: Suspected 01/16/2024 01/16/2024 01/16/2024 3:33 PM WATERPROOFING MIXER Rhino/Enterovirus 01/16/2024 01/16/2024 01/23/2024 3:08 AM WATERPROOFING MIXER documented as of this encounter Care Teams Cured Meats Supervisor Relationship Specialty Start Date End Date Jesu Alonso MD [address] [place] [address] PCP - General 10/19/20 Chicho Ram MD Referring Physician Nephrology 09/08/18 12/31/21 Brooke Lawton, RN [address] [address] Registered Nurse 09/15/18 10/30/23 Kemal Land MD [address] [place] [address] Referring Physician Hematology 01/17/19 Shiv Gonsalves MD [address] [place] [address] Consulting Physician Nephrology 01/01/22 Aly Mims MD [address] [place] [address] Surgeon Vascular Surgery 03/15/22 Ellen Pickett OD [address] [place] [address] Referring Physician Optometry 07/25/22 [place] Ruiz DO [address] [place] [address] Cardiology 06/24/23 Bud Moore MD [address] [facility] [address] [place] [address] Consulting Physician Vascular Surgery 07/15/23 Aly Chavis MD [address] [facility] [address] [place] [address] Surgeon Surgery 09/19/23 Maria Luz De La Paz, manager wirelessParalegal Supervisor 10/30/23 documented as of this encounter
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
--- OUTSIDE RECORDS SUMMARY | 2025-08-10 13:41 | XMS_ITS | Encounter Summary ---
Author Organization [facility] Facility Care Team Providers Care Horticulture/Floriculture Teacher Name Role Phone Fito Pena MD Primary Care Provider [phone] Chicho Ram MD Unavailable [phone] Brooke Lawton RN Unavailable [phone] Kemal Land MD Unavailable [phone] Jesu Alonso MD Primary Care Provide r Fito Pena MD Primary Care Provider [phone] Jesu Alonso MD Primary Care Provide r Chicho Ram MD Primary Care Provider [phone] Jesu Alonso MD Primary Care Provide r Shiv Gonsalves MD Unavailable [phone] Aly Mims MD Unavailable [phone] Ellen Pickett OD Unavailable [phone] Jasper Ruiz DO Unavailable Bud Moore MD Unavailable [phone] Aly Chavis MD Unavailable [phone] Maria Luz De La Paz RN Unavailable Unava ilable Encounter Details Date Type Department Care Team (Latest Contact Info) Description 10/26/2018 Orders Only [facility] CLINCONV Provider, MD Aditya [address] [place], [place] [id number] Social History Tobacco Use Types Packs/Day Years [...] PROCEDURE - RESULT 10/21/2018 12 :00 AM VOLUNTEER ASSISTANT documented in this encounter Results * PROCEDURE - RESULT (10/21/2018 12:00 AM VOLUNTEER ASSISTANT) Narrative 10/21/2018 12:00 AM VOLUNTEER ASSISTANT Ordered by an unspecified provider. Historical Provider Final Res ult documented in this encounter Visit Diagnoses Not on filedocumented in this encounter Additional Health Concerns Infection Onset Date Last Indicated Resolved Time C. difficile Comment:11/201711/29/2021 REVIEWED AND RESOLVED. NO ACTIVE MEDS RELATED TO C-DIFF AND PER RN IN ED PT NOT HAVING ANY DIARRHEA. 09/09/2018 09/08/2018 11/29/2021 12:41 PM VOLUNTEER ASSISTANT COVID: Suspected 11/09/2023 11/09/2023 11/09/2023 1:06 PM VOLUNTEER ASSISTANT COVID: Suspected 01/16/2024 01/16/2024 01/16/2024 3:33 PM VOLUNTEER ASSISTANT Rhino/Enterovirus 01/16/2024 01/16/2024 01/23/2024 3:08 AM VOLUNTEER ASSISTANT documented as of this encounter Care Teams Horticulture/Floriculture Teacher Relationship Specialty Start Date End Date Fito Pena MD PCP - General Emergency Medicine 05/28/18 08/23/19 Jesu Alonso MD [address] [place] [address] PCP - General 08/24/19 08/31/19 Fito Pena MD [address] [place] [address] PCP - General 09/01/19 09/24/19 Jesu Alonso MD [address] [place] [address] PCP - General 09/25/19 10/10/20 Chicho Ram MD PCP - General 10/11/20 10/18/20 Jesu Alonso MD [address] [place] [address] PCP - General 10/19/20 Chicho Ram MD Referring Physician Nephrology 09/08/18 12/31/21 Brooke Lawton, RN [address] [address] Registered Nurse 09/15/18 10/30/23 Kemal Land MD [address] [address] Referring Physician Hematology 01/17/19 Shiv Gonsalves MD [address] [place] [address] Consulting Physician Nephrology 01/01/22 Aly Mims MD [address] [place] [address] Surgeon Vascular Surgery 03/15/22 Ellen Pickett OD [address] [place] [address] Referring Physician Optometry 07/25/22 Jasper Ruiz DO [address] [place] [address] Cardiology 06/24/23 Bud Moore MD [address] [facility] [address] [place] [address] Consulting Physician Vascular Surgery 07/15/23 Aly Chavis MD [address] [facility] [address] [place] [address] [address] [place] [address] Surgeon Surgery 09/19/23 Maria Luz De La Paz, information security architectSafety Engineer Pressure Vessels 10/30/23 documented as of this encounter
--- OUTSIDE RECORDS SUMMARY | 2025-08-10 13:41 | XMS_ITS | Clinical Summary ---
Author Organization [facility] Address [address] [place] [address] Phone Care Team Providers Care Freight Tallier Name Role Phone Unavailable Primary Care Provider [...] on file Legal Sex Male 9:42 AM [facility] Gender Identity Male 12/22/2018 9:42 AM MST Sexual Orientation Not on file Last Filed Vital Signs Vital Sign Reading Time Taken Comments Blood Pressure 118/63 01/21/2019 12:01 AM LIGHTING ENGINEER Pulse - - Temperature - - Respiratory Rate - - Oxygen Saturation - - Inhaled Oxygen Concentration - - Weight 127 kg (281 lb) 01/07/2019 12:01 AM LIGHTING ENGINEER Height 185.4 cm (6' 1) 01/21/2019 12:01 AM LIGHTING ENGINEER Body Mass Index 37.07 01/07/2019 12:01 AM LIGHTING ENGINEER Plan of Treatment Health Maintenance Due Date Last Done Comments Influenza Vaccine (#1) 2025
--- OUTSIDE RECORDS SUMMARY | 2025-08-10 13:41 | XMS_ITS | Encounter Summary ---
Author Organization [facility] Address [address] [place] [address] Care Team Providers Care Can Feeder Name Role Phone Jesu Alonso MD Primary Care Provider [phone] Encounter Details Date Type Department Care Team (Late st Contact Info) Description 02/01/1999 Outpatient Historical [facility] [address] [facility] [address] [place] [address] [place] [address] [facility] [address] [place] [address] Social History Tobacco Use Types Packs/Day Years Used Date Smoking Tobacco: Never Assessed Sex and Gender Information Value Date Recorded Sex Assigned at Male 09/18/2024 12:16 PM CDT Legal Sex Male 3:26 AM DIAGNOSTIC CARDIAC SONOGRAPHER Gender Identity Male 09/18/2024 12:16 PM CDT Sexual Orientation Straight 04/26/2025 10 :00 AM CDT documented as of this encounter Plan of Treatment Upcoming Encounters Date Type Department Care Team (Late st Contact Info) Description 09/15/2025 8:30 AM CDT Office Visit [facility] Oncology and Hematology - [place] [address] [facility] [address] [address] Kemal Land MD [address] [facility] [address] [place] [address] documented as of this encounter Visit Diagnoses Not on filedocumented in this encounter Care Teams Can Feeder Relationship Specialty Start Date End Date Jesu Alonso MD [address] [address] [place] [address] PCP - General Internal Medicine 11/24/19 documented as of this encounter
--- OUTSIDE RECORDS SUMMARY | 2025-08-10 13:41 | XMS_ITS | Clinical Summary ---
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 Consulting Physician Vascular Surgery 07/15/23 Aly Chavis MD [address] [facility] [place] [place] [address] [place] [address] Surgeon Surgery 09/19/23 Maria Luz De La Paz, supply chain internKitchen Utility Associate 10/30/23
--- OUTSIDE RECORDS SUMMARY | 2025-08-10 13:41 | XMS_ITS | Encounter Summary ---
Author Organization [facility] Address [address], [place] [address] Phone Care Team Providers Care Perennial House Manager Name Role Phone Unavailable Primary Care Provider Unavailabl e Reason for Visit * Reason Comments Med Refill Encounter Details Date Type Department Care Team (Late st Contact Info) Description 10/04/2020 Refill [facility] Nephrology and Hypertension [address] [place] [address], [address] [place] [address] Mason [place] MD [address] [facility], [address] [place] [address] Social History Tobacco Use Types Packs/Day Years Used Date Smoking Tobacco: Never Assessed Sex and Gender Information Value Date Recorded Sex Assigned at Not on file Legal Sex Male 9:42 AM [facility] Gender Identity Male 12/22/2018 9:42 AM [facility] Sexual Orientation Not on file documented as of this encounter Plan of Treatment Not on file documented as of this encounter Visit Diagnoses Not on filedocumented in this encounter
--- OUTSIDE RECORDS SUMMARY | 2025-08-10 13:41 | XMS_ITS | Clinical Summary ---
Author Organization [facility] Address [address] [place] [address] Care Team Providers Care Professor Of Music Name Role Phone Fito Pena MD Primary Care Provider [phone] [facility],non-owned Affiliates and Associated Physician Practices is amultiple site organization consisting of ambulatory clinics and hospital sitesin [place], [place], [place] and [place]. This disclosure is being madepursuant to the Care Everywhere program and may not contain all information available regarding this patient. Last updated 18.[facility] [employer] Allergies Active Allergy Reactions Criticality Noted Date Comments Phdqwsac-Sxlgxukqvh-Zsela yxin Rash Medium 06/18/2018 THIS IS TO [...] 6 hours as needed 8 Active B Mxqrcnf-U-Tucp c Acid (RENAL VITAMIN PO) TAKE ONE [...] patient's age to complete this topic [place] [address] [place] [address] Care Teams Professor Of Music Relationship Specialty Start Date End Date Fito Pena MD [address] [place] [address] 3 [place] [address] PCP - General Family Medicine 05/27/18
--- OUTSIDE RECORDS SUMMARY | 2025-08-10 13:41 | XMS_ITS | Encounter Summary ---
Author Organization [facility] Address [address] [place] [address] Care Team Providers Care Inker Machine Name Role Phone Jesu Alonso MD Primary Care Provider [phone] Reason for Visit * Reason Comments Medication Refill Encounter Details Date Type Department Care Team (Late st Contact Info) Description 12/16/[address] [facility] Oncology and Hematology - [place] [address] [facility] [address] [place] [address] Kemal Land MD [address] [facility] [address] [place] [address] Chronic venous embolism and thrombosis [...] PM CDT Legal Sex Male 3:26 AM HEEL BLACKER Gender Identity Male 09/18/2024 12:16 PM CDT Sexual Orientation Straight 04/26/2025 10 :00 AM CDT documented as of this encounter Plan of Treatment Upcoming Encounters Date Type Department Care Team (Late st Contact Info) Description 09/15/2025 8:30 AM CDT Office Visit 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
--- OUTSIDE RECORDS SUMMARY | 2025-08-10 13:41 | XMS_ITS | Encounter Summary ---
Author Organization [facility] Address [address] [place] [address] Care Team Providers Care Auditor Tax Name Role Phone Jesu Alonso MD Primary Care Provider [phone] Encounter Details Date Type Department Care Team (Late st Contact Info) Description 02/01/1999 Outpatient Historical [facility] [address] [facility] [address] [place] [address] [place] [address] [facility] [address] [place] [address] Social History Tobacco Use Types Packs/Day Years Used Date Smoking Tobacco: Never Assessed Sex and Gender Information Value Date Recorded Sex Assigned at Male 09/18/2024 12:16 PM CDT Legal Sex Male 3:26 AM SUPERVISOR MAPPING Gender Identity Male 09/18/2024 12:16 PM CDT Sexual Orientation Straight 04/26/2025 10 :00 AM CDT documented as of this encounter Plan of Treatment Upcoming Encounters Date Type Department Care Team (Late st Contact Info) Description 09/15/2025 8:30 AM CDT Office Visit [facility] Oncology and Hematology - [place] [address] [facility] [address] [address] Kemal Land MD [address] [facility] [address] [place] [address] documented as of this encounter Visit Diagnoses Not on filedocumented in this encounter Care Teams Auditor Tax Relationship Specialty Start Date End Date Jesu Alonso MD [address] [facility] 2 [place] [address] PCP - General Internal Medicine 11/24/19 documented as of this encounter
--- OUTSIDE RECORDS SUMMARY | 2025-08-10 13:41 | XMS_ITS | Clinical Summary ---
Author Organization [facility] Address [address] [place] [address] Phone Care Team Providers Care Insulation Inspector Name Role Phone Jesu Alonso MD Primary [...] Low 02/01/2021 Hydrocortisone-Acetic Acid Rash Medium 07/18/2020 Yytaf-Rkycr-Sedacsi-Pram oxine Rash Low 02/01/2021 Neomycin Rash Medium 06/18/2018 THIS IS TO ALL TOPICAL OINTMENTS THIS IS TO ALL TOPICAL OINTMENTS Wusvwaua-Krqohjdazy-Xint myxin Rash Medium 07/18/2020 Qoqixjrf-Pijuxkavnic-Jno ymyxnb Rash Medium 06/18/2018 THIS IS TO [...] Department Care Team Description 08/08/[address] [facility] Oncology and Hematology - [place] [address] [place] [id number] Kemal Land MD Malignant neoplasm of lung, unspecified laterality, unspecified part of lung (CMS/HCC) 08/02/2025 External Device Data STL ABSTRACTION Provider, Abstract 08/01/[address] [facility] Oncology and Hematology - [place] [address] [place] [address] Keaml Land MD Malignant neoplasm of lung, unspecified laterality, unspecified part of lung (CMS/HCC) 07/25/[address] [facility] Oncology and Hematology - [place] [address] [place] [address] Kemal Land MD Malignant neoplasm of lung, unspecified laterality, unspecified part of lung (CMS/HCC); Chronic anemia 07/22/[address] [facility] Oncology and Hematology - [place] [address] [place] [address] Kemal Land MD 07/20/[address] [facility] Oncology and Hematology - [place] [address] [place] [address] Kemal Land MD Malignant neoplasm of lung, unspecified laterality, unspecified part of lung (CMS/HCC) (Primary Dx) 07/19/2025 External Device Data STL ABSTRACTION Provider, Abstract 07/11/[address] [facility] Oncology and Hematology - [place] [address] Kemal Land MD Malignant neoplasm of lung, unspecified laterality, unspecified part of lung ([facility]/HCC); Chronic anemia 07/05/2025 External Device Data STL ABSTRACTION Provider, Abstract 06/27/[address] [facility] Oncology and Hematology - [place] [address] [place] [address] Kemal Land MD Malignant neoplasm of lung, unspecified laterality, unspecified part of lung ([facility]/HCC); Chronic anemia 06/22/2025 External Device Data STL ABSTRACTION Provider, Abstract 06/21/2025 External Device Data STL ABSTRACTION Provider, Abstract 06/13/[address] [facility] Oncology and Hematology - [place] [address] [place] [id number] Kemal Land MD Malignant neoplasm of lung, unspecified laterality, unspecified part of lung ([facility]/HCC); Chronic anemia 06/01/2025 External Device Data STL ABSTRACTION Provider, Abstract 05/31/2025 External Device Data STL ABSTRACTION Provider, Abstract 05/30/[address] [facility] Oncology and Hematology - [place] [address] [place] [address] Kemal Land MD Malignant neoplasm of lung, unspecified laterality, unspecified part of lung ([facility]/HCC); Chronic anemia 05/24/2025 External Device Data STL ABSTRACTION Provider, Abstract 05/18/[address] [facility] Oncology and Hematology - [place] [address] [place] [address] Kemal Land MD 05/17/2025 8:30 AM CDT Office Visit [facility] Oncology and Hematology - [place] [address] [place] [address] Kemal Land MD Hemolytic-uremic syndrome, unspecified subtype (CMS/HCC) (Primary Dx); Deep vein thrombosis (DVT) of other vein of both lower extremities, unspecified chronicity (CMS/HCC) 05/16/[address] [facility] Oncology and Hematology [facility] [address] [place] [address] Kemal Land MD Malignant neoplasm of lung, unspecified laterality, unspecified part of lung ([facility]/HCC); Chronic anemia 05/12/[address] [facility] Oncology and Hematology [facility] [address] [place] [address] Kemal Land MD 05/10/2025 External Device Data STL ABSTRACTION Provider, Abstract 05/10/[address] [facility] Oncology [facility] Hematology [facility] [address] [place] [address] Kemal Land MD from Last 3 Months Immunizations Immunization Administration Dates Next Due ([employer]) COVID-19 VACCINE - EMERGENCY USE AUTHORIZATION, AD26,COV2S(PF) [...] PM CDT Legal Sex Male 3:26 AM MANAGER READING Gender Identity Male 09/18/2024 12:16 PM CDT [...] 09/15/2025 8:30 AM CDT Office Visit [facility] Oncology and Hematology - [place] [address] [facility] [address] [place] [address] Kemal Land MD [address] [facility] [address] [place] [address] Health Maintenance Due Date Last [...] 3 Months Insurance MEDICAID [place] Care Teams Insulation Inspector Relationship Specialty Start Date End Date Jesu Alonso MD [address] [place] [address] PCP - General Internal Medicine 11/24/19
--- OUTSIDE RECORDS SUMMARY | 2025-08-10 13:41 | XMS_ITS | Encounter Summary ---
Author Organization [facility] Address [address] [place] [address] Care Team Providers Care Environmental Issues Instructor Name Role Phone Jesu Alonso MD Primary Care Provider [phone] Encounter Details Date Type Department Care Team (Late st Contact Info) Description 02/01/1999 Outpatient Historical [facility] [address] [facility] [address] [place] [address] [place] [address] [facility] [address] [place] [address] Social History Tobacco Use Types Packs/Day Years Used Date Smoking Tobacco: Never Assessed Sex and Gender Information Value Date Recorded Sex Assigned at Male 09/18/2024 12:16 PM CDT Legal Sex Male 3:26 AM MUSIC EXECUTIVE Gender Identity Male 09/18/2024 12:16 PM CDT Sexual Orientation Straight 04/26/2025 10 :00 AM CDT documented as of this encounter Plan of Treatment Upcoming Encounters Date Type Department Care Team (Late st Contact Info) Description 09/15/2025 8:30 AM CDT Office Visit [facility] Oncology and Hematology - [place] [address] [facility] [address] [address] Kemal Land MD [address] [facility] [address] [place] [address] documented as of this encounter Visit Diagnoses Not on filedocumented in this encounter Care Teams Environmental Issues Instructor Relationship Specialty Start Date End Date Jesu Alonso MD [address] [facility] 2 [place] [address] PCP - General Internal Medicine 11/24/19 documented as of this encounter
--- OUTSIDE RECORDS SUMMARY | 2025-08-10 13:41 | XMS_ITS | Encounter Summary ---
Author Organization [facility] [employer] [facility] Address [address] [place] [address] Care Team Providers Care Viscose Cellar Worker Name Role Phone Jesu Alonso MD Primary Care Provider Encounter Details Date Type Department Care Team (Late st Contact Info) Description 08/08/2025 Orders Only [facility] Oncology and Hematology - [place] [address] [facility] [address] [place] [address] Kemal Land MD [address] [facility] [address] [place] [address] Malignant neoplasm of lung, unspecified laterality, unspecified part of lung (CMS/HCC) Social History Tobacco Use Types Packs/Day Years Used Date Smoking Tobacco: Never Alcohol Use Standard Drinks/Week Comments No 0 (1 standard drink = 0.6 oz pur e alcohol) Sex and Gender Information Value Date Recorded Sex Assigned at Male 09/18/2024 12:16 PM CDT Legal Sex Male 3:26 AM RETAIL TRAINING MANAGER Gender Identity Male 09/18/2024 12:16 PM CDT Sexual Orientation Straight 04/26/2025 10 :00 AM CDT documented as of this encounter Plan of Treatment Upcoming Encounters Date Type Department Care Team (Late st Contact Info) Description 09/15/2025 8:30 AM CDT Office Visit [facility] Oncology and Hematology [facility] [address] [facility] [address] [place] [address] Kemal Land MD [address] [facility] [address] [place] [address] documented as of this encounter Visit Diagnoses Diagnosis Malignant neoplasm of lung, unspecified laterality, unspecified part of lung (CMS/HCC) documented in this encounter Care Teams Viscose Cellar Worker Relationship Specialty Start Date End Date Jesu Alonso MD [address] [facility] [address] [place] [address] PCP - General Internal Medicine 11/24/19 documented as of this encounter
--- OUTSIDE RECORDS SUMMARY | 2025-08-10 13:41 | XMS_ITS | Encounter Summary ---
Author Organization [facility] Address [address] [place] [address] Care Team Providers Care Senior Education Specialist Name Role Phone Jesu Aolnso MD Primary Care Provider [phone] Encounter Details Date Type Department Care Team (Late st Contact Info) Description 06/01/1999 Outpatient Historical [facility] [address] [facility] [address] [place] [address] [place] [address] [facility] [address] [place] [address] Social History Tobacco Use Types Packs/Day Years Used Date Smoking Tobacco: Never Assessed Sex and Gender Information Value Date Recorded Sex Assigned at Male 09/18/2024 12:16 PM CDT Legal Sex Male 3:26 AM SECTION GANG WORKER Gender Identity Male 09/18/2024 12:16 PM CDT Sexual Orientation Straight 04/26/2025 10 :00 AM CDT documented as of this encounter Plan of Treatment Upcoming Encounters Date Type Department Care Team (Late st Contact Info) Description 09/15/2025 8:30 AM CDT Office Visit [facility] Oncology and Hematology - [place] [address] [facility] [address] [address] Kemal Land MD [address] [facility] [address] [place] [address] documented as of this encounter Visit Diagnoses Not on filedocumented in this encounter Care Teams Senior Education Specialist Relationship Specialty Start Date End Date Jesu Alonso MD [address] [facility] 2 [place] [address] PCP - General Internal Medicine 11/24/19 documented as of this encounter
--- OUTSIDE RECORDS SUMMARY | 2025-08-10 13:41 | XMS_ITS ---
Author Organization [facility] [address] Address [address] [place] [address] Care Team Providers Care Pile Trimmer Name Role Phone Kemal Land MD Unavailable [phone] Jesu Alonso MD Primary Care Provide r Shiv Gonsalves MD Unavailable [phone] Aly Mims MD Unavailable [phone] Ellen Pickett OD Unavailable [phone] Jasper Ruiz DO Unavailable [phone] Bud [place] MD Unavailable [phone] Aly Chavis MD Unavailable [phone] Maria Luz De La Paz RN Unavailable Unava ilable Transplant Episode Kidney Recipient [facility] ([place], [place]) - [facility] Organ Received: 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 Marked as Active Follow-up on 10/30/2023 Reason: [facility]ed at [facility] Kidney CoordinatorMaria Luz De La Paz RN Phone: N/A Fax: N/A Email: N/A [place] Organ Diagnosis Organ Primary Contributory Kidney Hemolytic [...] Coordinator N/A N/A N/A Kia Kasper Primary Cone Classifier Tender N/A N/A N/A Katerin Neri Secondary Cone Classifier Tender N/A N/A N/A Nita Little RN Secondary Coordinator [phone] N/A N/A Kylee Acevedo Regulatory Compliance Engineer [phone] N/A N/A Maria Luz De La Paz RN Checker/Stocker N/A N/A N/A Shiv Gonsalves MD Referring Physician [phone] N/A Events Post-Transplant Pre-Transplant Admitted: 10/30/2023 Referred: 07/09/2018 Transplanted: 10/30/2023 Evaluation began: 9 Discharged: 11/06/2023 Committee: 04/22/2019 UNOS qualified: 01/23/2018 Center waitlisted: 9 Dialysis History Dialysis History Start End Type Comments Center 01/23/2018 10/30/2023 Hemo M/W/F AM [facility] Dialysis Center Information Center Phone Fax Address [facility] [phone] [address] [facility] [address]
--- OUTSIDE RECORDS SUMMARY | 2025-08-10 13:41 | XMS_ITS | Encounter Summary ---
Author Organization [facility] Address [address] [place] [address] Care Team Providers Care Branch Sales Manager Name Role Phone Brooke Lawton RN Unavailable Kemal Land MD Unavailable [phone] Jesu Alonso MD Primary Care Provide r Shiv Gonsalves MD Unavailable [phone] Aly Mims MD Unavailable Ellen Pickett OD Unavailable [phone] Joseph Jasper Roberson Unavailable [phone] Bud Moore MD Unavailable [phone] Aly Chavis MD Unavailable [phone] Maria Luz De La Paz RN Unavailable Unava ilable Encounter Details Date Type Department Care Team (Late st Contact Info) Description 09/22/2023 Telephone [facility] [address] [facility] [address] [place] [address] Aly Chavis MD [address] [facility] [address] [place] [address] Social History Tobacco Use Types Packs/Day Years [...] often do you attend chur ch or congregation services? Never 07/14/2023 Do you belong to [...] COVID: Suspected 11/09/2023 11/09/2023 11/09/2023 1:06 PM RADIO SALES ACCOUNT EXECUTIVE COVID: Suspected 01/16/2024 01/16/2024 01/16/2024 3:33 PM RADIO SALES ACCOUNT EXECUTIVE Rhino/Enterovirus 01/16/2024 01/16/2024 01/23/2024 3:08 AM RADIO SALES ACCOUNT EXECUTIVE documented as of this encounter Care Teams Branch Sales Manager Relationship Specialty Start Date End Date Jesu Alonso MD [address] [place] [address] PCP - General 10/19/20 Brooke [place], RN [address] [address] Registered Nurse 09/15/18 10/30/23 Kemal Land MD [address] [place] [address] Referring Physician Hematology 01/17/19 Shiv Gonsalves MD [address] [place] [address] Consulting Physician Nephrology 01/01/22 Aly Mims MD [address] [place] [address] Surgeon Vascular Surgery 03/15/22 Ellen Pickett OD [address] [place] [address] Referring Physician Optometry 07/25/22 Jasper Ruiz DO [address] [place] [address] Cardiology 06/24/23 Bud [place] MD [address] [facility] [address] [place] [address] Consulting Physician Vascular Surgery 07/15/23 Aly Chavis MD [address] [facility] [address] [facility] [address] [place] [address] Surgeon Surgery 09/19/23 Maria Luz De La Paz, feeder catcher tobaccoIndustrial Hygiene Manager 10/30/23 documented as of this encounter
--- OUTSIDE RECORDS SUMMARY | 2025-08-10 13:41 | XMS_ITS | Encounter Summary ---
Author Organization [facility] Healthcare Address [address] [place] [address] Care Team Providers Care Orthopedic Surgeon Name Role Phone Brooke Lawton RN Unavailable Kemal Land MD Unavailable [phone] Jesu Alonso MD Primary Care Provide r Shiv Gonsalves MD Unavailable [phone] Aly Mims MD Unavailable Ellen [place] OD Unavailable [phone] Joseph Jasper Roberson Unavailable [phone] Bud [place] MD Unavailable [phone] Aly Chavis MD Unavailable [phone] Maria Luz De La Paz RN Unavailable Unava ilable Encounter Details Date Type Department Care Team (Late st Contact Info) Description 08/05/2023 Telephone [facility] at [facility] [address] [facility] [address] [place] [address] Jignesh Chavis MD [address] [facility] [address] [place] [address] Social History Tobacco Use Types Packs/Day Years [...] How often do you attend chur or congregational services? Never 07/14/2023 Do you belong to any clubs o r organizations such as anabaptist groups, unions, fraternal or athletic groups, or [...] place to sleep or slept in a skilled nursing (including now)? No 07/14/2023 Sex and Gender [...] COVID: Suspected 11/09/2023 11/09/2023 11/09/2023 1:06 PM WINCH STRIPPER COVID: Suspected 01/16/2024 01/16/2024 01/16/2024 3:33 PM WINCH STRIPPER Rhino/Enterovirus 01/16/2024 01/16/2024 01/23/2024 3:08 AM WINCH STRIPPER documented as of this encounter Care Teams Orthopedic Surgeon Relationship Specialty Start Date End Date Jesu Alonso MD [address] [place] [address] PCP - General 10/19/20 Brooke Lawton, RN [address] [address] Registered Nurse 09/15/18 10/30/23 Kemal Land MD [address] [place] [address] Referring Physician Hematology 01/17/19 Shiv Gonsalves MD [address] [place] [address] Consulting Physician Nephrology 01/01/22 Aly Mims MD [address] [place] [address] Surgeon Vascular Surgery 03/15/22 Ellen [place], BREE [address] [place] [address] Referring Physician Optometry 07/25/22 Jasper Ruiz DO [address] [place] [address] Cardiology 06/24/23 Bud [place] MD [address] [facility] [address] [place] [address] Consulting Physician Vascular Surgery 07/15/23 Aly Chavis MD [address] [facility] [address] [facility] [address] [place] [address] Surgeon Surgery 09/19/23 Maria Luz De La Paz, tax assessorSenior Portfolio Analyst 10/30/23 documented as of this encounter
--- OUTSIDE RECORDS SUMMARY | 2025-08-10 13:41 | XMS_ITS | Encounter Summary ---
Author Organization [facility] Address [address] [place] [address] Phone Care Team Providers Care Welfare Adviser Name Role Phone Kemal Land MD Unavailable [phone] Jesu Alonso MD Primary Care Provide r Shiv Gonsalves MD Unavailable [phone] Aly Mims MD Unavailable [phone] Ellen [place] OD Unavailable [phone] Joseph Jaspermirna Roberson DO Unavailable [phone] Bud Moore MD Unavailable [phone] Aly Chavis MD Unavailable [phone] Maria Luz De La Paz RN Unavailable Unava ilable Encounter Details Date Type Department Care Team (Late st Contact Info) Description 08/01/2025 Results Follow-Up [facility] Metabolic Weight Management [address] [place] [address] Medical Office Building [address], [address] [place] [address] Kaylee Peterson PA [address] [place] [address] Portable/Home Sleep Study Social History Tobacco Use [...] materials from doctor or pharmacy Never 02/09/2024 [facility] Utilities Answer Date Recorded In the past 12 months has [employer], gas, oil, or water [employer] threatened to shut off services in your home? No 03/25/2024 Social Connection and Isolation Panel Answer Date Recorded In a typical week, how many times do you talk on the phone with family, friends, or neighbors? Three times a week 03/25/2024 How often do you get togethe r with friends or relatives? Three times a week 03/25/2024 How often do you attend [facility] or orthodox services? More than 4 times per year 03/25/2024 Do you belong to any clubs o r organizations such as faith groups, unions, fraternal or athletic groups, or [...] Date Recorded PHQ-2 Total Score 0 01/18/2024 [facility] - Occupational Stress Questionnaire [...] place to sleep or slept in a longterm (including now)? No 03/25/2024 Personal Safety Answer [...] on filedocumented in this encounter Care Teams Welfare Adviser Relationship Specialty Start Date End Date Jesu Alonso MD [address] [place] [address] PCP - General 10/19/20 Kemal Land MD [address] [place] [address] Referring Physician Hematology 01/17/19 Shiv Gonsalves MD [address] [place] [address] Consulting Physician Nephrology 01/01/22 Aly Mims MD [address] [place] [address] Surgeon Vascular Surgery 03/15/22 Ellen [place] OD [address] [place] [address] Referring Physician Optometry 07/25/22 Jasper Ruiz DO [address] [place] [address] Cardiology 06/24/23 Bud [place] MD [address] [facility] [address] [place] [address] Consulting Physician Vascular Surgery 07/15/23 Aly Chavis MD [address] [facility] [address] [facility] [address] [place] [address] Surgeon Surgery 09/19/23 Maria Luz De La Paz, paper carrierHelper Steel Fabrication 10/30/23 documented as of this encounter
--- OUTSIDE RECORDS SUMMARY | 2025-08-10 13:42 | XMS_ITS | Clinical Summary ---
Author Organization [facility] Address [address] [place] [address] Care Team Providers Care Laborer Wood Preserving Plant Name Role Phone Fito Pena MD Primary Care Provider [phone] Allergies Active Allergy Reactions Criticality Noted Date [...] Comments Blood Pressure 150/92 11/14/2023 4:46 PM CASE AIDE Pulse 90 11/14/2023 4:46 PM CASE AIDE Temperature 36.6 C (97.9 F) 11/14/2023 4:46 PM CASE AIDE Respiratory Rate 18 11/14/2023 4:46 PM CASE AIDE Oxygen Saturation 97% 11/14/2023 4:46 PM CASE AIDE Inhaled Oxygen Concentration - - Weight 132.8 kg (292 lb 12.3 oz) 11/14/2023 4:46 PM CASE AIDE Height 185.4 cm (6' 1) 11/14/2023 4:46 PM CASE AIDE Body Mass Index 38.63 11/14/2023 4:46 PM CASE AIDE Plan of Treatment Health Maintenance Due Date [...] this topic Insurance MEDICAID UHC Care Teams Laborer Wood Preserving Plant Relationship Specialty Start Date End Date Fito Pena MD [address] [address] PCP - General FAMILY PRACTICE 08/31/18
--- OUTSIDE RECORDS SUMMARY | 2025-08-10 13:42 | XMS_ITS | Encounter Summary ---
Author Organization [facility] Address [address] [place] [address] Care Team Providers Care Bicycle Inspector Name Role Phone Jesu Alonso MD Primary Care Provider [phone] Reason for Visit * Reason Onset Date Comments Imaging for review 06/23/2020 Encounter Details Date Type Department Care Team (Late st Contact Info) Description 06/23/2020 Telephone [facility] - [address] [facility] [address] [facility] [address] [place] [address] [place] [address] 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 SHEET FINISHER referred by Kemal Land for discitis, osteomyelitis [...] 09/15/2025 8:30 AM CDT Office Visit [facility] - [place] [address] [place] [address] Kemal Land MD [address] [facility] [address] [place] [address] documented as of this encounter Visit Diagnoses Not on filedocumented in this encounter Care Teams Bicycle Inspector Relationship Specialty Start Date End Date Jesu Alonso MD [address] [place] [address] PCP - General Internal Medicine 11/24/19 documented as of this encounter
--- OUTSIDE RECORDS SUMMARY | 2025-08-10 13:42 | XMS_ITS | Encounter Summary ---
Author Organization [facility] Healthcare Address [address] [place] [address] Care Team Providers Care Geotechnicial Properties Technician Name Role Phone Kemal Land MD Unavailable [phone] Jesu Alonso MD Primary Care Provide r Shiv Gonsalves MD Unavailable [phone] Aly Mims MD Unavailable Ellen [place] OD Unavailable Jasper Ruiz DO Unavailable [phone] Bud Moore MD Unavailable [phone] Aly Chavis MD Unavailable [phone] Maria Luz De La Paz RN Unavailable Unava ilable Encounter Details Date Type Department Care Team (Late st Contact Info) Description 06/28/2025 Results Follow-Up [facility] Transplant Kidney [address] [facility] [id number] [place] [address] Shirin Magana RN Hemoglobin A1c, Hepatic function [...] materials from doctor or pharmacy Never 02/09/2024 [facility] Utilities Answer Date Recorded In the past 12 months has e [employer], gas, oil, or water [employer] threatened to shut off services in your home? No 03/25/2024 Social Connection and Isolation Panel Answer Date Recorded In a typical week, how many times do you talk on the phone with family, friends, or neighbors? Three times a week 03/25/2024 How often do you get togethe r with friends or relatives? Three times a week 03/25/2024 How often do you attend [facility] or sikh services? More than 4 times per year 03/25/2024 Do you belong to any clubs o r organizations such as hoahaoism groups, unions, fraternal or athletic groups, or [...] Date Recorded PHQ-2 Total Score 0 01/18/2024 [facility] - Occupational Stress [...] place to sleep or slept in a detention (including now)? No 03/25/2024 Personal Safety Answer [...] Noted FKL 2.4, previous FKL within goal. Clerkyt message sent to the patient documented in this encounter Plan of Treatment Scheduled Procedures Name Priority Associated Diagnoses Date/Ti me TRANSPLANT KIDNEY ESRD (end stage renal disease) (HCC) documented as of this encounter Visit Diagnoses Not on filedocumented in this encounter Care Teams Geotechnicial Properties Technician Relationship Specialty Start Date End Date Jesu Alonso MD [address] [place] [address] PCP - General 10/19/20 Kemal Land MD [address] [facility] [address] [place] [address] Referring Physician Hematology 01/17/19 Shiv Gonsalves MD [address] [place] [address] Consulting Physician Nephrology 01/01/22 Aly Mims MD [address] [place] [address] Surgeon Vascular Surgery 03/15/22 Ellen [place], BREE [address] [place] [address] Referring Physician Optometry 07/25/22 Jasper Ruiz DO [address] [facility] [address] [place] [address] Cardiology 06/24/23 Bud [place] MD [address] [facility] [address] [address] Consulting Physician Vascular Surgery 07/15/23 Aly Chavis MD [address] [facility] [address] [address] Surgeon Surgery 09/19/23 Maria Luz De La Paz, topology teacherRn Residential 10/30/23 documented as of this encounter
--- NOTE | 2025-08-10 14:10 | ED.GENADULT ---
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 Patient says he woke up this morning with a fever of 105. He then took a cold shower which resolved his fever. Associated symptoms include a headache, fatigue, and mild nausea,vomiting, diarrhea, some chest discomfort and shortness of breath. He also has discomfort in his RLQ which is the site of his kidney transplant. Patient is on mycophenolate and tacrolimus for his kidney transplant which was performed at [facility]. Related Data Home Medications ?Medication ?Instructions ?Recorded ?Confirmed ?Last Taken ?Type folic acid 1 mg tablet 1 mg PO DAILY 10/07/19 02/21/25 Unknown History vitamin B complex and vitamin C 1 cap PO DAILY 10/07/19 02/21/25 Unknown History no.20-folic acid 1 mg capsule (Skamania Caps) aspirin 81 mg tablet,delayed 81 mg PO DAILY 02/18/24 02/21/25 Unknown History release atorvastatin 40 mg tablet 40 mg PO DAILY 02/18/24 02/21/25 Unknown History cholecalciferol (vitamin D3) 50 50 mcg PO BID 02/18/24 02/21/25 Unknown History mcg (2,000 unit) capsule mycophenolate sodium 360 mg 360 mg PO BID 02/18/24 02/21/25 Unknown History tablet,delayed release (Myfortic) pantoprazole 40 mg tablet,delayed 40 mg PO DAILY 02/18/24 02/21/25 Unknown History release (Protonix) prednisone 5 mg tablet 5 mg PO DAILY 02/18/24 02/21/25 Unknown History sulfamethoxazole 800 1 tablet PO 3XW 02/18/24 02/21/25 Unknown History mg-trimethoprim 160 mg tablet (Bactrim DS) tacrolimus 4 mg tablet,extended 10 mg PO DAILY 02/18/24 02/21/25 Unknown History release 24 hr (Envarsus XR) warfarin 4 mg tablet 8 mg PO DAILY 02/18/24 02/21/25 Unknown History carvedilol 25 mg tablet 37.5 mg PO BID 02/21/25 03/10/25 Unknown History Allergies Allergy/AdvReac Type Severity Reaction Status Date / Time bacitracin Allergy Unknown RASH THAT Verified 07/21/25 11:34 SPREADS benzalkonium chloride Allergy Unknown RASH THAT Verified 07/21/25 11:34 SPREADS gramicidin D Allergy Unknown RASH THAT Verified 07/21/25 11:34 SPREADS hydrocortisone Allergy Unknown RASH THAT Verified 07/21/25 11:34 SPREADS neomycin Allergy Unknown Rash Verified 07/21/25 11:34 polymyxin B Allergy Unknown RASH THAT Verified 07/21/25 11:34 SPREADS PMF Past Medical History Medical History Arm pain Hypotensive episode Preop cardiovascular exam Sensation of fullness in both ears Impacted cerumen of both ears Otitis externa of left ear Cerumen impaction Oral thrush Hemolytic-uremic syndrome Weakness of both lower limbs Other specified disorders of kidney and ureter Hypertension secondary to other renal disorders Gastroesophageal reflux disease without esophagitis 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 History of Clostridium difficile colitis Anemia Dialysis patient Chronic renal failure GERD (gastroesophageal reflux disease) IBS (irritable bowel syndrome) Sleep apnea Pneumonia Asthma DVT (deep venous thrombosis) H/O: HTN (hypertension) A-fib History of angina CVA (cerebral vascular accident) Surgical History Surgical History Kidney transplanted H/O parathyroidectomy History of tonsillectomy Family History Family History Sibling Hypertension Patient's sister is in good health Patient's brother is in good health Mother Family history of rheumatoid arthritis Family history of neuropathy Father Patient's father is in good health Carcinoma of colon Social History Social History Smoking status: Former smoker Alcohol intake: never Substance use: never Substance use type: does not use Do You Feel Safe in your Home?: Yes Lack of Transportation: No Lack of Food: Sometimes True Current Housing: I Have Housing Concerned About Future Housing: No Difficulty Paying Gas/Electric Bills: YES Difficulty Paying for Meds: No Currently Unemployed: YES Education: High School Diploma/GED Difficulty w/ Childcare or Family Care: YES Gender identity (if verbalized by the patient): Male Exam Narrative: APPEARANCE: No apparent distress. Head: atraumatic. EYES: EOMI, NOSE: Atraumatic NECK: Trachea midline RESPIRATORY: No increased rate of breathing clear to auscultation CARDIOVASCULAR: RRR, no peripheral edema ABDOMINAL: Mild tenderness in the right lower quadrant without guarding or rebound MUSCULOSKELETAl: No obvious deformities NEURO: Alert. Moving 4/4 extremities SKIN:: Warm, dry. Normal color PSYCHIATRIC: Normal affect Course Vital Signs Vital signs: Vital Signs Pulse Rate 80 08/10/25 12:55 Respiratory Rate 27 H 08/10/25 12:55 Blood Pressure 178/102 H 08/10/25 12:55 Pulse Oximetry 100 08/10/25 12:55 Temperature 97.9 F 08/10/25 13:12 Pulse Rate 69 08/10/25 16:45 Respiratory Rate 16 08/10/25 16:45 Blood Pressure 165/107 H 08/10/25 16:01 Pulse Oximetry 100 08/10/25 16:45 Oxygen Delivery Room Air 08/10/25 13:12 Medical Decision Making [facility] Narrative Medical decision making narrative: -Course: This is a 35-year-old male with history of kidney transplant presenting for a fever at home. Patient is complaining of a bit of everything including chest pain, difficulty breathing, abdominal pain, body aches, headache, nausea, vomiting, diarrhea. Patient given fluids and Tylenol. Broad workup obtained. Patient is afebrile here in the emergency department is well appearing overall. He has no focal findings on exam. White count 7.3. Hemoglobin 12.9. Metabolic panel within normal limits. BUN of 25 and creatinine of 2.02 which is the patient's baseline per records. Lactic was 1.0. Phosphorus is 2.4 and magnesium was 1.4 which has been repleted. Liver enzymes are at baseline. Urine is not indicative of infection. Viral swabs are negative. Chest x-ray no signs of pneumonia CT abdomen pelvis showed mild urothelial enhancement which may indicate ascending infection although when correlated with the urine there is no evidence of infection. EKG shows ST elevations with diffuse T-wave inversions most consistent w/ benign early repol. This was compared to previous EKGs from 2024 and is unchanged. I spoke with Dr. Parham who is the transplant specialist at [facility]. She requested I add on erlichiosis PCR which has been ordered although is a send out. She will have their tree care foreman reach out to the patient to ensure that he is doing well over the next several days. Patient was re-evaluated and states that he feels much better. He says that all of his symptoms have resolved. His vital signs are stable. He is very well appearing on exam is comfortable going home. Patient was informed was results and discharged with transplant team follow-up. -DDX includes but is not limited to: Viral syndrome, gastroenteritis, UTI/pyelonephritis, pneumonia, sepsis Vital Signs Vital Signs: Vital Signs Pulse Rate 80 08/10/25 12:55 Respiratory Rate 27 H 08/10/25 12:55 Blood Pressure 178/102 H 08/10/25 12:55 Pulse Oximetry 100 08/10/25 12:55 Temperature 97.9 F 08/10/25 13:12 Pulse Rate 69 08/10/25 16:45 Respiratory Rate 16 08/10/25 16:45 Blood Pressure 165/107 H 08/10/25 16:01 Pulse Oximetry 100 08/10/25 16:45 Oxygen Delivery Room Air 08/10/25 13:12 Lab Data 08/10/25 14:01 08/10/25 14:01 Labs: Lab Results 08/10/25 08/10/25 08/10/25 Range/Units 14:01 14:14 14:18 WBC 7.3 (4.5-10.0) K/mm3 RBC 4.41 L (4.6-6.20) M/mm3 Hgb 12.9 L (14.0-18.0) g/dL Hct 41.1 L (42.0-52.0) % MCV 93.2 (80-100) fl MCH 29.3 (26-34) pg MCHC 31.4 L (32-36) g/dl RDW 13.4 (11.5-14.5) % Plt Count 152 (150-375) k/mm3 MPV 11.5 H (7.4-10.4) fl Immature Gran % (Auto) 0.7 H (0-0.5) % Neut % (Auto) 72.8 (45.5-73.1) % Lymph % (Auto) 16.2 L (18.3-44.2) % Vigo % (Auto) 8.6 H (2.6-8.5) % Eos % (Auto) 1.4 (0-4.4) % Baso % (Auto) 0.3 (0.2-1.2) % Lymph # (Auto) 1.18 (0.9-3.2) K/mm3 Vigo # (Auto) 0.6 (0.1-0.6) K/mm3 Eos # (Auto) 0.1 (0-0.3) K/mm3 Baso # (Auto) 0.0 (0.0-0.1) K/mm3 Abs Immat Gran (auto) 0.05 H (0.00-0.031) K/mm3 Absolute Neuts (auto) 5.3 (1.3-6.7) K/mm3 Absolute Nucleated RBC 0.000 (0.0-0.012) K/mm3 Nucleated RBC % 0.0 (0.0-0.2) % Sodium 136 L (137-145) mmol/L Potassium 4.2 (3.4-5.0) mmol/L Chloride 107 (98-107) mmol/L Carbon Dioxide 21 L (22-30) mmol/L Anion Gap 8 (4-12) mmol/L BUN 25 H (9-20) mg/dL Creatinine 2.02 H (0.7-1.3) mg/dL Estim Creat Clear Calc 69 ml/min Estimated GFR 37 L (59 - ) Glucose 94 (65-110) mg/dL Lactic Acid 1.0 (0.7-2.0) mmol/L Calcium 9.0 (8.4-10.2) mg/dL Phosphorus 2.4 L (2.5-4.5) mg/dL Magnesium 1.4 L (1.6-2.3) mg/dL Total Bilirubin 0.3 (0.2-1.3) mg/dL AST 25 (17-59) U/L ALT 17 (6-50) U/L Alkaline Phosphatase 109 (38-126) U/L Total Protein 7.4 (6.3-8.2) g/dL Albumin 4.0 (3.5-5.1) g/dL Lipase 58 (23-300) U/L Urine Color Yellow (Yellow) Urine Appearance Clear (Clear) Urine pH 5.5 (5.0-9.0) Ur Specific [place] 1.020 (1.001-1.035) Urine Protein 1+ H (Negative) mg/dL Urine Glucose (UA) Negative (Negative) mg/dL Urine Ketones Negative (Negative) mg/dL Ur Blood (Man) 1+ H (Negative) Urine Nitrate Negative (Negative) Urine Bilirubin Negative (Negative) Urine Urobilinogen 0.2 (<2.0) mg/dL Leukocyte Esterase Rfl Negative (Negative) ANTONIA/UL Urine RBC 6-10 H (0-2) /hpf Urine WBC 0-5 (0-3) /hpf Ur Squamous Epith Cells None seen (Few) /hpf Urine Bacteria None seen /hpf Urine Casts 0-2 Influenza A (RT-PCR) Negative (Negative) Influenza B (RT-PCR) Negative (Negative) RSV (RT-PCR) Negative (Negative) SARS-CoV-2 RNA (RT-PCR) Negative (Negative) Blood Type B Positive Antibody Screen Negative Discharge Plan Discharge Clinical Impression: Fever Patient Disposition: Home Condition: Stable Instructions: Antibiotic Form, Fever in Adults (ED) Additional Instructions: You were seen for a fever. We did not find a cause but all of your tests were reassuring. Please follow-up with the transplant team for further management. If you develop fevers or any new symptoms or worsening symptoms please return to the ED for re-evaluation. Patient Language: Bengali Prescriptions: No Action folic acid 1 mg Tablet 1 mg PO DAILY Skamania Caps 1 mg Capsule 1 cap PO DAILY fluticasone propionate 50 mcg/actuation spray,suspension See Rx Instructions .ROUTE .COMPLEX Qty: 48 2RF Dose Instruction: INSTILL 1 SPRAY INTRANASALLY TWICE A DAY ADMINISTER INTO EACH NOSTRIL Rx Instructions: INSTILL 1 SPRAY INTRANASALLY TWICE A DAY ADMINISTER INTO EACH NOSTRIL carvedilol 25 mg tablet 37.5 mg PO BID Rx Instructions: must administer with a meal/food ipratropium-albuterol 0.5 mg-3 mg(2.5 mg base)/3 mL solution for nebulization 3 ml inhalation Q4H PRN (Reason: shortness of breath or wheezing) Qty: 90 0RF aspirin 81 mg tablet,delayed release (DR/EC) 81 mg PO DAILY Patient Comments: .. atorvastatin 40 mg tablet 40 mg PO DAILY cholecalciferol (vitamin D3) 50 mcg (2,000 unit) capsule 50 mcg PO BID sulfamethoxazole-trimethoprim [Bactrim DS] 800-160 mg tablet 1 tablet PO 3XW Envarsus XR 4 mg tablet extended release 24 hr 10 mg PO DAILY Rx Instructions: must be taken on empty stomach mycophenolate sodium [Myfortic] 360 mg tablet,delayed release (DR/EC) 360 mg PO BID pantoprazole [Protonix] 40 mg tablet,delayed release (DR/EC) 40 mg PO DAILY prednisone 5 mg tablet 5 mg PO DAILY warfarin 4 mg tablet 8 mg PO DAILY omeprazole 40 mg capsule,delayed release(DR/EC) 40 mg PO BID Qty: 180 2RF Follow-up/Referrals: Jesu Alonso MD [Primary Care Provider, Internal Medicine]
[2025-08-10 14:11] LABS: Hematocrit 41.1 % (42.0-52.0); Hemoglobin 12.9 g/dL (14.0-18.0); Immature Granulocyte Percent A 0.7 % (0-0.5); Lymphocytes Absolute Auto 1.18 K/mm3 (0.9-3.2); Mean Corpuscular HGB Conc 31.4 g/dl (32-36); Mean Corpuscular Hemoglobin 29.3 pg (26-34); Mean Corpuscular Volume 93.2 fl (80-100); Nucleated Red Blood Cells Absolute Auto 0.000 K/mm3 (0.0-0.012); Nucleated Red Blood Cells Perc 0.0 % (0.0-0.2); Platelet Count Result 152 k/mm3 (150-375); Red Blood Count 4.41 M/mm3 (4.6-6.20); White Blood Count 7.3 K/mm3 (4.5-10.0)
[2025-08-10 14:31] LABS: Add Urine Microscopic? YES; Appearance Urine Clear (Clear); Glucose Urine UA Negative (Negative); Leukocyte Esterase Ur Negative LEU/UL (Negative); Nitrate Urine Negative (Negative); Non Pathogenic Casts 0-2; Specific Grav Ur 1.020 (1.001-1.035)
[2025-08-10 14:57] LABS: Alanine Aminotransferase 17 U/L (6-50); Albumin Level 4.0 g/dL (3.5-5.1); Alkaline Phosphatase 109 U/L (38-126); Anion Gap 8 mmol/L (4-12); Aspartate Amino Transferase 25 U/L (17-59); Bilirubin,Total 0.3 mg/dL (0.2-1.3); Blood Urea Nitrogen 25 mg/dL (9-20); Calcium 9.0 mg/dL (8.4-10.2); Carbon Dioxide 21 mmol/L (22-30); Chloride 107 mmol/L (98-107); Estimated CRCL calculation 69 ml/min; Estimated Glomerular Filt Rate 37; Glucose 94 mg/dL (65-110); Lipase 58 U/L (23-300); Magnesium 1.4 mg/dL (1.6-2.3); Potassium 4.2 mmol/L (3.4-5.0); Sodium 136 mmol/L (137-145); Total Protein 7.4 g/dL (6.3-8.2)
[2025-08-10 15:08] LABS: Influenza A QL RT-PCR Negative (Negative); Influenza B QL RT-PCR Negative (Negative); RSV RNA, RT-PCR Negative (Negative); SARS-CoV-2 RNA PCR Negative (Negative)
--- NOTE | 2025-08-10 16:01 | PC.NURSE ---
Dr Frankel made aware that the patient's BP has remained elevated and with history of kidney transplant this RN has requested something for hypertension. Dr stated that we needed to administer the patient normal BP medications that he takes at bedtime now. medication order placed. patient informed.
[2025-08-10] MEDS: METOPROLOL TARTRATE 50 MG TAB 100 MG PO (16:05)
[2025-08-10] MEDS: MAGNESIUM SULF 2 GM/WATER 50ML 2 GM/50 ML BAG IVPB (16:36)
[2025-08-10] MEDS: POTASSIUM/PHOSPHORUS/SODIUM 1.5 GM PACKET 1 PACKET PO (16:41)
[2025-08-15 18:08] LABS: E. chaffeensis IgG Negative (Neg:<1:64); E. chaffeensis IgM Negative (Neg:<1:20)
== END 2025-08-10 19:46 | disposition home or self-care (01) ==
PROVIDERS: Emergency Provider Emergency Medicine; PCP Emergency Medicine
DX: R50.9 Fever, unspecified (principal); Z20.822 Contact with and (suspected) exposure to COVID-19; I12.0 Hypertensive chronic kidney disease with stage 5 chronic kidney disease or end stage renal disease; N18.6 End stage renal disease; D59.30 Hemolytic-uremic syndrome, unspecified; Z99.2 Dependence on renal dialysis; I48.91 Unspecified atrial fibrillation; J45.909 Unspecified asthma, uncomplicated; D64.9 Anemia, unspecified; K21.9 Gastro-esophageal reflux disease without esophagitis; K58.9 Irritable bowel syndrome, unspecified; G47.30 Sleep apnea, unspecified; Z94.0 Kidney transplant status; Z87.01 Personal history of pneumonia (recurrent); Z86.73 Personal history of transient ischemic attack (TIA), and cerebral infarction without residual deficits; Z87.891 Personal history of nicotine dependence; Z90.89 Acquired absence of other organs; Z79.82 Long term (current) use of aspirin; Z79.899 Other long term (current) drug therapy; Z79.01 Long term (current) use of anticoagulants; R94.31 Abnormal electrocardiogram [ECG] [EKG]
CPT/HCPCS: 36415; 71045; 74177; 80053; 81001; 83605; 83690; 83735; 84100; 85025; 86666; 86850; 86900; 86901; 87040; 87637; 93005; 96365; 96366; 99284; A9270; J3475; Q9967